=== PATIENT | male | born 1945 | race Hispanic/Latino ===

== ENCOUNTER 2021-11-23 22:41 | Inpatient (IN) | payer MEDICARE ==
[2021-11-23] MEDS ORDERED: ACETAMINOPHEN 325 MG TAB PO PRN (23:05)
[2021-11-23] MEDS ORDERED: ONDANSETRON 4 MG/2 ML INJ IV PRN (23:05)
[2021-11-23] MEDS ORDERED: ALBUTEROL 2.5 MG/3 ML NEBU IH PRN (23:05)
[2021-11-24 02:53] LABS: Hematocrit 41.1 % (35.5-45.6); Mean Corpuscular HGB Conc 32 % (32-34); Mean Corpuscular Volume 95 fl (84-94); Platelet Count 133 K/mm3 (140-440); Red Blood Count 4.32 M/mm3 (3.65-5.03)
[2021-11-24 02:55] LABS: Red Cell Distribution Width 20.7 % (13.2-15.2)
[2021-11-24] MEDS: cefTRIAXone/NS 2 GM/100 ML 2 GM/100 ML BAG IV SCH (02:55)
[2021-11-24] MEDS: MORPHINE 2 MG/1 ML INJ IV PRN (03:07)
[2021-11-24 03:35] LABS: Basophils % (Manual) 0 % (0.0-1.8); Eosinophils % (Manual) 0 % (0.0-4.3); Total Cells Counted 100
[2021-11-24 03:36] LABS: Anisocytosis 1+; Platelet Estimate Consistent w Auto
[2021-11-24 03:49] LABS: INR 1.14 (0.87-1.13)
--- NOTE | 2021-11-24 03:58 | History and Physical Report ---
History of Present Illness Date of examination: 11/24/21 Date of admission: 11/23/21 23:19 Chief complaint: Sepsis Lethargy History of present illness: This is a 76 years old male with past medical history of end-stage renal disease on hemodialysis Thursday, , Thursday and cirrhosis was brought to the hospital from [place] because of sepsis and left lower lobe pneumonia. Most of the history is obtained from the chart patient initially presented to the [facility] on November 18 with complaint of nausea vomiting that began the night of. Around 9 PM. Patient was bedtime at the [facility] and had his last meal around 5 PM. In [facility] patient is found to have pneumonia with effusion patient reportedly has a history of liver failure as well as CT there revealed cirrhosis. In the ER patient reportedly appeared to be dehydrated and was found to have in septic shock with mean arterial pressure of 54. He was admitted to the hospital was put on antibiotic and Levophed. Patient had leukocytosis of 14.66. Renal function indicative of end-stage renal disease, lactic at 10 downtrending to 5.5 . patient was admitted for septic shock, pneumonia and end-stage renal disease Past History Past Medical History: ESRD, other (Cirrhosis, pneumonia, septic shock) Past Surgical History: No surgical history, Other Social history: other (Former smoker) Family history: hypertension Medications and Allergies Allergies Allergy/AdvReac Type Severity Reaction Status Date / Time No Known Allergies Allergy Verified 11/24/21 02:09 Active Meds: Active Medications Acetaminophen (Acetaminophen 325 Mg Tab) 650 mg PO Q4H PRN PRN Reason: Pain MILD(1-3)/Fever >100.5/HOLLOWAY Albuterol (Albuterol 2.5 Mg/3 Ml Nebu) 2.5 mg IH Q4HRT PRN PRN Reason: Shortness Of Breath Albuterol/Ipratropium (Ipratropium/Albuterol Sulfate 3 Ml Ampul.Neb) 1 ampul IH Q6HRT [facility] Famotidine (Famotidine 20 Mg Tab) 20 mg PO BID [facility] Ceftriaxone Sodium (Rocephin/Ns 2 Gm/100 Ml) 2 gm in 100 mls @ 200 mls/hr IV Q24H [facility]; Protocol Last Admin: 11/24/21 02:55 Dose: 200 mls/hr Morphine Sulfate (Morphine 2 Mg/1 Ml Inj) 2 mg IV Q4H PRN PRN Reason: Pain, Moderate (4-6) Last Admin: 11/24/21 03:07 Dose: 2 mg Morphine Sulfate (Morphine 4 Mg/1 Ml Inj) 4 mg IV Q4H PRN PRN Reason: Pain , Severe (7-10) Ondansetron HCl (Ondansetron 4 Mg/2 Ml Inj) 4 mg IV Q8H PRN PRN Reason: Nausea And Vomiting Sodium Chloride (Sodium Chloride 0.9% 10 Ml Flush Syringe) 10 ml IV BID [facility] Sodium Chloride (Sodium Chloride 0.9% 10 Ml Flush Syringe) 10 ml IV PRN PRN PRN Reason: LINE FLUSH Review of Systems All systems: negative Constitutional: fatigue, weakness, malaise, lethargy Exam - Constitutional Vitals: Temp Pulse Resp BP Pulse Ox 98 F 121 H 22 111/72 100 11/24/21 01:35 11/24/21 03:01 11/24/21 03:07 11/24/21 03:01 11/24/21 03:01 General appearance: Present: mild distress, well-nourished - EENT Eyes: Present: PERRL ENT: hearing intact, clear oral mucosa - Neck Neck: Present: supple, normal ROM - Respiratory Respiratory effort: normal Respiratory: bilateral: CTA - Cardiovascular Heart Sounds: Present: S1 & S2. Absent: rub, click - Extremities Extremities: pulses symmetrical, No edema Peripheral Pulses: within normal limits - Abdominal General gastrointestinal: Present: soft, non-tender, non-distended, normal bowel sounds Male genitourinary: Present: normal - Integumentary Integumentary: Present: clear, warm, dry - Musculoskeletal Musculoskeletal: gait normal, strength equal bilaterally - Psychiatric Psychiatric: other (Patient is altered mental status) - Neurologic Neurologic: CNII-XII intact, moves all extremities, other (Patient is altered mental status) Results - Labs CBC & Chem 7: 11/24/21 02:37 11/24/21 03:19 Labs: Laboratory Last Values WBC 9.0 K/mm3 (4.5-11.0) 11/24/21 02:37 RBC 4.32 M/mm3 (3.65-5.03) 11/24/21 02:37 Hgb 13.0 gm/dl (11.8-15.2) 11/24/21 02:37 Hct 41.1 % (35.5-45.6) 11/24/21 02:37 MCV 95 fl (84-94) H 11/24/21 02:37 MCH 30 pg (28-32) 11/24/21 02:37 MCHC 32 % (32-34) 11/24/21 02:37 RDW 20.7 % (13.2-15.2) H 11/24/21 02:37 Plt Count 133 K/mm3 (140-440) L 11/24/21 02:37 Add Manual Diff Complete 11/24/21 02:37 Total Counted 100 11/24/21 02:37 Seg Neuts % (Manual) 80.0 % (40.0-70.0) H 11/24/21 02:37 Band Neutrophils % 0 % 11/24/21 02:37 Lymphocytes % (Manual) 9.0 % (13.4-35.0) L 11/24/21 02:37 Reactive Lymphs % (Man) 1.0 % 11/24/21 02:37 Monocytes % (Manual) 10.0 % (0.0-7.3) H 11/24/21 02:37 Eosinophils % (Manual) 0 % (0.0-4.3) 11/24/21 02:37 Basophils % (Manual) 0 % (0.0-1.8) 11/24/21 02:37 Metamyelocytes % 0 % 11/24/21 02:37 Myelocytes % 0 % 11/24/21 02:37 Promyelocytes % 0 % 11/24/21 02:37 Blast Cells % 0 % 11/24/21 02:37 Nucleated RBC % Not Reportable 11/24/21 02:37 Seg Neutrophils # Man 7.2 K/mm3 (1.8-7.7) 11/24/21 02:37 Band Neutrophils # 0.0 K/mm3 11/24/21 02:37 Lymphocytes # (Manual) 0.8 K/mm3 (1.2-5.4) L 11/24/21 02:37 Abs React Lymphs (Man) 0.1 K/mm3 11/24/21 02:37 Monocytes # (Manual) 0.9 K/mm3 (0.0-0.8) H 11/24/21 02:37 Eosinophils # (Manual) 0.0 K/mm3 (0.0-0.4) 11/24/21 02:37 Basophils # (Manual) 0.0 K/mm3 (0.0-0.1) 11/24/21 02:37 Metamyelocytes # 0.0 K/mm3 11/24/21 02:37 Myelocytes # 0.0 K/mm3 11/24/21 02:37 Promyelocytes # 0.0 K/mm3 11/24/21 02:37 Blast Cells # 0.0 K/mm3 11/24/21 02:37 WBC Morphology Not Reportable 11/24/21 02:37 Hypersegmented Neuts Not Reportable 11/24/21 02:37 Hyposegmented Neuts Not Reportable 11/24/21 02:37 Hypogranular Neuts Not Reportable 11/24/21 02:37 Smudge Cells Not Reportable 11/24/21 02:37 Toxic Granulation Not Reportable 11/24/21 02:37 Toxic Vacuolation Not Reportable 11/24/21 02:37 Dohle Bodies Not Reportable 11/24/21 02:37 Pelger-Huet Anomaly Not Reportable 11/24/21 02:37 Jasmeet Rods Not Reportable 11/24/21 02:37 Platelet Estimate Consistent w auto 11/24/21 02:37 Clumped Platelets Not Reportable 11/24/21 02:37 Plt Clumps, EDTA Not Reportable 11/24/21 02:37 Large Platelets Not Reportable 11/24/21 02:37 Giant Platelets Not Reportable 11/24/21 02:37 Platelet Satelliting Not Reportable 11/24/21 02:37 Plt Morphology Comment Not Reportable 11/24/21 02:37 RBC Morphology Not Reportable 11/24/21 02:37 Dimorphic RBCs Not Reportable 11/24/21 02:37 Polychromasia Not Reportable 11/24/21 02:37 Hypochromasia Not Reportable 11/24/21 02:37 Poikilocytosis Not Reportable 11/24/21 02:37 Anisocytosis 1+ 11/24/21 02:37 Microcytosis Not Reportable 11/24/21 02:37 Macrocytosis Not Reportable 11/24/21 02:37 Spherocytes Not Reportable 11/24/21 02:37 Pappenheimer Bodies Not Reportable 11/24/21 02:37 Sickle Cells Not Reportable 11/24/21 02:37 Target Cells Not Reportable 11/24/21 02:37 Tear Drop Cells Not Reportable 11/24/21 02:37 Ovalocytes Not Reportable 11/24/21 02:37 Helmet Cells Not Reportable 11/24/21 02:37 [place] Bodies Not Reportable 11/24/21 02:37 [place] Rings Not Reportable 11/24/21 02:37 [place] Cells Not Reportable 11/24/21 02:37 Bite Cells Not Reportable 11/24/21 02:37 Crenated Cell Not Reportable 11/24/21 02:37 Elliptocytes Not Reportable 11/24/21 02:37 Acanthocytes (Spur) Not Reportable 11/24/21 02:37 Rouleaux Not Reportable 11/24/21 02:37 Hemoglobin C Crystals Not Reportable 11/24/21 02:37 Schistocytes Not Reportable 11/24/21 02:37 Malaria parasites Not Reportable 11/24/21 02:37 Christopher Bodies Not Reportable 11/24/21 02:37 Hem Pathologist Commnt No 11/24/21 02:37 PT 15.9 Sec. (12.2-14.9) H 11/24/21 03:19 INR 1.14 (0.87-1.13) H 11/24/21 03:19 POC Glucose 75 mg/dL (70-105) 11/24/21 01:38 Assessment and Plan VTE prophylaxis?: Mechanical Plan of care discussed with patient/family: Yes - Patient Problems (1) Sepsis Current Visit: Yes Status: Acute Plan to address problem: Admit the patient to the [facility] overnight. Rocephin 2 g IV daily. Zithromax 500 mg IV daily. We will do the blood culture and sputum culture. consult infectious disease if needed. Recheck CBC BMP in the morning (2) Pneumonia Current Visit: Yes Status: Acute Plan to address problem: Oxygen by nasal cannula 3 L/min. DuoNeb by nebulizer every 4 hours. Albuterol via nebulizer every 4 hours as needed. Rocephin 2 g IV daily. Zithromax 500 mg IV daily. We will do the blood culture and sputum culture. consult infectious disease if needed. Recheck CBC BMP in the morning (3) End-stage renal disease on hemodialysis Current Visit: Yes Status: Acute Plan to address problem: Will consult nephrology for hemodialysis in the morning. Recheck BMP in the morning. Avoid nephrotoxic drug. Renally dose medication (4) Cirrhosis Current Visit: Yes Status: Acute Plan to address problem: We will continue the home medication. Recheck CMP in the morning (5) Metabolic encephalopathy Current Visit: Yes Status: Acute Plan to address problem: Most likely secondary to sepsis, cirrhosis and end-stage renal disease. Rocephin 2 g IV daily. Zithromax 500 mg IV daily. We will do the blood culture and sputum culture. consult infectious disease. Recheck CBC BMP in the morning (6) Transaminitis Current Visit: Yes Status: Acute Plan to address problem: Patient has very high liver function test. Pepcid 20 mg p.o. twice daily. Will consult GI for evaluation. Recheck CMP in the morning (7) Elevated troponin Current Visit: Yes Status: Acute Plan to address problem: Aspirin 81 mg p.o. daily. We will hold the Lipitor for elevated liver function test. Consult cardiology for evaluation. Echocardiogram (8) DVT prophylaxis Current Visit: Yes Status: Acute Plan to address problem: SCD for DVT prophylaxis. Pepcid 20 mg IV every 12 hours for GI prophylaxis. Patient is a full code
--- NOTE | 2021-11-24 04:06 | XRay Report ---
Chest single view INDICATION: Dyspnea IMPRESSION: Cardiomegaly with mild bilateral cardiopulmonary edema and small pleural effusions. Signer Name: Alfonzo Cortez MD Signed: 11/24/2021 4:02 AM Workstation Name: [email or web address]
[2021-11-24 04:09] LABS: Creatine Kinase MB 2.8 ng/mL (0.0-4.0)
[2021-11-24] MEDS ORDERED: cefTRIAXone/NS 2 GM/100 ML 2 GM/100 ML BAG IV SCH (05:00)
[2021-11-24 05:11] LABS: Albumin 3.5 g/dL (3.9-5); Calcium 9.4 mg/dL (8.4-10.2); Chol/HDL Ratio 6.27 %
[2021-11-24] MEDS: AZITHROMYCIN/NS 500 MG/250 ML 500 MG/250 ML BAG IV SCH (05:15)
[2021-11-24] MEDS: FAMOTIDINE 20 MG TAB PO SCH ×2 (09:21→22:59)
[2021-11-24] MEDS: ASPIRIN 81 MG TAB CHEW PO SCH (09:21)
[2021-11-24] MEDS: IPRATROPIUM/ALBUTEROL SULFATE 3 ML AMPUL.NEB IH SCH (10:10)
--- NOTE | 2021-11-24 11:43 | Gastroenterology Consultation ---
History of Present Illness - Reason for Consult Consult date: 11/24/21 abnormal liver enzymes Requesting physician: VALERIE VIZCAINO - History of Present Illness The patient is a 76 yo male with h/o esrd and cirrhosis who presented from hospital in [place] with sepsis/pneumonia and AMS. History obtained from chart review and staff as patient unable to provide history. [place], consuming alcohol, found to have pneumonia/sepsis. h e is not providing history at time of exam, opens eyes but not much more. no prior records. abnormal liver enzymes on admission, unclear baseline. Past History Past Medical History: ESRD, other (Cirrhosis, pneumonia, septic shock) Past Surgical History: No surgical history, Other Social history: other (Former smoker) Family history: hypertension Medications and Allergies Allergies Allergy/AdvReac Type Severity Reaction Status Date / Time No Known Allergies Allergy Verified 11/24/21 02:09 Active Meds: Active Medications Acetaminophen (Acetaminophen 325 Mg Tab) 650 mg PO Q4H PRN PRN Reason: Pain MILD(1-3)/Fever >100.5/[place] Albuterol (Albuterol 2.5 Mg/3 Ml Nebu) 2.5 mg IH Q4HRT PRN PRN Reason: Shortness Of Breath Albuterol/Ipratropium (Ipratropium/Albuterol Sulfate 3 Ml Ampul.Neb) 1 ampul IH Q6HRT [facility] Last Admin: 11/24/21 10:10 Dose: Not Given Aspirin (Aspirin 81 Mg Tab Chew) 81 mg PO QDAY [facility] Last Admin: 11/24/21 09:21 Dose: 81 mg Famotidine (Famotidine 20 Mg Tab) 20 mg PO BID [facility] Last Admin: 11/24/21 09:21 Dose: 20 mg Ceftriaxone Sodium (Rocephin/Ns 2 Gm/100 Ml) 2 gm in 100 mls @ 200 mls/hr IV Q24H [facility]; Protocol Last Admin: 11/24/21 02:55 Dose: 200 mls/hr Azithromycin (Zithromax/Ns) 500 mg in 250 mls @ 250 mls/hr IV Q24H [facility] Stop: 11/30/21 23:59 Last Admin: 11/24/21 05:15 Dose: 250 mls/hr Morphine Sulfate (Morphine 2 Mg/1 Ml Inj) 2 mg IV Q4H PRN PRN Reason: Pain, Moderate (4-6) Last Admin: 11/24/21 03:07 Dose: 2 mg Morphine Sulfate (Morphine 4 Mg/1 Ml Inj) 4 mg IV Q4H PRN PRN Reason: Pain , Severe (7-10) Ondansetron HCl (Ondansetron 4 Mg/2 Ml Inj) 4 mg IV Q8H PRN PRN Reason: Nausea And Vomiting Sodium Chloride (Sodium Chloride 0.9% 10 Ml Flush Syringe) 10 ml IV BID [facility] Last Admin: 11/24/21 09:21 Dose: 10 ml Sodium Chloride (Sodium Chloride 0.9% 10 Ml Flush Syringe) 10 ml IV PRN PRN PRN Reason: LINE FLUSH Reviewed/updated patient's home and current medications Review of Systems - Review of Systems ROS unobtainable: due to mental status Exam - Constitutional Vital Signs: Temp Pulse Resp BP Pulse Ox 97.6 F 101 H 16 138/70 100 11/24/21 04:00 11/24/21 10:00 11/24/21 10:00 11/24/21 10:00 11/24/21 09:30 General appearance: no acute distress - Respiratory Respiratory effort: normal Respiratory: bilateral: CTA - Cardiovascular Rhythm: regular Heart Sounds: Present: S1 & S2 - Gastrointestinal General gastrointestinal: Present: distended, other (+ ascites) - Neurologic Neurological: disoriented - Labs CBC & Chem 7: 11/24/21 02:37 11/24/21 03:19 Lab Results: Laboratory Results - last 24 hr 11/24/21 11/24/21 11/24/21 01:38 02:37 03:19 WBC 9.0 RBC 4.32 Hgb 13.0 Hct 41.1 MCV 95 H MCH 30 MCHC 32 RDW 20.7 H Plt Count 133 L Add Manual Diff Complete Total Counted 100 Seg Neuts % (Manual) 80.0 H Band Neutrophils % 0 Lymphocytes % (Manual) 9.0 L Reactive Lymphs % (Man) 1.0 Monocytes % (Manual) 10.0 H Eosinophils % (Manual) 0 Basophils % (Manual) 0 Metamyelocytes % 0 Myelocytes % 0 Promyelocytes % 0 Blast Cells % 0 Nucleated RBC % Not Reportable Seg Neutrophils # Man 7.2 Band Neutrophils # 0.0 Lymphocytes # (Manual) 0.8 L Abs React Lymphs (Man) 0.1 Monocytes # (Manual) 0.9 H Eosinophils # (Manual) 0.0 Basophils # (Manual) 0.0 Metamyelocytes # 0.0 Myelocytes # 0.0 Promyelocytes # 0.0 Blast Cells # 0.0 WBC Morphology Not Reportable Hypersegmented Neuts Not Reportable Hyposegmented Neuts Not Reportable Hypogranular Neuts Not Reportable Smudge Cells Not Reportable Toxic Granulation Not Reportable Toxic Vacuolation Not Reportable Dohle Bodies Not Reportable Pelger-Huet Anomaly Not Reportable Jasmeet Rods Not Reportable Platelet Estimate Consistent w auto Clumped Platelets Not Reportable Plt Clumps, EDTA Not Reportable Large Platelets Not Reportable Giant Platelets Not Reportable Platelet Satelliting Not Reportable Plt Morphology Comment Not Reportable RBC Morphology Not Reportable Dimorphic RBCs Not Reportable Polychromasia Not Reportable Hypochromasia Not Reportable Poikilocytosis Not Reportable Anisocytosis 1+ Microcytosis Not Reportable Macrocytosis Not Reportable Spherocytes Not Reportable Pappenheimer Bodies Not Reportable Sickle Cells Not Reportable Target Cells Not Reportable Tear Drop Cells Not Reportable Ovalocytes Not Reportable Helmet Cells Not Reportable [place] Bodies Not Reportable [place] Rings Not Reportable [place] Cells Not Reportable Bite Cells Not Reportable Crenated Cell Not Reportable Elliptocytes Not Reportable Acanthocytes (Spur) Not Reportable Rouleaux Not Reportable Hemoglobin C Crystals Not Reportable Schistocytes Not Reportable Malaria parasites Not Reportable Christopher Bodies Not Reportable Hem Pathologist Commnt No PT 15.9 H INR 1.14 H Sodium Potassium Chloride Carbon Dioxide Anion Gap BUN Creatinine Estimated GFR BUN/Creatinine Ratio Glucose POC Glucose 75 Lactic Acid Calcium Total Bilirubin AST ALT Alkaline Phosphatase Ammonia Total Creatine Kinase CK-MB (CK-2) CK-MB (CK-2) Rel Index Troponin T Total Protein Albumin Albumin/Globulin Ratio Triglycerides Cholesterol LDL Cholesterol Direct HDL Cholesterol Cholesterol/HDL Ratio 11/24/21 11/24/21 11/24/21 03:19 03:19 04:38 WBC RBC Hgb Hct MCV MCH MCHC RDW Plt Count Add Manual Diff Total Counted Seg Neuts % (Manual) Band Neutrophils % Lymphocytes % (Manual) Reactive Lymphs % (Man) Monocytes % (Manual) Eosinophils % (Manual) Basophils % (Manual) Metamyelocytes % Myelocytes % Promyelocytes % Blast Cells % Nucleated RBC % Seg Neutrophils # Man Band Neutrophils # Lymphocytes # (Manual) Abs React Lymphs (Man) Monocytes # (Manual) Eosinophils # (Manual) Basophils # (Manual) Metamyelocytes # Myelocytes # Promyelocytes # Blast Cells # WBC Morphology Hypersegmented Neuts Hyposegmented Neuts Hypogranular Neuts Smudge Cells Toxic Granulation Toxic Vacuolation Dohle Bodies Pelger-Huet Anomaly Jasmeet Rods Platelet Estimate Clumped Platelets Plt Clumps, EDTA Large Platelets Giant Platelets Platelet Satelliting Plt Morphology Comment RBC Morphology Dimorphic RBCs Polychromasia Hypochromasia Poikilocytosis Anisocytosis Microcytosis Macrocytosis Spherocytes Pappenheimer Bodies Sickle Cells Target Cells Tear Drop Cells Ovalocytes Helmet Cells [place] Bodies [place] Rings [place] Cells Bite Cells Crenated Cell Elliptocytes Acanthocytes (Spur) Rouleaux Hemoglobin C Crystals Schistocytes Malaria parasites Christopher Bodies Hem Pathologist Commnt PT INR Sodium 138 Potassium 3.8 Chloride 95.8 L Carbon Dioxide 20 L Anion Gap 26 BUN 30 H Creatinine 4.6 H Estimated GFR 12 BUN/Creatinine Ratio 7 Glucose 81 POC Glucose Lactic Acid Calcium 9.4 Total Bilirubin 2.50 H AST 330 H ALT 324 H Alkaline Phosphatase 170 H Ammonia 31.0 Total Creatine Kinase 66 CK-MB (CK-2) 2.8 CK-MB (CK-2) Rel Index 4.2 H Troponin T 0.560 H* Total Protein 5.6 L Albumin 3.5 L Albumin/Globulin Ratio 1.7 Triglycerides 215 H Cholesterol 138 LDL Cholesterol Direct 53 HDL Cholesterol 22 L Cholesterol/HDL Ratio 6.27 11/24/21 04:38 WBC RBC Hgb Hct MCV MCH MCHC RDW Plt Count Add Manual Diff Total Counted Seg Neuts % (Manual) Band Neutrophils % Lymphocytes % (Manual) Reactive Lymphs % (Man) Monocytes % (Manual) Eosinophils % (Manual) Basophils % (Manual) Metamyelocytes % Myelocytes % Promyelocytes % Blast Cells % Nucleated RBC % Seg Neutrophils # Man Band Neutrophils # Lymphocytes # (Manual) Abs React Lymphs (Man) Monocytes # (Manual) Eosinophils # (Manual) Basophils # (Manual) Metamyelocytes # Myelocytes # Promyelocytes # Blast Cells # WBC Morphology Hypersegmented Neuts Hyposegmented Neuts Hypogranular Neuts Smudge Cells Toxic Granulation Toxic Vacuolation Dohle Bodies Pelger-Huet Anomaly Jasmeet Rods Platelet Estimate Clumped Platelets Plt Clumps, EDTA Large Platelets Giant Platelets Platelet Satelliting Plt Morphology Comment RBC Morphology Dimorphic RBCs Polychromasia Hypochromasia Poikilocytosis Anisocytosis Microcytosis Macrocytosis Spherocytes Pappenheimer Bodies Sickle Cells Target Cells Tear Drop Cells Ovalocytes Helmet Cells [place] Bodies [place] Rings [place] Cells Bite Cells Crenated Cell Elliptocytes Acanthocytes (Spur) Rouleaux Hemoglobin C Crystals Schistocytes Malaria parasites Christopher Bodies Hem Pathologist Commnt PT INR Sodium Potassium Chloride Carbon Dioxide Anion Gap BUN Creatinine Estimated GFR BUN/Creatinine Ratio Glucose POC Glucose Lactic Acid 1.30 Calcium Total Bilirubin AST ALT Alkaline Phosphatase Ammonia Total Creatine Kinase CK-MB (CK-2) CK-MB (CK-2) Rel Index Troponin T Total Protein Albumin Albumin/Globulin Ratio Triglycerides Cholesterol LDL Cholesterol Direct HDL Cholesterol Cholesterol/HDL Ratio Assessment and Plan 1. Decompensated cirrhosis - reportedly with cirrhosis and has ascites on exam, and suspect AMS component could be HE. etiology unclear, ? alcohol, check viral hep serologies. recommend abdominal US with doppler 2. AMS - could have HE, recommend lactulose scheduled every 6-8 hours with goal of 3 bm's until mentation improves, and xifaxin bid dosing 3. Ascites - unable to use diuretics (ESRD); on empiric abx for sepsis which should empirically cover for potential sbp as well.
--- NOTE | 2021-11-24 11:51 | Consultation ---
History of Present Illness Consult date: 11/24/21 Reason for consult: pneumonia History of present illness: This is a 76 years old male with past medical history of end-stage renal disease on hemodialysis Thursday, , Thursday and cirrhosis was brought to the hospital from [place] because of sepsis and left lower lobe pneumonia. Most of the history is obtained from the chart patient initially presented to the [facility] on November 18 with complaint of nausea vomi ting that began the night of. Around 9 PM. In [facility] patient is found to have pneumonia with effusion patient reportedly has a history of liver failure as well as CT there revealed cirrhosis. In the ER patient reportedly appeared to be dehydrated and was found to have in septic shock with mean arterial pressure of 54. He was admitted to the hospital was put on antibiotic and Levophed. Patient had leukocytosis of 14.66. Renal function indicative of end-stage renal disease, lactic at 10 downtrending to 5.5 . patient was admitted for septic shock, pneumonia and end-stage renal disease. According to the chart, patient has history of smoking. Patient lethrgic and sleepy and unable to give any history. Patient sleeping, Not responding to verbal stimuli. Patient is on room air, O2 saturation running 99%. No acute respiratory distress. Patient afebrile. No leukocytosis. Blood pressure 143/79 , Pulse 117 , respirations 17. Chest xray done 11/23/21 reported Cardiomegaly with mild bilateral cardiopulmonary edema and small pleural effusions. Patient is on albuterol/atrovent aerosol treatments, Famotidine, Ceftriaxone and zithromax. Recommend DVT prophylaxis, at least SCDs Past History Past Medical History: ESRD, other (Cirrhosis, pneumonia, septic shock) Past Surgical History: No surgical history, Other Social history: other (Former smoker) Family history: hypertension Medications and Allergies Allergies Allergy/AdvReac Type Severity Reaction Status Date / Time No Known Allergies Allergy Verified 11/24/21 02:09 Home Medications Medication Instructions Recorded Confirmed Last Taken Type ALBUTEROL NEB's [Proventil 0.083% 1 puff PO Q40MIN PRN 11/24/21 11/24/21 Unknown History NEBS] Aspirin [Aspirin BABY CHEW TAB] 81 mg PO QDAY 11/24/21 11/24/21 Unknown History Carafate 1 gm PO ACHS 11/24/21 11/24/21 Unknown History Darbepoetin Hari in Polysorbat 60 mcg SQ QWEEK 11/24/21 11/24/21 Unknown History [Aranesp] Folic Acid [Folvite] 1 mg PO QDAY 11/24/21 11/24/21 Unknown History Furosemide [Lasix] 40 mg PO QDAY 11/24/21 11/24/21 Unknown History Loratadine [Allergy Relief] 10 mg PO QDAY 11/24/21 11/24/21 Unknown History Pantoprazole [Protonix] 40 mg PO BID 11/24/21 11/24/21 Unknown History Simvastatin 20 mg PO QHS 11/24/21 11/24/21 Unknown History allopurinoL [Zyloprim] 100 mg PO QDAY 11/24/21 11/24/21 Unknown History amLODIPine 5 mg PO QDAY 11/24/21 11/24/21 Unknown History Active Meds: Active Medications Acetaminophen (Acetaminophen 325 Mg Tab) 650 mg PO Q4H PRN PRN Reason: Pain MILD(1-3)/Fever >100.5/HO[place]AY Albuterol (Albuterol 2.5 Mg/3 Ml Nebu) 2.5 mg IH Q4HRT PRN PRN Reason: Shortness Of Breath Albuterol/Ipratropium (Ipratropium/Albuterol Sulfate 3 Ml Ampul.Neb) 1 ampul IH Q6HRT [facility] Last Admin: 11/24/21 10:10 Dose: Not Given Aspirin (Aspirin 81 Mg Tab Chew) 81 mg PO QDAY [facility] Last Admin: 11/24/21 09:21 Dose: 81 mg Famotidine (Famotidine 20 Mg Tab) 20 mg PO BID [facility] Last Admin: 11/24/21 09:21 Dose: 20 mg Ceftriaxone Sodium (Rocephin/Ns 2 Gm/100 Ml) 2 gm in 100 mls @ 200 mls/hr IV Q24H [facility]; Protocol Last Admin: 11/24/21 02:55 Dose: 200 mls/hr Azithromycin (Zithromax/Ns) 500 mg in 250 mls @ 250 mls/hr IV Q24H [facility] Stop: 11/30/21 23:59 Last Admin: 11/24/21 05:15 Dose: 250 mls/hr Morphine Sulfate (Morphine 2 Mg/1 Ml Inj) 2 mg IV Q4H PRN PRN Reason: Pain, Moderate (4-6) Last Admin: 11/24/21 03:07 Dose: 2 mg Morphine Sulfate (Morphine 4 Mg/1 Ml Inj) 4 mg IV Q4H PRN PRN Reason: Pain , Severe (7-10) Ondansetron HCl (Ondansetron 4 Mg/2 Ml Inj) 4 mg IV Q8H PRN PRN Reason: Nausea And Vomiting Sodium Chloride (Sodium Chloride 0.9% 10 Ml Flush Syringe) 10 ml IV BID [facility] Last Admin: 11/24/21 09:21 Dose: 10 ml Sodium Chloride (Sodium Chloride 0.9% 10 Ml Flush Syringe) 10 ml IV PRN PRN PRN Reason: LINE FLUSH Review of Systems All systems: negative Physical Examination Vital signs: Vital Signs Pulse 118 H 11/24/21 01:33 General appearance: no acute distress, lethargic, asleep Eyes: icteric ENT: oropharynx moist Neck: supple, no JVD Effort: mildly labored Ascultation: Bilateral: rales Cardiovascular: regular rate and rhythm Gastrointestinal: hypoactive bowel sounds, soft, non-tender Integumentary: normal Extremities: no cyanosis, no edema Musculoskeletal: no deformities Gait: other (an not assess at this time.) unable to assess other (Patient lethergic and sleepy.) Results - Laboratory Findings CBC and BMP: 11/25/21 04:23 11/25/21 04:23 PT/INR, D-dimer PT 15.9 Sec. (12.2-14.9) H 11/24/21 03:19 INR 1.14 (0.87-1.13) H 11/24/21 03:19 Abnormal lab findings: Abnormal Labs 11/24/21 11/24/21 11/24/21 02:37 03:19 03:19 MCV 95 H RDW 20.7 H Plt Count 133 L Seg Neuts % (Manual) 80.0 H Lymphocytes % (Manual) 9.0 L Monocytes % (Manual) 10.0 H Lymphocytes # (Manual) 0.8 L Monocytes # (Manual) 0.9 H PT 15.9 H INR 1.14 H Chloride 95.8 L Carbon Dioxide 20 L BUN 30 H Creatinine 4.6 H Total Bilirubin 2.50 H AST 330 H ALT 324 H Alkaline Phosphatase 170 H CK-MB (CK-2) Rel Index Troponin T Total Protein 5.6 L Albumin 3.5 L Triglycerides 215 H HDL Cholesterol 22 L 11/24/21 03:19 MCV RDW Plt Count Seg Neuts % (Manual) Lymphocytes % (Manual) Monocytes % (Manual) Lymphocytes # (Manual) Monocytes # (Manual) PT INR Chloride Carbon Dioxide BUN Creatinine Total Bilirubin AST ALT Alkaline Phosphatase CK-MB (CK-2) Rel Index 4.2 H Troponin T 0.560 H* Total Protein Albumin Triglycerides HDL Cholesterol - Diagnostic Findings Chest x-ray: report reviewed, image reviewed Additional studies: Chest single view 11/23/21 INDICATION: Dyspnea IMPRESSION: Cardiomegaly with mild bilateral cardiopulmonary edema and small pleural effusions. Assessment and Plan This is a 76 years old male with past medical history of end-stage renal disease on hemodialysis Thursday, , Thursday and cirrhosis was brought to the hospital from [place] because of sepsis and left lower lobe pneumonia. Most of the history is obtained from the chart patient initially presented to the [facility] on November 18 with complaint of nausea vomiting that began the night of. Around 9 PM. In [facility] patient is found to have pneumonia with effusion patient reportedly has a history of liver failure as well as CT there revealed cirrhosis. In the ER patient reportedly appeared to be dehydrated and was found to have in septic shock with mean arterial pressure of 54. He was admitted to the hospital was put on antibiotic and Levophed. Patient had leukocytosis of 14.66. Renal function indicative of end-stage renal disease, lactic at 10 downtrending to 5.5 . patient was admitted for septic shock, pneumonia and end-stage renal disease. According to the chart, patient has history of smoking. Patient lethrgic and sleepy and unable to give any history. Patient sleeping, Not responding to verbal stimuli. Patient is on room air, O2 saturation running 99%. No acute respiratory distress. Patient afebrile. No leukocytosis. Blood pressure 143/79 , Pulse 117 , res pirations 17. Chest xray done 11/23/21 reported Cardiomegaly with mild bilateral cardiopulmonary edema and small pleural effusions. Patient is on albuterol/atrovent aerosol treatments, Famotidine, Ceftriaxone and zithromax. Recommend DVT prophylaxis, at least SCDs I spent critical care time of 50 minutes, reviwing the chart, examine the patient, review ches xray and lab results and work up plan of treatment in this critically ill patient. - Patient Problems (1) Pulmonary edema Current Visit: Yes Status: Acute Plan to address problem: Recommend lasix. Management as per cardiology. (2) End-stage renal disease on hemodialysis Current Visit: Yes Status: Acute Plan to address problem: Management as per nephrology. (3) Cirrhosis Current Visit: Yes Status: Acute Plan to address problem: Management as per primary care and gastroenterology. (4) Elevated troponin Current Visit: Yes Status: Acute Plan to address problem: Management as per Cardiology. (5) Metabolic encephalopathy Current Visit: Yes Status: Acute Plan to address problem: Management as per primary care and neurology. (6) Pneumonia Current Visit: Yes Status: Acute Plan to address problem: Chest xray more of suggestive as pulmonary edema. In caee underlying infection, Patient empirically covered with ceftriaxone and Zithromax. (7) Sepsis Current Visit: Yes Status: Acute Plan to address problem: Patient is on ceftriaxone and Zithromax.
[2021-11-24] MEDS: MORPHINE 4 MG/1 ML INJ IV PRN ×3 (12:56→23:00)
--- NOTE | 2021-11-24 12:57 | Consultation ---
History of Present Illness - Reason for Consult Consult date: 11/24/21 end stage renal disease - History of Present Illness RFC: ESRD on HD HPI: 76 years old male with past medical history of end-stage renal disease on hemodialysis Thursday, , Thursday and cirrhosis admitted with Sepsis and PNA. He is currently confused and cannot give proper history. He lives in [place], [place]. ROS: Unable to obtain as pt is confused Past History Past Medical History: ESRD, other (Cirrhosis, pneumonia, septic shock) Past Surgical History: No surgical history, Other Social history: other (Former smoker) Family history: hypertension Medications and Allergies Allergies Allergy/AdvReac Type Severity Reaction Status Date / Time No Known Allergies Allergy Verified 11/24/21 02:09 Active Meds: Active Medications Acetaminophen (Acetaminophen 325 Mg Tab) 650 mg PO Q4H PRN PRN Reason: Pain MILD(1-3)/Fever >100.5/[place] Albuterol (Albuterol 2.5 Mg/3 Ml Nebu) 2.5 mg IH Q4HRT PRN PRN Reason: Shortness Of Breath Albuterol/Ipratropium (Ipratropium/Albuterol Sulfate 3 Ml Ampul.Neb) 1 ampul IH Q6HRT [facility] Last Admin: 11/24/21 10:10 Dose: Not Given Aspirin (Aspirin 81 Mg Tab Chew) 81 mg PO QDAY [facility] Last Admin: 11/24/21 09:21 Dose: 81 mg Famotidine (Famotidine 20 Mg Tab) 20 mg PO BID [facility] Last Admin: 11/24/21 09:21 Dose: 20 mg Ceftriaxone Sodium (Rocephin/Ns 2 Gm/100 Ml) 2 gm in 100 mls @ 200 mls/hr IV Q24H [facility]; Protocol Last Admin: 11/24/21 02:55 Dose: 200 mls/hr Azithromycin (Zithromax/Ns) 500 mg in 250 mls @ 250 mls/hr IV Q24H [facility] Stop: 11/30/21 23:59 Last Admin: 11/24/21 05:15 Dose: 250 mls/hr Morphine Sulfate (Morphine 2 Mg/1 Ml Inj) 2 mg IV Q4H PRN PRN Reason: Pain, Moderate (4-6) Last Admin: 11/24/21 03:07 Dose: 2 mg Morphine Sulfate (Morphine 4 Mg/1 Ml Inj) 4 mg IV Q4H PRN PRN Reason: Pain , Severe (7-10) Ondansetron HCl (Ondansetron 4 Mg/2 Ml Inj) 4 mg IV Q8H PRN PRN Reason: Nausea And Vomiting Sodium Chloride (Sodium Chloride 0.9% 10 Ml Flush Syringe) 10 ml IV BID [facility] Last Admin: 11/24/21 09:21 Dose: 10 ml Sodium Chloride (Sodium Chloride 0.9% 10 Ml Flush Syringe) 10 ml IV PRN PRN PRN Reason: LINE FLUSH Exam - Vital Signs Vital signs: Vital Signs Pulse 118 H 11/24/21 01:33 - Physical Exam Narrative exam: General appearance: Present: mild distress, well-nourished - EENT Eyes: Present: PERRL ENT: hearing intact, clear oral mucosa - Neck Neck: Present: supple, normal ROM - Respiratory Respiratory effort: normal Respiratory: bilateral: CTA - Cardiovascular Heart Sounds: Present: S1 & S2. Absent: rub, click - Extremities Extremities: pulses symmetrical, No edema Peripheral Pulses: within normal limits - Abdominal General gastrointestinal: Present: soft, non-tender, non-distended, normal bowel sounds Male genitourinary: Present: normal - Integumentary Integumentary: Present: clear, warm, dry - Musculoskeletal Musculoskeletal: gait normal, strength equal bilaterally - Psychiatric Psychiatric: other (Patient is altered mental status) - Neurologic Neurologic: CNII-XII intact, moves all extremities, other (Patient is altered mental status) Results - Lab Results 11/24/21 02:37 11/24/21 03:19 Most recent lab results Calcium 9.4 mg/dL (8.4-10.2) 11/24/21 03:19 Assessment and Plan (1) Sepsis (2) Pneumonia (3) End-stage renal disease on hemodialysis (4) Cirrhosis (5) Metabolic encephalopathy (6) Transaminitis (7) Elevated troponin -Lives in [place], [place] -On HD TTS OP -No acute HD indication today -If remains confused tomorrow, can contact family to get HD consent inpatient, otherwise can take consent from him -Renally dose all meds -Monitor Hg for PAUL need Anthony Leach MD [phone]
--- NOTE | 2021-11-24 16:05 | Consultation ---
History of Present Illness Consult date: 11/24/21 Consult reason: elevated troponin History of present illness: The patient is a 76-year-old man with end-stage renal disease on hemodialysis, coronary artery disease and prior remote 2-week coronary bypass, chronic alcoholism and chronic liver cirrhosis. Over the past week, he was hospitalized in [place] for pneumonia and sepsis. After stabilization over several days, his family requested his transfer to continue his care here in [place], where he lives. His home is in [place], he was airlifted to this hospital which was the closest available facility to his home in [place]. On his presentation here yesterday, laboratory values were ordered, including a troponin. Troponin level was measured at 0.56 in the setting of end-stage renal disease with a creatinine of 4.6. The patient has no cardiac complaints, no chest pain, no unusual shortness of breath, no palpitations, no edema. Review of his records from [place] show that an echocardiogram was done and reported left ventricular ejection fraction of 35 to 40%. Patient is currently in the ICU, appears cachectic and chronically ill, but no acute respiratory distress. On monitoring and evaluation advisor, he has a mild sinus tachycardia at 107, with a right bundle branch block morphology, stable blood pressures. A 12-lead ECG is not available in the chart. Chest x-ray on this presentation shows a normal- sized cardiac silhouette, and a hazy opacity of the right lung field. Past History Past Medical History: ESRD, other (Cirrhosis, pneumonia, septic shock) Past Surgical History: No surgical history, Other Social history: other (Former smoker) Family history: hypertension Medications and Allergies Allergies Allergy/AdvReac Type Severity Reaction Status Date / Time No Known Allergies Allergy Verified 11/24/21 02:09 Active Meds: Active Medications Acetaminophen (Acetaminophen 325 Mg Tab) 650 mg PO Q4H PRN PRN Reason: Pain MILD(1-3)/Fever >100.5/[place] Albuterol (Albuterol 2.5 Mg/3 Ml Nebu) 2.5 mg IH Q4HRT PRN PRN Reason: Shortness Of Breath Albuterol/Ipratropium (Ipratropium/Albuterol Sulfate 3 Ml Ampul.Neb) 1 ampul IH Q6HRT [facility] Last Admin: 11/24/21 10:10 Dose: Not Given Aspirin (Aspirin 81 Mg Tab Chew) 81 mg PO QDAY [facility] Last Admin: 11/24/21 09:21 Dose: 81 mg Famotidine (Famotidine 20 Mg Tab) 20 mg PO BID [facility] Last Admin: 11/24/21 09:21 Dose: 20 mg Ceftriaxone Sodium (Rocephin/Ns 2 Gm/100 Ml) 2 gm in 100 mls @ 200 mls/hr IV Q24H [facility]; Protocol Last Admin: 11/24/21 02:55 Dose: 200 mls/hr Azithromycin (Zithromax/Ns) 500 mg in 250 mls @ 250 mls/hr IV Q24H [facility] Stop: 11/30/21 23:59 Last Admin: 11/24/21 05:15 Dose: 250 mls/hr Morphine Sulfate (Morphine 2 Mg/1 Ml Inj) 2 mg IV Q4H PRN PRN Reason: Pain, Moderate (4-6) Last Admin: 11/24/21 03:07 Dose: 2 mg Morphine Sulfate (Morphine 4 Mg/1 Ml Inj) 4 mg IV Q4H PRN PRN Reason: Pain , Severe (7-10) Last Admin: 11/24/21 12:56 Dose: 4 mg Ondansetron HCl (Ondansetron 4 Mg/2 Ml Inj) 4 mg IV Q8H PRN PRN Reason: Nausea And Vomiting Sodium Chloride (Sodium Chloride 0.9% 10 Ml Flush Syringe) 10 ml IV BID [facility] Last Admin: 11/24/21 09:21 Dose: 10 ml Sodium Chloride (Sodium Chloride 0.9% 10 Ml Flush Syringe) 10 ml IV PRN PRN PRN Reason: LINE FLUSH Review of Systems Cardiovascular: shortness of breath, no chest pain, no orthopnea, no palpitations, no rapid/irregular heart beat, no edema, no syncope, no lightheadedness Physical Examination Vital Signs Pulse 118 H 11/24/21 01:33 General appearance: no acute distress, cachectic, other (Chronically ill- appearing) HEENT: Positive: PERRL Neck: Positive: neck supple Cardiac: Positive: Regular Rhythm Lungs: Positive: Decreased Breath Sounds Neuro: Positive: Weakness (Generalized lethargy) Abdomen: Positive: Soft Male genitourinary: Positive: deferred Skin: Positive: Clear Extremities: Absent: edema Results 11/24/21 02:37 11/24/21 03:19 Cardiac Enzymes 11/24/21 11/24/21 11/24/21 Range/Units 03:19 03:19 15:09 AST 330 H (5-40) units/L CK-MB (CK-2) 2.8 3.0 (0.0-4.0) ng/mL Coagulation 11/24/21 Range/Units 03:19 PT 15.9 H (12.2-14.9) Sec. INR 1.14 H (0.87-1.13) Lipids 11/24/21 Range/Units 03:19 Triglycerides 215 H (2-149) mg/dL Cholesterol 138 (50-199) mg/dL HDL Cholesterol 22 L (40-59) mg/dL Cholesterol/HDL Ratio 6.27 % CBC 11/24/21 Range/Units 02:37 WBC 9.0 (4.5-11.0) K/mm3 RBC 4.32 (3.65-5.03) M/mm3 Hgb 13.0 (11.8-15.2) gm/dl Hct 41.1 (35.5-45.6) % Plt Count 133 L (140-440) K/mm3 Comprehensive Metabolic Panel 11/24/21 Range/Units 03:19 Sodium 138 (137-145) mmol/L Potassium 3.8 (3.6-5.0) mmol/L Chloride 95.8 L (98-107) mmol/L Carbon Dioxide 20 L (22-30) mmol/L BUN 30 H (9-20) mg/dL Creatinine 4.6 H (0.8-1.3) mg/dL Glucose 81 (75-100) mg/dL Calcium 9.4 (8.4-10.2) mg/dL AST 330 H (5-40) units/L ALT 324 H (7-56) units/L Alkaline Phosphatase 170 H (35-129) units/L Total Protein 5.6 L (6.3-8.2) g/dL Albumin 3.5 L (3.9-5) g/dL EKG interpretations - Telemetry EKG Rhythm: Sinus Tachycardia (ECG is pending, monitoring and evaluation advisor shows sinus tachycardia 107 with right bundle branch block morphology) Assessment and Plan - Patient Problems (1) Elevated troponin Current Visit: Yes Status: Acute Plan to address problem: Patient has no cardiac complaints, troponin elevation is likely nonspecific finding in the presence of end-stage renal failure. With regards to his history of coronary artery disease, we will recommend optimal guideline directed medical therapy. A twelve-lead EKG will be ordered at this time. In addition, we will order an echocardiogram for reassessment of left ventricular function and valvular function.
--- NOTE | 2021-11-24 17:53 | Progress Note ---
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 Neuro: Acute metabolic encephalopathy. ? Hepatic encephalopathy, current EtOH abuse -Reorientation as needed -Maintain sleep-wake cycle -As needed analgesia -Per family patient's mental status is much improved -Lactulose ME -Ammonia 31 Cardiac: Elevated troponin, h/o HTN, CAD with CABG x3 -Cardiology consulted, appreciate recommendations -Blood pressure monitoring per protocol -Patient was on vasopressor support at OSH but currently not needing any -Echocardiogram from [place] reveals LVEF 35 to 40% Respiratory: Current nicotine abuse -CCM consulted, appreciate recommendations -Currently on room air -SPO2 monitoring -Pulmonary hygiene GI: Moderate protein calorie malnutrition, transaminitis, h/o EtOH cirrhosis -GI consulted, appreciate recommendations -Per family patient has been evaluated by [facility] -Patient takes ME lactulose -PPI -Cardiac, consistent carbohydrate renal diet -Nutrition supplementation -BR: Lactulose ME -Abdominal ultrasound pending -Trend LFTs : ESRD on HD -Nephrology consulted, appreciate recommendations -Monitor intake and output -Outpatient Thursday -HD per nephrology -Renally dose medications -Avoid nephrotoxic medications -Trend BMP ID: r/o Sepsis -Per family patient was being treated for right lower lobe pneumonia and sepsis at OSH and received a total of 7 days of antibiotics -CXR shows cardiomegaly with mild bilateral cardiopulmonary edema and small pleural effusions -Antibiotic therapy with cefepime and vancomycin -Given no leukocytosis, afebrile nature and no clearly identifiable source of infection with likely 7 days of abx therapy at OSH (staph bacteremia treated with nafcillin and Zosyn at OSH per family), will stop cefepime and vancomycin -Restart antibiotic therapy if needed -P.o. rifaximin -f/u blood culture -Monitor WBC and temperature curve Endo: h/o DM -Avoid hypoglycemia -SSI -Accu-Cheks q. 6 Heme: Elevated INR, AOCD -Trend CBC -Transfuse hemoglobin less than 7 -SCDs to BLE while in bed The high probability of a clinically significant, sudden or life threatening deterioration of the [multi] system(s) required my full and direct attention, intervention and personal management. The aggregate critical care time was [60] minutes. 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 Per family patient was out of state in [place] last week during his birthday and felt sick and vomited and was at an urgent care in [place] then transferred over to a facility in [place] for hemodialysis. Per granddaughter patient received dialysis on 10/20 and 10/22. After his treatment on 10/22 patient had altered mental status. Per granddaughter patient was being treated with nafcillin which was changed to Zosyn after blood cultures grew staph and patient also was noted to have pleural effusions. Per documentation patient was started on Levophed for septic shock with lactic acidosis. Patient was admitted to the hospital service with septic shock, pneumonia and ESRD with consults to nephrology, CCM, GI and cardiology. Hospital course to date: 11/24 patient started on lactulose and rifaximin. Due to her inadequate oral intake patient started on Nepro. Echocardiogram completed today. We will also obtain a right upper quadrant ultrasound to rule out biliary duct dilation. Hospitalist Physical - Constitutional Vitals: Temp Pulse Resp BP Pulse Ox 97.4 F L 94 H 14 127/81 99 11/24/21 16:00 11/24/21 16:00 11/24/21 16:00 11/24/21 16:00 11/24/21 16:00 General appearance: Present: no acute distress, cachectic, other (Chronically ill-appearing) - EENT Eyes: Present: PERRL, EOM intact ENT: clear oral mucosa, dentition normal - Neck Neck: Present: normal ROM - Respiratory Respiratory effort: normal Respiratory: bilateral: diminished - Cardiovascular Rhythm: regular Heart Sounds: Present: S1 & S2. Absent: systolic murmur, diastolic murmur - Extremities Extremities: no ischemia, pulses intact, pulses symmetrical, No edema, normal temperature, normal color Peripheral Pulses: within normal limits - Abdominal General gastrointestinal: soft, non-tender, non-distended, normal bowel sounds - Integumentary Integumentary: Present: warm, dry - Psychiatric Psychiatric: cooperative - Neurologic Neurologic: CNII-XII intact, no focal deficits, moves all extremities - Allied Health Allied health notes reviewed: nursing HEART Score - HEART Score Troponin: Troponin T 0.576 ng/mL (0.00-0.029) H* 11/24/21 15:09 Results - Labs CBC & Chem 7: 11/24/21 02:37 11/24/21 03:19 Labs: Laboratory Last Values WBC 9.0 K/mm3 (4.5-11.0) 11/24/21 02:37 RBC 4.32 M/mm3 (3.65-5.03) 11/24/21 02:37 Hgb 13.0 gm/dl (11.8-15.2) 11/24/21 02:37 Hct 41.1 % (35.5-45.6) 11/24/21 02:37 MCV 95 fl (84-94) H 11/24/21 02:37 MCH 30 pg (28-32) 11/24/21 02:37 MCHC 32 % (32-34) 11/24/21 02:37 RDW 20.7 % (13.2-15.2) H 11/24/21 02:37 Plt Count 133 K/mm3 (140-440) L 11/24/21 02:37 Add Manual Diff Complete 11/24/21 02:37 Total Counted 100 11/24/21 02:37 Seg Neuts % (Manual) 80.0 % (40.0-70.0) H 11/24/21 02:37 Band Neutrophils % 0 % 11/24/21 02:37 Lymphocytes % (Manual) 9.0 % (13.4-35.0) L 11/24/21 02:37 Reactive Lymphs % (Man) 1.0 % 11/24/21 02:37 Monocytes % (Manual) 10.0 % (0.0-7.3) H 11/24/21 02:37 Eosinophils % (Manual) 0 % (0.0-4.3) 11/24/21 02:37 Basophils % (Manual) 0 % (0.0-1.8) 11/24/21 02:37 Metamyelocytes % 0 % 11/24/21 02:37 Myelocytes % 0 % 11/24/21 02:37 Promyelocytes % 0 % 11/24/21 02:37 Blast Cells % 0 % 11/24/21 02:37 Nucleated RBC % Not Reportable 11/24/21 02:37 Seg Neutrophils # Man 7.2 K/mm3 (1.8-7.7) 11/24/21 02:37 Band Neutrophils # 0.0 K/mm3 11/24/21 02:37 Lymphocytes # (Manual) 0.8 K/mm3 (1.2-5.4) L 11/24/21 02:37 Abs React Lymphs (Man) 0.1 K/mm3 11/24/21 02:37 Monocytes # (Manual) 0.9 K/mm3 (0.0-0.8) H 11/24/21 02:37 Eosinophils # (Manual) 0.0 K/mm3 (0.0-0.4) 11/24/21 02:37 Basophils # (Manual) 0.0 K/mm3 (0.0-0.1) 11/24/21 02:37 Metamyelocytes # 0.0 K/mm3 11/24/21 02:37 Myelocytes # 0.0 K/mm3 11/24/21 02:37 Promyelocytes # 0.0 K/mm3 11/24/21 02:37 Blast Cells # 0.0 K/mm3 11/24/21 02:37 WBC Morphology Not Reportable 11/24/21 02:37 Hypersegmented Neuts Not Reportable 11/24/21 02:37 Hyposegmented Neuts Not Reportable 11/24/21 02:37 Hypogranular Neuts Not Reportable 11/24/21 02:37 Smudge Cells Not Reportable 11/24/21 02:37 Toxic Granulation Not Reportable 11/24/21 02:37 Toxic Vacuolation Not Reportable 11/24/21 02:37 Dohle Bodies Not Reportable 11/24/21 02:37 Pelger-Huet Anomaly Not Reportable 11/24/21 02:37 Jasmeet Rods Not Reportable 11/24/21 02:37 Platelet Estimate Consistent w auto 11/24/21 02:37 Clumped Platelets Not Reportable 11/24/21 02:37 Plt Clumps, EDTA Not Reportable 11/24/21 02:37 Large Platelets Not Reportable 11/24/21 02:37 Giant Platelets Not Reportable 11/24/21 02:37 Platelet Satelliting Not Reportable 11/24/21 02:37 Plt Morphology Comment Not Reportable 11/24/21 02:37 RBC Morphology Not Reportable 11/24/21 02:37 Dimorphic RBCs Not Reportable 11/24/21 02:37 Polychromasia Not Reportable 11/24/21 02:37 Hypochromasia Not Reportable 11/24/21 02:37 Poikilocytosis Not Reportable 11/24/21 02:37 Anisocytosis 1+ 11/24/21 02:37 Microcytosis Not Reportable 11/24/21 02:37 Macrocytosis Not Reportable 11/24/21 02:37 Spherocytes Not Reportable 11/24/21 02:37 Pappenheimer Bodies Not Reportable 11/24/21 02:37 Sickle Cells Not Reportable 11/24/21 02:37 Target Cells Not Reportable 11/24/21 02:37 Tear Drop Cells Not Reportable 11/24/21 02:37 Ovalocytes Not Reportable 11/24/21 02:37 Helmet Cells Not Reportable 11/24/21 02:37 [place]fe Bodies Not Reportable 11/24/21 02:37 [place] Rings Not Reportable 11/24/21 02:37 Lencho Cells Not Reportable 11/24/21 02:37 Bite Cells Not Reportable 11/24/21 02:37 Crenated Cell Not Reportable 11/24/21 02:37 Elliptocytes Not Reportable 11/24/21 02:37 Acanthocytes (Spur) Not Reportable 11/24/21 02:37 Rouleaux Not Reportable 11/24/21 02:37 Hemoglobin C Crystals Not Reportable 11/24/21 02:37 Schistocytes Not Reportable 11/24/21 02:37 Malaria parasites Not Reportable 11/24/21 02:37 Christopher Bodies Not Reportable 11/24/21 02:37 Hem Pathologist Commnt No 11/24/21 02:37 PT 15.9 Sec. (12.2-14.9) H 11/24/21 03:19 INR 1.14 (0.87-1.13) H 11/24/21 03:19 Sodium 138 mmol/L (137-145) 11/24/21 03:19 Potassium 3.8 mmol/L (3.6-5.0) 11/24/21 03:19 Chloride 95.8 mmol/L (98-107) L 11/24/21 03:19 Carbon Dioxide 20 mmol/L (22-30) L 11/24/21 03:19 Anion Gap 26 mmol/L 11/24/21 03:19 BUN 30 mg/dL (9-20) H 11/24/21 03:19 Creatinine 4.6 mg/dL (0.8-1.3) H 11/24/21 03:19 Estimated GFR 12 ml/min 11/24/21 03:19 BUN/Creatinine Ratio 7 % 11/24/21 03:19 Glucose 81 mg/dL (75-100) 11/24/21 03:19 POC Glucose 84 mg/dL (70-105) 11/24/21 12:00 Lactic Acid 1.30 mmol/L (0.7-2.0) 11/24/21 04:38 Calcium 9.4 mg/dL (8.4-10.2) 11/24/21 03:19 Total Bilirubin 2.50 mg/dL (0.1-1.2) H 11/24/21 03:19 AST 330 units/L (5-40) H 11/24/21 03:19 ALT 324 units/L (7-56) H 11/24/21 03:19 Alkaline Phosphatase 170 units/L (35-129) H 11/24/21 03:19 Ammonia 31.0 umol/L (25-60) 11/24/21 04:38 Total Creatine Kinase 67 units/L (55-170) 11/24/21 15:09 CK-MB (CK-2) 3.0 ng/mL (0.0-4.0) 11/24/21 15:09 CK-MB (CK-2) Rel Index 4.4 (0-4) H 11/24/21 15:09 Troponin T 0.576 ng/mL (0.00-0.029) H* 11/24/21 15:09 Total Protein 5.6 g/dL (6.3-8.2) L 11/24/21 03:19 Albumin 3.5 g/dL (3.9-5) L 11/24/21 03:19 Albumin/Globulin Ratio 1.7 % 11/24/21 03:19 Triglycerides 215 mg/dL (2-149) H 11/24/21 03:19 Cholesterol 138 mg/dL (50-199) 11/24/21 03:19 LDL Cholesterol Direct 53 mg/dL (50-130) 11/24/21 03:19 HDL Cholesterol 22 mg/dL (40-59) L 11/24/21 03:19 Cholesterol/HDL Ratio 6.27 % 11/24/21 03:19 Microbiology: Microbiology 11/24/21 02:37 Peripheral/Venous Blood Culture - Preliminary Culture in Progress 11/24/21 03:19 Peripheral/Venous Blood Culture - Preliminary Culture in Progress Active Medications - Current Medications Current Medications: Generic Name Dose Route Start Last Admin Trade Name Freq PRN Reason Stop Dose Admin Acetaminophen 650 mg 11/23/21 23:05 Acetaminophen 325 Mg Tab PO Q4H PRN Pain MILD(1-3)/Fever >100.5/HOLLOWAY Albuterol 2.5 mg 11/23/21 23:05 Albuterol 2.5 Mg/3 Ml Nebu IH Q4HRT PRN Shortness Of Breath Albuterol/Ipratropium 1 ampul 11/24/21 02:00 11/24/21 10:10 Ipratropium/Albuterol Sulfate 3 Ml Ampul.Neb IH Not Given Q6HRT HUGH Aspirin 81 mg 11/24/21 10:00 11/24/21 09:21 Aspirin 81 Mg Tab Chew PO 81 mg QDAY HUGH Administration Famotidine 20 mg 11/24/21 10:00 11/24/21 09:21 Famotidine 20 Mg Tab PO 20 mg BID HUGH Administration Ceftriaxone Sodium 2 gm in 100 mls @ 200 mls/hr 11/24/21 02:00 11/24/21 02:55 Rocephin/Ns 2 Gm/100 Ml IV 200 mls/hr Q24H HUGH Administration Protocol Azithromycin 500 mg in 250 mls @ 250 mls/hr 11/24/21 05:00 11/24/21 05:15 Zithromax/Ns IV 11/30/21 23:59 250 mls/hr Q24H HUGH Administration Lactulose 200 gm 11/24/21 22:00 Lactulose Enema 1000 Ml ME BID HUGH Morphine Sulfate 2 mg 11/23/21 23:05 11/24/21 03:07 Morphine 2 Mg/1 Ml Inj IV 2 mg Q4H PRN Administration Pain, Moderate (4-6) Morphine Sulfate 4 mg 11/23/21 23:05 11/24/21 12:56 Morphine 4 Mg/1 Ml Inj IV 4 mg Q4H PRN Administration Pain , Severe (7-10) Ondansetron HCl 4 mg 11/23/21 23:05 Ondansetron 4 Mg/2 Ml Inj IV Q8H PRN Nausea And Vomiting Sodium Chloride 10 ml 11/24/21 10:00 11/24/21 09:21 Sodium Chloride 0.9% 10 Ml Flush Syringe IV 10 ml BID HUGH Administration Sodium Chloride 10 ml 11/23/21 23:05 Sodium Chloride 0.9% 10 Ml Flush Syringe IV PRN PRN LINE FLUSH Nutrition/Malnutrition Assess - Dietary Evaluation Nutrition/Malnutrition Findings: Nutrition Notes Start: 11/24/21 10:38 Freq: Status: Active Protocol: Document 11/24/21 10:38 TW (Rec: 11/24/21 10:50 TW [id number]) Nutrition Notes Need for Assessment generated from: lead applier,MST Initial or Follow up Assessment Current Diagnosis Hypertension Other Pertinent Diagnosis ESRD, Cirrhosis, lower left lube pneumonia, liver failure Current Diet Cardiac Labs/Tests BUN 30 Pertinent Medications Reviewed Height 5 ft 10 in Weight 76.6 kg [place] Body Weight (kg) 75.45 BMI 24.2 Weight Status Appropriate Subjective/Other Information Pt screened for MST, Skin risk assessment and hx of difficulty chewing. Pt reports eating poorly due to decreased appetite. Joseluis score is 12. reports usual body weight is about 80 pounds for the last 2 years since health started declining . Appetite has also decreased, offered solid foods and started incorporating more liquids/soups. Burn Absent Trauma Absent Difficulty In Chewing Minimum of two criteria No #1 Nutrition Diagnosis Inadequate oral intake Etiology difficulty chewing As Evidenced by Signs and Symptoms dental caries, missing teeth, and Pt reports eating poorly due to decreased appetite Is patient on ventilator? No Is Patient Ambulatory and/or Out of Bed No REE-([facility]-confined to bed) 4806.166 Calculation Used for Recommendations [facility] Additional Notes Protein:77-92 g/day (1-1.2g/kg /day) Fluid: 1 ml/kcal Nutrition Intervention Change Diet Order: Continue current diet Goal #1 PO intake advances to meet 75% nutrition needs Follow-Up By: 11/25/21 Additional Comments F/U for intakes
[2021-11-24] MEDS ORDERED: LACTULOSE 20 GM/30 ML ORAL LIQD PO SCH (18:00)
[2021-11-24 21:43] LABS: Creatine Kinase MB 2.9 ng/mL (0.0-4.0)
[2021-11-24] MEDS ORDERED: PRAVASTATIN 40 MG TAB PO SCH (22:00)
[2021-11-24] MEDS ORDERED: LACTULOSE ENEMA 1000 ML PR SCH (22:00)
[2021-11-25] MEDS: IPRATROPIUM/ALBUTEROL SULFATE 3 ML AMPUL.NEB IH SCH ×4 (01:13→10:33)
[2021-11-25] MEDS: cefTRIAXone/NS 2 GM/100 ML 2 GM/100 ML BAG IV SCH (01:15)
[2021-11-25 04:56] LABS: Hematocrit 33.5 % (35.5-45.6); Mean Corpuscular HGB Conc 33 % (32-34); Mean Corpuscular Volume 91 fl (84-94); Platelet Count 112 K/mm3 (140-440); Red Blood Count 3.67 M/mm3 (3.65-5.03)
[2021-11-25 04:58] LABS: Red Cell Distribution Width 20.4 % (13.2-15.2)
[2021-11-25 05:03] LABS: INR 1.15 (0.87-1.13)
[2021-11-25 05:29] LABS: Albumin 3.1 g/dL (3.9-5); Calcium 9.5 mg/dL (8.4-10.2)
[2021-11-25] MEDS: AZITHROMYCIN/NS 500 MG/250 ML 500 MG/250 ML BAG IV SCH (06:17)
[2021-11-25] MEDS: MORPHINE 2 MG/1 ML INJ IV PRN (06:18)
--- NOTE | 2021-11-25 09:46 | Ultrasound Report ---
ULTRASOUND ABDOMEN, COMPLETE INDICATION: RUQ, r/o biliary dilatation. COMPARISON: No relevant prior imaging study available. FINDINGS: Pancreas: No significant abnormality. Abdominal Aorta: The proximal and mid aorta are unremarkable the distal aorta is obscured. IVC: No si gnificant abnormality. Liver: The liver measures 15.5 cm in length. There is perhaps subtle surface nodularity of the liver suggesting mild cirrhotic changes. No focal mass. Normal hepatopedal blood flow in the main portal v ein. Gallbladder: Multiple small shadowing stones are identified in the gallbladder. Gallbladder wall thic kness measures 4 mm. Bile ducts: No significant abnormality. Common bile duct measures 2 mm. Kidneys: Right: 12 cm in length. No significant abnormality. Left: 11 cm in length. No significan t abnormality. Spleen: There is mild splenomegaly measuring 13.5 cm. Free fluid: Small perihepatic and perisplenic ascites. Additional Findings: None. IMPRESSION: Mild cirrhotic changes in the liver, mild splenomegaly and small ascites is suspected. Cholelithiasis but no convincing evidence for acute cholecystitis. Signer Name: Hans Velazquez Jr, MD Signed: 11/25/2021 9:41 AM Workstation Name: [id number]
[2021-11-25] MEDS: ASPIRIN 81 MG TAB CHEW PO SCH (10:46)
[2021-11-25] MEDS: FAMOTIDINE 20 MG TAB PO SCH (10:47)
[2021-11-25] MEDS: FOLIC ACID 1 MG TAB PO SCH (10:47)
[2021-11-25] MEDS: LACTULOSE 20 GM/30 ML ORAL LIQD PO SCH ×3 (10:47→23:06)
--- NOTE | 2021-11-25 12:03 | Progress Note ---
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 Per family patient was out of state in [place] last week during his birthday and felt sick and vomited and was at an urgent care in [place] then transferred over to a facility in [place] for hemodialysis. Per granddaughter patient received dialysis on 10/20 and 10/22. After his treatment on 10/22 patient had altered mental status. Per granddaughter patient was being treated with nafcillin which was changed to Zosyn after blood cultures grew staph and patient also was noted to have pleural effusions. Per documentation patient was started on Levophed for septic shock with lactic acidosis. Patient was admitted to the hospital service with septic shock, pneumonia and ESRD with consults to nephrology, CCM, GI and cardiology. Hospital course to date: 11/24 patient started on lactulose and rifaximin. Due to her inadequate oral intake patient started on Nepro. Echocardiogram completed today. We will also obtain a right upper quadrant ultrasound to rule out biliary duct dilation. 11/25: Remain encephalopathic. RUQ ultrasound demonstrates mild cirrhotic changes with mild splenomegaly and small ascites. Cholelithiasis observed in study however no evidence of cholecystitis. Will get hemodialysis today. Continue therapy with lactulose. Added solumedrol IV. Would consider rifaximin but will follow GI direction regarding admin. 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 Neuro: Acute metabolic encephalopathy. possible Hepatic encephalopathy, current EtOH abuse -Reorientation as needed -Maintain sleep-wake cycle -As needed analgesia -Per family patient's mental status is much improved -Lactulose MS -Ammonia 31 Cardiac: Elevated troponin, h/o HTN, CAD with CABG x3 -Cardiology consulted, appreciate recommendations -Blood pressure monitoring per protocol -Patient was on vasopressor support at OSH but currently not needing any -Echocardiogram from [place] reveals LVEF 35 to 40% Respiratory: Current nicotine abuse -CCM consulted, appreciate recommendations -Currently on room air -SPO2 monitoring -Pulmonary hygiene GI: Moderate protein calorie malnutrition, transaminitis, h/o EtOH cirrhosis, alcoholic hepatitis, cirrhosis -GI consulted, appreciate recommendations - MELD-Na: 21, 7-10% est mortality. - Bili: 1.9, AST: 175, ALT: 22, ALP: 142, Alb: 3.1 -Per family patient has been evaluated by [facility] not a candidate for transplant due to active drinking hx. -Patient takes MS lactulose, would consider rifaximin -added solumedrol -PPI -Cardiac, consistent carbohydrate renal diet -Nutrition supplementation -BR: Lactulose MS -Abd US: demonstrates mild cirrhotic changes with mild splenomegaly and small ascites. Cholelithiasis observed in study however no evidence of cholecystitis -Trend LFTs, hold potential hepatotoxins (apap, statins) : ESRD on HD -Nephrology consulted, appreciate recommendations -Monitor intake and output -Outpatient Thursday -HD per nephrology -Renally dose medications -Avoid nephrotoxic medications -Trend BMP ID: r/o Sepsis -Per family patient was being treated for right lower lobe pneumonia and sepsis at OSH and received a total of 7 days of antibiotics -CXR shows cardiomegaly with mild bilateral cardiopulmonary edema and small pl eural effusions -Antibiotic therapy with cefepime and vancomycin -Given no leukocytosis, afebrile nature and no clearly identifiable source of infection with likely 7 days of abx therapy at OSH (staph bacteremia treated with nafcillin and Zosyn at OSH per family), will stop cefepime and vancomycin -Restart antibiotic therapy if needed -P.o. rifaximin -f/u blood culture -Monitor WBC and temperature curve Endo: h/o DM -Avoid hypoglycemia -SSI -Accu-Cheks q. 6 Heme: Elevated INR, AOCD -Trend CBC -Transfuse hemoglobin less than 7 -SCDs to BLE while in bed The high probability of a clinically significant, sudden or life threatening deterioration of the [multi] system(s) required my full and direct attention, intervention and personal management. The aggregate critical care time was [60] minutes. This time is in addition to time spent performing reported procedures but includes the following: [x] Data Review and interpretation [x] Patient assessment and monitoring of vital signs [x] Documentation [x] Medication orders and management Disposition Plan: imcu Total Time Spent with Patient (Minutes): 60 History Interval history: Patient remains encephalopathic. Spoke to son at bedside. Patient had apparently been hospitalized in [facility] approximately 1.5 weeks ago. Facility was too small to handle patient care so he was airlifted to a facility in [place]. Patient had been treated for pneumonia in [place] as well as given dialysis treatments. He demonstrated some moderate improvement but did not have complete resolution of symptoms. Patient family subsequently drove him down to [place]. They are residents of [place] however patient family opted to admit patient at [facility]. Per son, patient has an extensive drinking history. He had only recently been told by physicians at the hospital in [place] the patient has liver disease. Patient has been on hemodialysis for approximately 1 year now. He is tolerating hemodialysis well and has been compliant with this. The son did note that the patient prior to being hospitalized was drinking extensively with family [place]. Prior to this he had been drinking frequently per the son. Hospitalist Physical - Physical exam Narrative exam: General appearance: Present: no acute distress, cachectic, other (Chronically ill-appearing) - EENT Eyes: Present: PERRL, EOM intact ENT: clear oral mucosa, dentition normal - Neck Neck: Present: normal ROM - Respiratory Respiratory effort: normal Respiratory: bilateral: diminished - Cardiovascular Rhythm: regular Heart Sounds: Present: S1 & S2. Absent: systolic murmur, diastolic murmur - Extremities Extremities: no ischemia, pulses intact, pulses symmetrical, No edema, normal temperature, normal color Peripheral Pulses: within normal limits - Abdominal General gastrointestinal: soft, non-tender, non-distended, normal bowel sounds - Integumentary Integumentary: Present: warm, dry - Psychiatric Psychiatric: cooperative - Neurologic Neurologic: CNII-XII intact, no focal deficits, moves all extremities - Allied Health Allied health notes reviewed: nursing - Constitutional Vitals: Temp Pulse Resp BP Pulse Ox 98.2 F 103 H 10 L 139/72 99 11/25/21 07:19 11/25/21 11:00 11/25/21 11:00 11/25/21 11:00 11/25/21 11:00 General appearance: Present: no acute distress, cachectic, other (Chronically ill-appearing) HEART Score - HEART Score Troponin: Troponin T 0.579 ng/mL (0.00-0.029) H* 11/24/21 20:19 Results - Labs CBC & Chem 7: 11/25/21 04:23 11/25/21 04:23 Labs: Laboratory Last Values WBC 7.8 K/mm3 (4.5-11.0) 11/25/21 04:23 RBC 3.67 M/mm3 (3.65-5.03) 11/25/21 04:23 Hgb 11.0 gm/dl (11.8-15.2) L 11/25/21 04:23 Hct 33.5 % (35.5-45.6) L D 11/25/21 04:23 MCV 91 fl (84-94) 11/25/21 04:23 MCH 30 pg (28-32) 11/25/21 04:23 MCHC 33 % (32-34) 11/25/21 04:23 RDW 20.4 % (13.2-15.2) H 11/25/21 04:23 Plt Count 112 K/mm3 (140-440) L 11/25/21 04:23 Add Manual Diff Complete 11/24/21 02:37 Total Counted 100 11/24/21 02:37 Seg Neuts % (Manual) 80.0 % (40.0-70.0) H 11/24/21 02:37 Band Neutrophils % 0 % 11/24/21 02:37 Lymphocytes % (Manual) 9.0 % (13.4-35.0) L 11/24/21 02:37 Reactive Lymphs % (Man) 1.0 % 11/24/21 02:37 Monocytes % (Manual) 10.0 % (0.0-7.3) H 11/24/21 02:37 Eosinophils % (Manual) 0 % (0.0-4.3) 11/24/21 02:37 Basophils % (Manual) 0 % (0.0-1.8) 11/24/21 02:37 Metamyelocytes % 0 % 11/24/21 02:37 Myelocytes % 0 % 11/24/21 02:37 Promyelocytes % 0 % 11/24/21 02:37 Blast Cells % 0 % 11/24/21 02:37 Nucleated RBC % Not Reportable 11/24/21 02:37 Seg Neutrophils # Man 7.2 K/mm3 (1.8-7.7) 11/24/21 02:37 Band Neutrophils # 0.0 K/mm3 11/24/21 02:37 Lymphocytes # (Manual) 0.8 K/mm3 (1.2-5.4) L 11/24/21 02:37 Abs React Lymphs (Man) 0.1 K/mm3 11/24/21 02:37 Monocytes # (Manual) 0.9 K/mm3 (0.0-0.8) H 11/24/21 02:37 Eosinophils # (Manual) 0.0 K/mm3 (0.0-0.4) 11/24/21 02:37 Basophils # (Manual) 0.0 K/mm3 (0.0-0.1) 11/24/21 02:37 Metamyelocytes # 0.0 K/mm3 11/24/21 02:37 Myelocytes # 0.0 K/mm3 11/24/21 02:37 Promyelocytes # 0.0 K/mm3 11/24/21 02:37 Blast Cells # 0.0 K/mm3 11/24/21 02:37 WBC Morphology Not Reportable 11/24/21 02:37 Hypersegmented Neuts Not Reportable 11/24/21 02:37 Hyposegmented Neuts Not Reportable 11/24/21 02:37 Hypogranular Neuts Not Reportable 11/24/21 02:37 Smudge Cells Not Reportable 11/24/21 02:37 Toxic Granulation Not Reportable 11/24/21 02:37 Toxic Vacuolation Not Reportable 11/24/21 02:37 Dohle Bodies Not Reportable 11/24/21 02:37 Pelger-Huet Anomaly Not Reportable 11/24/21 02:37 Jasmeet Rods Not Reportable 11/24/21 02:37 Platelet Estimate Consistent w auto 11/24/21 02:37 Clumped Platelets Not Reportable 11/24/21 02:37 Plt Clumps, EDTA Not Reportable 11/24/21 02:37 Large Platelets Not Reportable 11/24/21 02:37 Giant Platelets Not Reportable 11/24/21 02:37 Platelet Satelliting Not Reportable 11/24/21 02:37 Plt Morphology Comment Not Reportable 11/24/21 02:37 RBC Morphology Not Reportable 11/24/21 02:37 Dimorphic RBCs Not Reportable 11/24/21 02:37 Polychromasia Not Reportable 11/24/21 02:37 Hypochromasia Not Reportable 11/24/21 02:37 Poikilocytosis Not Reportable 11/24/21 02:37 Anisocytosis 1+ 11/24/21 02:37 Microcytosis Not Reportable 11/24/21 02:37 Macrocytosis Not Reportable 11/24/21 02:37 Spherocytes Not Reportable 11/24/21 02:37 Pappenheimer Bodies Not Reportable 11/24/21 02:37 Sickle Cells Not Reportable 11/24/21 02:37 Target Cells Not Reportable 11/24/21 02:37 Tear Drop Cells Not Reportable 11/24/21 02:37 Ovalocytes Not Reportable 11/24/21 02:37 Helmet Cells Not Reportable 11/24/21 02:37 [employer] Bodies Not Reportable 11/24/21 02:37 [place] Rings Not Reportable 11/24/21 02:37 [place] Cells Not Reportable 11/24/21 02:37 Bite Cells Not Reportable 11/24/21 02:37 Crenated Cell Not Reportable 11/24/21 02:37 Elliptocytes Not Reportable 11/24/21 02:37 Acanthocytes (Spur) Not Reportable 11/24/21 02:37 Rouleaux Not Reportable 11/24/21 02:37 Hemoglobin C Crystals Not Reportable 11/24/21 02:37 Schistocytes Not Reportable 11/24/21 02:37 Malaria parasites Not Reportable 11/24/21 02:37 Christopher Bodies Not Reportable 11/24/21 02:37 Hem Pathologist Commnt No 11/24/21 02:37 PT 16.0 Sec. (12.2-14.9) H 11/25/21 04:23 INR 1.15 (0.87-1.13) H 11/25/21 04:23 Sodium 142 mmol/L (137-145) 11/25/21 04:23 Potassium 4.0 mmol/L (3.6-5.0) 11/25/21 04:23 Chloride 100.1 mmol/L (98-107) 11/25/21 04:23 Carbon Dioxide 21 mmol/L (22-30) L 11/25/21 04:23 Anion Gap 25 mmol/L 11/25/21 04:23 BUN 38 mg/dL (9-20) H 11/25/21 04:23 Creatinine 5.3 mg/dL (0.8-1.3) H 11/25/21 04:23 Estimated GFR 11 ml/min 11/25/21 04:23 BUN/Creatinine Ratio 7 % 11/25/21 04:23 Glucose 95 mg/dL (75-100) 11/25/21 04:23 POC Glucose 76 mg/dL (70-105) 11/24/21 18:25 Lactic Acid 1.30 mmol/L (0.7-2.0) 11/24/21 04:38 Calcium 9.5 mg/dL (8.4-10.2) 11/25/21 04:23 Total Bilirubin 1.90 mg/dL (0.1-1.2) H 11/25/21 04:23 AST 175 units/L (5-40) H 11/25/21 04:23 ALT 222 units/L (7-56) H 11/25/21 04:23 Alkaline Phosphatase 142 units/L (35-129) H 11/25/21 04:23 Ammonia 31.0 umol/L (25-60) 11/24/21 04:38 Total Creatine Kinase 77 units/L (55-170) 11/24/21 20:19 CK-MB (CK-2) 2.9 ng/mL (0.0-4.0) 11/24/21 20:19 CK-MB (CK-2) Rel Index 3.7 (0-4) 11/24/21 20:19 Troponin T 0.579 ng/mL (0.00-0.029) H* 11/24/21 20:19 Total Protein 5.2 g/dL (6.3-8.2) L 11/25/21 04:23 Albumin 3.1 g/dL (3.9-5) L 11/25/21 04:23 Albumin/Globulin Ratio 1.5 % 11/25/21 04:23 Triglycerides 215 mg/dL (2-149) H 11/24/21 03:19 Cholesterol 138 mg/dL (50-199) 11/24/21 03:19 LDL Cholesterol Direct 53 mg/dL (50-130) 11/24/21 03:19 HDL Cholesterol 22 mg/dL (40-59) L 11/24/21 03:19 Cholesterol/HDL Ratio 6.27 % 11/24/21 03:19 Microbiology: Microbiology 11/24/21 02:37 Peripheral/Venous Blood Culture - Preliminary NO GROWTH AFTER 24 HOURS 11/24/21 03:19 Peripheral/Venous Blood Culture - Preliminary NO GROWTH AFTER 24 HOURS Active Medications - Current Medications Current Medications: Generic Name Dose Route Start Last Admin Trade Name Freq PRN Reason Stop Dose Admin Acetaminophen 650 mg 11/23/21 23:05 Acetaminophen 325 Mg Tab PO Q4H PRN Pain MILD(1-3)/Fever >100.5/HOLLOWAY Albuterol 2.5 mg 11/23/21 23:05 Albuterol 2.5 Mg/3 Ml Nebu IH Q4HRT PRN Shortness Of Breath Aspirin 81 mg 11/24/21 10:00 11/25/21 10:46 Aspirin 81 Mg Tab Chew PO 81 mg QDAY HUGH Administration Famotidine 20 mg 11/26/21 10:00 Famotidine 20 Mg Tab PO DAILY HUGH Folic Acid 1 mg 11/25/21 10:00 11/25/21 10:47 Folic Acid 1 Mg Tab PO 1 mg QDAY HUGH Administration Lactulose 20 gm 11/25/21 08:00 11/25/21 10:47 Lactulose 20 Gm/30 Ml Oral Liqd PO 20 gm Q6H HUGH Administration Ondansetron HCl 4 mg 11/23/21 23:05 Ondansetron 4 Mg/2 Ml Inj IV Q8H PRN Nausea And Vomiting Pravastatin Sodium 40 mg 11/24/21 22:00 11/24/21 23:00 Pravastatin 40 Mg Tab PO 40 mg QHS HUGH Administration Sodium Chloride 10 ml 11/24/21 10:00 11/25/21 10:47 Sodium Chloride 0.9% 10 Ml Flush Syringe IV 10 ml BID HUGH Administration Sodium Chloride 10 ml 11/23/21 23:05 Sodium Chloride 0.9% 10 Ml Flush Syringe IV PRN PRN LINE FLUSH Nutrition/Malnutrition Assess - Dietary Evaluation Nutrition/Malnutrition Findings: Nutrition Notes Start: 11/24/21 10:38 Freq: Status: Active Protocol: Document 11/24/21 10:38 TW (Rec: 11/24/21 10:50 TW [id number]) Nutrition Notes Need for Assessment generated from: bereavement coordinator,MST Initial or Follow up Assessment Current Diagnosis Hypertension Other Pertinent Diagnosis ESRD, Cirrhosis, lower left lube pneumonia, liver failure Current Diet Cardiac Labs/Tests BUN 30 Pertinent Medications Reviewed Height 5 ft 10 in Weight 76.6 kg [place] Body Weight (kg) 75.45 BMI 24.2 Weight Status Appropriate Subjective/Other Information Pt screened for MST, Skin risk assessment and hx of difficulty chewing. Pt reports eating poorly due to decreased appetite. Joseluis score is 12. reports usual body weight is about 80 pounds for the last 2 years since health started declining . Appetite has also decreased, offered solid foods and started incorporating more liquids/soups. Burn Absent Trauma Absent Difficulty In Chewing Minimum of two criteria No #1 Nutrition Diagnosis Inadequate oral intake Etiology difficulty chewing As Evidenced by Signs and Symptoms dental caries, missing teeth, and Pt reports eating poorly due to decreased appetite Is patient on ventilator? No Is Patient Ambulatory and/or Out of Bed No REE-(Landers-St. Jeor-confined to bed) 7215.097 Calculation Used for Recommendations Landers-St Jeor Additional Notes Protein:77-92 g/day (1-1.2g/kg /day) Fluid: 1 ml/kcal Nutrition Intervention Change Diet Order: Continue current diet Goal #1 PO intake advances to meet 75% nutrition needs Follow-Up By: 11/25/21 Additional Comments F/U for intakes
--- NOTE | 2021-11-25 12:14 | Progress Note ---
Assessment and Plan Assessment: Sepsis Pneumonia End-stage renal disease on hemodialysis Cirrhosis Metabolic encephalopathy Transaminitis Elevated troponin Plan: -Hemodialysis tomorrow for UF and clearance -Son consented for patient to receive hemodialysis -No acute HD indication today -Fluid restriction of 1 liter per day -Renally dose all medications -Assess dialysis needs daily -On hemodialysis TTS outpatiently -Plan of care reviewed by Dr. Jay Subjective Date of service: 11/25/21 Principal diagnosis: ESRD Interval history: Patient seen lying in bed. He is confused. Spoke to his son [place] over the phone who consented for patient to receive hemodialysis. Objective - Vital Signs Vital signs: Vital Signs - 12hr 11/25/21 11/25/21 11/25/21 01:00 02:00 03:00 Temperature Pulse Rate 105 H 102 H 96 H Pulse Rate [ From Monitor] Respiratory 12 15 9 L Rate Blood Pressure 132/72 132/68 125/65 O2 Sat by Pulse 99 99 99 Oximetry 11/25/21 11/25/21 11/25/21 03:35 04:00 05:00 Temperature Pulse Rate 98 H 101 H 94 H Pulse Rate [ 101 H From Monitor] Respiratory 16 11 L Rate Blood Pressure 136/68 123/61 O2 Sat by Pulse 96 100 Oximetry 11/25/21 11/25/21 11/25/21 06:00 06:18 06:48 Temperature Pulse Rate 97 H Pulse Rate [ From Monitor] Respiratory 13 12 10 L Rate Blood Pressure 145/73 O2 Sat by Pulse 99 Oximetry 11/25/21 11/25/21 11/25/21 07:00 07:19 08:00 Temperature 98.2 F Pulse Rate 97 H 104 H Pulse Rate [ 104 H From Monitor] Respiratory 10 L 16 Rate Blood Pressure 123/61 145/73 O2 Sat by Pulse 96 96 Oximetry 11/25/21 11/25/21 11/25/21 09:00 10:00 11:00 Temperature Pulse Rate 108 H 111 H 103 H Pulse Rate [ From Monitor] Respiratory 13 18 10 L Rate Blood Pressure 143/65 132/67 139/72 O2 Sat by Pulse 97 99 99 Oximetry - General Appearance General appearance: other (Confused) EENT: ATNC Neck: no JVD, supple Respiratory: Present: Decreased Breath Sounds Cardiology: S1S2 Gastrointestinal: normoactive bowel sounds Integumentary: warm and dry Neurologic: other (Confused) Musculoskeletal: other (No edema) - Lab 11/25/21 04:23 11/25/21 04:23 Most recent lab results Calcium 9.5 mg/dL (8.4-10.2) 11/25/21 04:23 Medications & Allergies - Medications Allergies/Adverse Reactions: Allergies No Known Allergies Allergy (Verified 11/24/21 02:09) Home Medications: Home Medications Medication Instructions Recorded Confirmed Last Taken Type ALBUTEROL NEB's [Proventil 0.083% 1 puff PO Q40MIN PRN 11/24/21 11/24/21 Unknown History NEBS] Aspirin [Aspirin BABY CHEW TAB] 81 mg PO QDAY 11/24/21 11/24/21 Unknown History Carafate 1 gm PO ACHS 11/24/21 11/24/21 Unknown History Darbepoetin Hari in Polysorbat 60 mcg SQ QWEEK 11/24/21 11/24/21 Unknown History [Aranesp] Folic Acid [Folvite] 1 mg PO QDAY 11/24/21 11/24/21 Unknown History Furosemide [Lasix] 40 mg PO QDAY 11/24/21 11/24/21 Unknown History Loratadine [Allergy Relief] 10 mg PO QDAY 11/24/21 11/24/21 Unknown History Pantoprazole [Protonix] 40 mg PO BID 11/24/21 11/24/21 Unknown History Simvastatin 20 mg PO QHS 11/24/21 11/24/21 Unknown History allopurinoL [Zyloprim] 100 mg PO QDAY 11/24/21 11/24/21 Unknown History amLODIPine 5 mg PO QDAY 11/24/21 11/24/21 Unknown History Active Medications: Generic Name Dose Route Start Last Admin Trade Name Freq PRN Reason Stop Dose Admin Acetaminophen 650 mg 11/23/21 23:05 Acetaminophen 325 Mg Tab PO Q4H PRN Pain MILD(1-3)/Fever >100.5/HOLLOWAY Albuterol 2.5 mg 11/23/21 23:05 Albuterol 2.5 Mg/3 Ml Nebu IH Q4HRT PRN Shortness Of Breath Aspirin 81 mg 11/24/21 10:00 11/25/21 10:46 Aspirin 81 Mg Tab Chew PO 81 mg QDAY HUGH Administration Famotidine 20 mg 11/26/21 10:00 Famotidine 20 Mg Tab PO DAILY HUGH Folic Acid 1 mg 11/25/21 10:00 11/25/21 10:47 Folic Acid 1 Mg Tab PO 1 mg QDAY HUGH Administration Lactulose 20 gm 11/25/21 08:00 11/25/21 10:47 Lactulose 20 Gm/30 Ml Oral Liqd PO 20 gm Q6H HUGH Administration Ondansetron HCl 4 mg 11/23/21 23:05 Ondansetron 4 Mg/2 Ml Inj IV Q8H PRN Nausea And Vomiting Pravastatin Sodium 40 mg 11/24/21 22:00 11/24/21 23:00 Pravastatin 40 Mg Tab PO 40 mg QHS HUGH Administration Sodium Chloride 10 ml 11/24/21 10:00 11/25/21 10:47 Sodium Chloride 0.9% 10 Ml Flush Syringe IV 10 ml BID HUGH Administration Sodium Chloride 10 ml 11/23/21 23:05 Sodium Chloride 0.9% 10 Ml Flush Syringe IV PRN PRN LINE FLUSH
--- NOTE | 2021-11-25 13:41 | Progress Note ---
Assessment and Plan This is a 76 years old male with past medical history of end-stage renal disease on hemodialysis Thursday, , Thursday and cirrhosis was brought to the hospital from [place] because of sepsis and left lower lobe pneumonia. Most of the history is obtained from the chart patient initially presented to the [facility] on November 18 with complaint of nausea vomiting that began the night of. Around 9 PM. In [facility] patient is found to have pneumonia with effusion patient reportedly has a history of liver failure as well as CT there revealed cirrhosis. In the ER patient reportedly appeared to be dehydrated and was found to have in septic shock with mean arterial pressure of 54. He was admitted to the hospital was put on antibiotic and Levophed. Patient had leukocytosis of 14.66. Renal f unction indicative of end-stage renal disease, lactic at 10 downtrending to 5.5 . patient was admitted for septic shock, pneumonia and end-stage renal disease. According to the chart, patient has history of smoking. Patient still lethrgic and sleepy and unable to give any history. Patient sleeping, Not responding to verbal stimuli. Patient is on room air, O2 saturation running 97%. No acute respiratory distress. Patients ABGs on room air, PH 7.37, PCO2 42, PO2 74, HCO3 24 . O2 saturation 94 Patient afebrile. No leukocytosis. Blood pressure 130/88 , Pulse 107 , respirations 12. Chest xray done 11/23/21 reported Cardiomegaly with mild bilateral cardiopulmonary edema and small pleural effusions. Ultrasound of Abdomen 11/25/21 reported Mild cirrhotic changes in the liver, mild splenomegaly and small ascites is suspected. Cholelithiasis but no convincing evidence for acute cholecystitis. Patient is on albuterol inhaler, Famotidine, I/V solumedrol. Recommend DVT prophylaxis, at least SCDs Patients sister in law at bed side, explained to her patients respiratory status. I spent critical care time of 35 minutes, reviwing the chart, examine the patient, review ches xray and lab results and work up plan of treatment in this critically ill patient. - Patient Problems (1) Pulmonary edema Current Visit: Yes Status: Acute Plan to address problem: Recommend lasix. Management as per cardiology. (2) End-stage renal disease on hemodialysis Current Visit: Yes Status: Acute Plan to address problem: Management as per nephrology. (3) Cirrhosis Current Visit: Yes Status: Acute Plan to address problem: Management as per primary care and gastroenterology. (4) Elevated troponin Current Visit: Yes Status: Acute Plan to address problem: Management as per Cardiology. (5) Metabolic encephalopathy Current Visit: Yes Status: Acute Plan to address problem: Management as per primary care and neurology. (6) Pneumonia Current Visit: Yes Status: Acute Plan to address problem: Chest xray more of suggestive as pulmonary edema. In case underlying infection, Patient was empirically covered with ceftriaxone and Zithromax. (7) Sepsis Current Visit: Yes Status: Acute Plan to address problem: Patient was on ceftriaxone and Zithromax. Subjective Date of service: 11/25/21 Principal diagnosis: ESRD Interval history: This is a 76 years old male with past medical history of end-stage renal disease on hemodialysis Thursday, , Thursday and cirrhosis was brought to the hospital from [place] because of sepsis and left lower lobe pneumonia. Most of the history is obtained from the chart patient initially presented to the [facility] on November 18 with complaint of nausea vomiting that began the night of. Around 9 PM. In [facility] patient is found to have pneumonia with effusion patient reportedly has a history of liver failure as well as CT there revealed cirrhosis. In the ER patient reportedly appeared to be dehydrated and was found to have in septic shock with mean arterial pressure of 54. He was admitted to the hospital was put on antibiotic and Levophed. Patient had leukocytosis of 14.66. Renal function indicative of end-stage renal disease, lactic at 10 downtrending to 5.5 . patient was admitted for septic shock, pneumonia and end-stage renal disease. According to the chart, patient has history of smoking. Patient still lethrgic and sleepy and unable to give any history. Patient sleeping, Not responding to verbal stimuli. Patient is on room air, O2 saturation running 97%. No acute respiratory distress. Patients ABGs on room air, PH 7.37, PCO2 42, PO2 74, HCO3 24 . O2 saturation 94 Patient afebrile. No leukocytosis. Blood pressure 130/88 , Pulse 107 , respirations 12. Chest xray done 11/23/21 reported Cardiomegaly with mild bilateral car diopulmonary edema and small pleural effusions. Ultrasound of Abdomen 11/25/21 reported Mild cirrhotic changes in the liver, mild splenomegaly and small ascites is suspected. Cholelithiasis but no convincing evidence for acute cholecystitis. Patient is on albuterol inhaler, Famotidine, I/V solumedrol. Recommend DVT prophylaxis, at least SCDs. Patients sister in law at bed side, explained to her patients respiratory status. Objective Vital Signs - 12hr 11/25/21 11/25/21 11/25/21 02:00 03:00 03:35 Temperature Pulse Rate 102 H 96 H 98 H Pulse Rate [ From Monitor] Respiratory 15 9 L Rate Blood Pressure 132/68 125/65 O2 Sat by Pulse 99 99 Oximetry 11/25/21 11/25/21 11/25/21 04:00 05:00 06:00 Temperature Pulse Rate 101 H 94 H 97 H Pulse Rate [ 101 H From Monitor] Respiratory 16 11 L 13 Rate Blood Pressure 136/68 123/61 145/73 O2 Sat by Pulse 96 100 99 Oximetry 11/25/21 11/25/21 11/25/21 06:18 06:48 07:00 Temperature Pulse Rate 97 H Pulse Rate [ From Monitor] Respiratory 12 10 L 10 L Rate Blood Pressure 123/61 O2 Sat by Pulse 96 Oximetry 11/25/21 11/25/21 11/25/21 07:19 08:00 09:00 Temperature 98.2 F Pulse Rate 104 H 108 H Pulse Rate [ 104 H From Monitor] Respiratory 16 13 Rate Blood Pressure 145/73 143/65 O2 Sat by Pulse 96 97 Oximetry 11/25/21 11/25/21 10:00 11:00 Temperature Pulse Rate 111 H 103 H Pulse Rate [ From Monitor] Respiratory 18 10 L Rate Blood Pressure 132/67 139/72 O2 Sat by Pulse 99 99 Oximetry Constitutional: no acute distress, lethargic, asleep Eyes: icteric ENT: oropharynx moist Neck: supple, no JVD Effort: mildly labored Ascultation: Bilateral: rales Cardiovascular: regular rate and rhythm Gastrointestinal: hypoactive bowel sounds, soft, non-tender Integumentary: normal Extremities: no cyanosis, no edema Neurologic: unable to assess Psychiatric: other (Patient lethergic and sleepy.) CBC and BMP: 11/25/21 04:23 11/25/21 04:23 ABG, PT/INR, D-dimer: PT/INR, D-dimer PT 16.0 Sec. (12.2-14.9) H 11/25/21 04:23 INR 1.15 (0.87-1.13) H 11/25/21 04:23 Abnormal lab findings: Abnormal Labs 11/24/21 11/24/21 11/24/21 02:37 03:19 03:19 Hgb Hct MCV 95 H RDW 20.7 H Plt Count 133 L Seg Neuts % (Manual) 80.0 H Lymphocytes % (Manual) 9.0 L Monocytes % (Manual) 10.0 H Lymphocytes # (Manual) 0.8 L Monocytes # (Manual) 0.9 H PT 15.9 H INR 1.14 H Chloride 95.8 L Carbon Dioxide 20 L BUN 30 H Creatinine 4.6 H Total Bilirubin 2.50 H AST 330 H ALT 324 H Alkaline Phosphatase 170 H CK-MB (CK-2) Rel Index Troponin T Total Protein 5.6 L Albumin 3.5 L Triglycerides 215 H HDL Cholesterol 22 L 11/24/21 11/24/21 11/24/21 03:19 15:09 20:19 Hgb Hct MCV RDW Plt Count Seg Neuts % (Manual) Lymphocytes % (Manual) Monocytes % (Manual) Lymphocytes # (Manual) Monocytes # (Manual) PT INR Chloride Carbon Dioxide BUN Creatinine Total Bilirubin AST ALT Alkaline Phosphatase CK-MB (CK-2) Rel Index 4.2 H 4.4 H Troponin T 0.560 H* 0.576 H* 0.579 H* Total Protein Albumin Triglycerides HDL Cholesterol 11/25/21 11/25/21 11/25/21 04:23 04:23 04:23 Hgb 11.0 L Hct 33.5 L D MCV RDW 20.4 H Plt Count 112 L Seg Neuts % (Manual) Lymphocytes % (Manual) Monocytes % (Manual) Lymphocytes # (Manual) Monocytes # (Manual) PT 16.0 H INR 1.15 H Chloride Carbon Dioxide 21 L BUN 38 H Creatinine 5.3 H Total Bilirubin 1.90 H AST 175 H ALT 222 H Alkaline Phosphatase 142 H CK-MB (CK-2) Rel Index Troponin T Total Protein 5.2 L Albumin 3.1 L Triglycerides HDL Cholesterol Additional Studies: ULTRASOUND ABDOMEN, COMPLETE 11/25/21 INDICATION: RUQ, r/o biliary dilatation. COMPARISON: No relevant prior imaging study available. FINDINGS: Pancreas: No significant abnormality. Abdominal Aorta: The proximal and mid aorta are unremarkable the distal aorta is obscured. IVC: No significant abnormality. Liver: The liver measures 15.5 cm in length. There is perhaps subtle surface nodularity of the liver suggesting mild cirrhotic changes. No focal mass. Normal hepatopedal blood flow in the main portal vein. Gallbladder: Multiple small shadowing stones are identified in the gallbladder. Gallbladder wall thickness measures 4 mm. Bile ducts: No significant abnormality. Common bile duct measures 2 mm. Kidneys: Right: 12 cm in length. No significant abnormality. Left: 11 cm in length. No significant abnormality. Spleen: There is mild splenomegaly measuring 13.5 cm. Free fluid: Small perihepatic and perisplenic ascites. Additional Findings: None. IMPRESSION: Mild cirrhotic changes in the liver, mild splenomegaly and small ascites is suspected. Cholelithiasis but no convincing evidence for acute cholecystitis.
--- NOTE | 2021-11-25 14:03 | Progress Note ---
Assessment and Plan - Patient Problems (1) Right heart failure due to pulmonary hypertension Current Visit: Yes Status: Acute Plan to address problem: Echocardiogram shows RV systolic dysfunction with elevated RVSP. Patient tachycardic on examination. We will add low-dose beta-lexii. (2) Elevated troponin Current Visit: Yes Status: Acute Plan to address problem: Patient has no cardiac complaints, troponin elevation is likely nonspecific finding in the presence of end-stage renal failure. With regards to his history of coronary artery disease, we will recommend optimal guideline directed medical therapy. A twelve-lead EKG will be ordered at this time. A cardiogram shows normal LV systolic function. Subjective Principal diagnosis: ESRD Interval history: Patient sleeping in the bed. He denies any active chest pain shortness of breath. He is clinically stable. Elevated showed patient to be in sinus tachycardia Objective Vital Signs Temp Pulse Pulse Resp Resp BP Pulse Ox 11/25/21 11:00 103 H 10 L 139/72 99 11/25/21 10:00 111 H 18 132/67 99 11/25/21 09:00 108 H 13 143/65 97 11/25/21 08:00 104 H 104 H 16 145/73 96 11/25/21 07:19 98.2 F 11/25/21 07:00 97 H 10 L 123/61 96 11/25/21 06:48 10 L 11/25/21 06:18 12 11/25/21 06:00 97 H 13 145/73 99 11/25/21 05:00 94 H 11 L 123/61 100 11/25/21 04:00 101 H 101 H 16 136/68 96 11/25/21 03:35 98 H 11/25/21 03:00 96 H 9 L 125/65 99 11/25/21 02:00 102 H 15 132/68 99 11/25/21 01:00 105 H 12 132/72 99 11/25/21 00:00 101 H 9 L 177/84 96 11/24/21 23:50 110 H 11/24/21 23:30 13 11/24/21 23:00 114 H 114 H 15 16 177/84 99 11/24/21 22:00 111 H 17 164/79 98 11/24/21 21:18 98 11/24/21 21:00 111 H 16 167/81 99 11/24/21 20:00 107 H 15 158/85 98 11/24/21 19:30 114 H 11/24/21 19:00 121 H 18 180/102 95 11/24/21 18:10 121 H 19 180/102 97 11/24/21 18:00 118 H 22 187/92 97 11/24/21 17:30 116 H 14 187/92 99 11/24/21 17:00 98 H 14 162/72 99 11/24/21 16:30 103 H 15 158/74 99 11/24/21 16:00 97.4 F L 103 H 106 H 18 127/81 100 11/24/21 15:30 108 H 15 127/81 99 11/24/21 15:00 105 H 16 134/62 99 11/24/21 14:30 114 H 17 134/62 97 11/24/21 14:00 103 H 17 134/62 99 - Physical Examination General: No Apparent Distress HEENT: Positive: PERRL Neck: Positive: neck supple. Negative: JVD/HJR Cardiac: Positive: Reg Rate and Rhythm, S1/S2 (Tachycardia) Neuro: Positive: Grossly Intact, Weakness (Generalized lethargy) Abdomen: Positive: Soft Skin: Negative: Rash Extremities: Absent: edema - Labs and Meds Cardiac Enzymes 11/24/21 11/24/21 11/25/21 Range/Units 15:09 20:19 04:23 AST 175 H (5-40) units/L CK-MB (CK-2) 3.0 2.9 (0.0-4.0) ng/mL Coagulation 11/25/21 Range/Units 04:23 PT 16.0 H (12.2-14.9) Sec. INR 1.15 H (0.87-1.13) CBC 11/25/21 Range/Units 04:23 WBC 7.8 (4.5-11.0) K/mm3 RBC 3.67 (3.65-5.03) M/mm3 Hgb 11.0 L (11.8-15.2) gm/dl Hct 33.5 L D (35.5-45.6) % Plt Count 112 L (140-440) K/mm3 Comprehensive Metabolic Panel 11/25/21 Range/Units 04:23 Sodium 142 (137-145) mmol/L Potassium 4.0 (3.6-5.0) mmol/L Chloride 100.1 (98-107) mmol/L Carbon Dioxide 21 L (22-30) mmol/L BUN 38 H (9-20) mg/dL Creatinine 5.3 H (0.8-1.3) mg/dL Glucose 95 (75-100) mg/dL Calcium 9.5 (8.4-10.2) mg/dL AST 175 H (5-40) units/L ALT 222 H (7-56) units/L Alkaline Phosphatase 142 H (35-129) units/L Total Protein 5.2 L (6.3-8.2) g/dL Albumin 3.1 L (3.9-5) g/dL - Telemetry EKG Rhythm: Sinus Tachycardia
[2021-11-25] MEDS: methylPREDNISolone Sod Succinate 40 MG/1 ML INJ IV SCH (14:48)
[2021-11-25 16:53] LABS: ABG Base Excess -1.2 mmol/L (-2.0-3.0); ABG HCO3 23.9 mmol/L (20.0-26.0); ABG Methemoglobin 0.4 % (0.0-1.5); ABG Oxygen Saturation 96.7 % (95.0-99.0); ABG PCO2 42.1 mm Hg; ABG PH 7.373 pH Units (7.350-7.450); ABG PO2 73.9 mm Hg (80.0-90.0)
--- NOTE | 2021-11-25 18:08 | Gastroenterology Progress Note ---
Assessment and Plan 1. Hepatic encephalopathy - cont scheduled lactulose po if able to tolerate every 6 hours; if not taking po, will need lactulose enemas. will start xifaxin bid dosing. 2. Decompensated cirrhosis - etiology likely alcohol, discussed with pt's sister in law at bedside who confirmed etiology 3. ascites - small volume on imaging, on abx which would empirically treat sbp. Subjective Date of service: 11/25/21 Principal diagnosis: cirrhosis, AMS Interval history: still confused, but awakes and answers some very basic questions. good [id number] at bedside Objective - Exam Narrative Exam: Gen: + confused/altered CV: rrr abd: soft ,mod distention - Constitutional Vitals: Temp Pulse Resp BP Pulse Ox 98.4 F 103 H 15 156/88 99 11/25/21 16:00 11/25/21 17:00 11/25/21 17:00 11/25/21 17:00 11/25/21 17:00 - Labs CBC & Chem 7: 11/25/21 04:23 11/25/21 04:23 Labs: Laboratory Results - last 24 hr 11/24/21 11/24/21 11/25/21 18:25 20:19 04:23 WBC 7.8 RBC 3.67 Hgb 11.0 L Hct 33.5 L D MCV 91 MCH 30 MCHC 33 RDW 20.4 H Plt Count 112 L PT INR ABG pH ABG pCO2 ABG pO2 ABG HCO3 ABG O2 Saturation ABG O2 Content ABG Base Excess ABG Hemoglobin ABG Carboxyhemoglobin ABG Methemoglobin Oxyhemoglobin FiO2 Sodium Potassium Chloride Carbon Dioxide Anion Gap BUN Creatinine Estimated GFR BUN/Creatinine Ratio Glucose POC Glucose 76 Calcium Total Bilirubin AST ALT Alkaline Phosphatase Total Creatine Kinase 77 CK-MB (CK-2) 2.9 CK-MB (CK-2) Rel Index 3.7 Troponin T 0.579 H* Total Protein Albumin Albumin/Globulin Ratio 11/25/21 11/25/21 11/25/21 04:23 04:23 15:10 WBC RBC Hgb Hct MCV MCH MCHC RDW Plt Count PT 16.0 H INR 1.15 H ABG pH 7.373 ABG pCO2 42.1 ABG pO2 73.9 L ABG HCO3 23.9 ABG O2 Saturation 96.7 ABG O2 Content 10.6 ABG Base Excess -1.2 ABG Hemoglobin 7.9 L ABG Carboxyhemoglobin 2.2 ABG Methemoglobin 0.4 Oxyhemoglobin 94.2 L FiO2 21 Sodium 142 Potassium 4.0 Chloride 100.1 Carbon Dioxide 21 L Anion Gap 25 BUN 38 H Creatinine 5.3 H Estimated GFR 11 BUN/Creatinine Ratio 7 Glucose 95 POC Glucose Calcium 9.5 Total Bilirubin 1.90 H AST 175 H ALT 222 H Alkaline Phosphatase 142 H Total Creatine Kinase CK-MB (CK-2) CK-MB (CK-2) Rel Index Troponin T Total Protein 5.2 L Albumin 3.1 L Albumin/Globulin Ratio 1.5 11/25/21 16:21 WBC RBC Hgb Hct MCV MCH MCHC RDW Plt Count PT INR ABG pH ABG pCO2 ABG pO2 ABG HCO3 ABG O2 Saturation ABG O2 Content ABG Base Excess ABG Hemoglobin ABG Carboxyhemoglobin ABG Methemoglobin Oxyhemoglobin FiO2 Sodium Potassium Chloride Carbon Dioxide Anion Gap BUN Creatinine Estimated GFR BUN/Creatinine Ratio Glucose POC Glucose 92 Calcium Total Bilirubin AST ALT Alkaline Phosphatase Total Creatine Kinase CK-MB (CK-2) CK-MB (CK-2) Rel Index Troponin T Total Protein Albumin Albumin/Globulin Ratio
[2021-11-25] MEDS: RIFAXIMIN 550 MG TAB FEEDTUBE SCH ×2 (18:37→23:07)
[2021-11-25 22:26] LABS: Hepatitis B Surface Antigen Non-Reactive (Negative); Hepatitis C Virus Antibody Non-Reactive (NonReactive)
[2021-11-25] MEDS: METOPROLOL TARTRATE 25 MG TAB PO SCH (23:06)
[2021-11-26] MEDS: LACTULOSE 20 GM/30 ML ORAL LIQD PO SCH ×5 (02:50→22:00)
[2021-11-26 04:55] LABS: Hematocrit 36.9 % (35.5-45.6); Hemoglobin 11.8 gm/dl (11.8-15.2); Mean Corpuscular HGB Conc 32 % (32-34); Mean Corpuscular Volume 94 fl (84-94); Platelet Count 119 K/mm3 (140-440); Red Blood Count 3.93 M/mm3 (3.65-5.03)
[2021-11-26 05:00] LABS: Red Cell Distribution Width 20.6 % (13.2-15.2)
[2021-11-26 05:02] LABS: INR 1.15 (0.87-1.13)
[2021-11-26 05:15] LABS: Albumin 3.1 g/dL (3.9-5); Calcium 9.2 mg/dL (8.4-10.2)
[2021-11-26 06:19] LABS: Anisocytosis 1+; Band Neutrophils # (Manual) 0.2 K/mm3; Basophils % (Manual) 0 % (0.0-1.8); Eosinophils % (Manual) 0 % (0.0-4.3); Total Cells Counted 100
[2021-11-26 06:22] LABS: Platelet Estimate Consistent w Auto; Target Cells 1+
[2021-11-26] MEDS: methylPREDNISolone Sod Succinate 40 MG/1 ML INJ IV SCH (09:21)
[2021-11-26] MEDS: ASPIRIN 81 MG TAB CHEW PO SCH (09:21)
[2021-11-26] MEDS: FOLIC ACID 1 MG TAB PO SCH (09:21)
[2021-11-26] MEDS: RIFAXIMIN 550 MG TAB FEEDTUBE SCH ×2 (09:21→23:41)
[2021-11-26] MEDS: METOPROLOL TARTRATE 25 MG TAB PO SCH ×2 (09:21→22:00)
--- NOTE | 2021-11-26 09:21 | Progress Note ---
Assessment and Plan Sepsis Pneumonia End-stage renal disease on hemodialysis Cirrhosis Metabolic encephalopathy Transaminitis Elevated troponin Plan: -Hemodialysis today for UF and clearance -Son consented for patient to receive hemodialysis -No acute HD indication today -Fluid restriction of 1 liter per day -Renally dose all medications -Assess dialysis needs daily -On hemodialysis TTS outpatiently Subjective Date of service: 11/26/21 Principal diagnosis: ESRD Interval history: in IMCU, BP noted to be elevated Objective - Vital Signs Vital signs: Vital Signs - 12hr 11/25/21 11/25/21 11/25/21 22:00 22:41 23:00 Temperature Pulse Rate 115 H 98 H 93 H Pulse Rate [ From Monitor] Respiratory 13 9 L 10 L Rate Blood Pressure 162/84 134/89 134/89 O2 Sat by Pulse 99 100 100 Oximetry 11/26/21 11/26/21 11/26/21 00:00 01:00 02:00 Temperature 98.9 F Pulse Rate 97 H 94 H 89 Pulse Rate [ 97 H From Monitor] Respiratory 10 L 10 L 9 L Rate Blood Pressure 150/84 150/84 157/85 O2 Sat by Pulse 100 100 99 Oximetry 11/26/21 11/26/21 11/26/21 03:00 04:00 05:00 Temperature 97.2 F L Pulse Rate 98 H 97 H 100 H Pulse Rate [ 97 H From Monitor] Respiratory 12 10 L 11 L Rate Blood Pressure 157/85 156/88 156/88 O2 Sat by Pulse 100 100 100 Oximetry 11/26/21 11/26/21 06:00 07:28 Temperature 98.5 F Pulse Rate 104 H Pulse Rate [ From Monitor] Respiratory 11 L Rate Blood Pressure 156/88 O2 Sat by Pulse 100 Oximetry - Lab 11/26/21 04:28 11/26/21 04:28 Most recent lab results ABG pH 7.373 pH Units (7.350-7.450) 11/25/21 15:10 ABG pCO2 42.1 mm Hg 11/25/21 15:10 ABG pO2 73.9 mm Hg (80.0-90.0) L 11/25/21 15:10 ABG HCO3 23.9 mmol/L (20.0-26.0) 11/25/21 15:10 ABG O2 Saturation 96.7 % (95.0-99.0) 11/25/21 15:10 Calcium 9.2 mg/dL (8.4-10.2) 11/26/21 04:28 Phosphorus 6.10 mg/dL (2.5-4.5) H 11/25/21 19:58 Magnesium 2.10 mg/dL (1.7-2.3) 11/25/21 19:58 Medications & Allergies - Medications Allergies/Adverse Reactions: Allergies No Known Allergies Allergy (Verified 11/24/21 02:09) Home Medications: Home Medications Medication Instructions Recorded Confirmed Last Taken Type ALBUTEROL NEB's [Proventil 0.083% 1 puff PO Q40MIN PRN 11/24/21 11/24/21 Unknown History NEBS] Aspirin [Aspirin BABY CHEW TAB] 81 mg PO QDAY 11/24/21 11/24/21 Unknown History Carafate 1 gm PO ACHS 11/24/21 11/24/21 Unknown History Darbepoetin Hari in Polysorbat 60 mcg SQ QWEEK 11/24/21 11/24/21 Unknown History [Aranesp] Folic Acid [Folvite] 1 mg PO QDAY 11/24/21 11/24/21 Unknown History Furosemide [Lasix] 40 mg PO QDAY 11/24/21 11/24/21 Unknown History Loratadine [Allergy Relief] 10 mg PO QDAY 11/24/21 11/24/21 Unknown History Pantoprazole [Protonix] 40 mg PO BID 11/24/21 11/24/21 Unknown History Simvastatin 20 mg PO QHS 11/24/21 11/24/21 Unknown History allopurinoL [Zyloprim] 100 mg PO QDAY 11/24/21 11/24/21 Unknown History amLODIPine 5 mg PO QDAY 11/24/21 11/24/21 Unknown History Active Medications: Generic Name Dose Route Start Last Admin Trade Name Freq PRN Reason Stop Dose Admin Albuterol 2.5 mg 11/23/21 23:05 Albuterol 2.5 Mg/3 Ml Nebu IH Q4HRT PRN Shortness Of Breath Aspirin 81 mg 11/24/21 10:00 11/25/21 10:46 Aspirin 81 Mg Tab Chew PO 81 mg QDAY HUGH Administration Famotidine 20 mg 11/26/21 10:00 Famotidine 20 Mg Tab PO DAILY HUGH Folic Acid 1 mg 11/25/21 10:00 11/25/21 10:47 Folic Acid 1 Mg Tab PO 1 mg QDAY HUGH Administration Lactulose 20 gm 11/25/21 08:00 11/26/21 08:26 Lactulose 20 Gm/30 Ml Oral Liqd PO 20 gm Q6H HUGH Administration Methylprednisolone Sodium Succinate 40 mg 11/25/21 13:00 11/25/21 14:48 Methylprednisolone Sod Succinate 40 Mg/1 Ml Inj IV 40 mg Q24HR HUGH Administration Metoprolol Tartrate 25 mg 11/25/21 22:00 11/25/21 23:06 Metoprolol Tartrate 25 Mg Tab PO Not Given BID HUGH Ondansetron HCl 4 mg 11/23/21 23:05 Ondansetron 4 Mg/2 Ml Inj IV Q8H PRN Nausea And Vomiting Rifaximin 550 mg 11/25/21 14:00 11/25/21 23:07 Rifaximin 550 Mg Tab FEEDTUBE Not Given BID HUGH Sodium Chloride 10 ml 11/24/21 10:00 11/25/21 22:00 Sodium Chloride 0.9% 10 Ml Flush Syringe IV 10 ml BID HUGH Administration Sodium Chloride 10 ml 11/23/21 23:05 Sodium Chloride 0.9% 10 Ml Flush Syringe IV PRN PRN LINE FLUSH
[2021-11-26] MEDS: FAMOTIDINE 20 MG TAB PO SCH (09:22)
--- NOTE | 2021-11-26 11:47 | Progress Note ---
Assessment and Plan This is a 76 years old male with past medical history of end-stage renal disease on hemodialysis Thursday, , Thursday and cirrhosis was brought to the hospital from [place] because of sepsis and left lower lobe pneumonia. Most of the history is obtained from the chart patient initially presented to the [facility] on November 18 with complaint of nausea vomiting that began the night of. Around 9 PM. In [facility] patient is found to have pneumonia with effusion patient reportedly has a history of liver failure as well as CT there revealed cirrhosis. In the ER patient reportedly appeared to be dehydrated and was found to have in septic shock with mean arterial pressure of 54. He was admitted to the hospital was put on antibiotic and Levophed. Patient had leukocytosis of 14.66. Renal f unction indicative of end-stage renal disease, lactic at 10 downtrending to 5.5 . patient was admitted for septic shock, pneumonia and end-stage renal disease. According to the chart, patient has history of smoking. Patient sleeping, Lethergic, Not responding to verbal stimuli. Patient is on room air, O2 saturation running 99%. No acute respiratory distress. Patients ABGs on room air, PH 7.37, PCO2 42, PO2 74, HCO3 24 . O2 saturation 94 Patient afebrile. No leukocytosis. Blood pressure 168/96 , Pulse 92 , respirations 9. Chest xray done 11/23/21 reported Cardiomegaly with mild bilateral car diopulmonary edema and small pleural effusions. Ultrasound of Abdomen 11/25/21 reported Mild cirrhotic changes in the liver, mild splenomegaly and small ascites is suspected. Cholelithiasis but no convincing evidence for acute cholecystitis. Patient is on albuterol inhaler, Famotidine , Sucralfate. Recommend DVT prophylaxis, at least SCDs. I spent critical care time of 35 minutes, reviwing the chart, examine the patient, review ches xray and lab results and work up plan of treatment in this critically ill patient. - Patient Problems (1) Pulmonary edema Current Visit: Yes Status: Acute Plan to address problem: Recommend lasix. Management as per cardiology. (2) End-stage renal disease on hemodialysis Current Visit: Yes Status: Acute Plan to address problem: Management as per nephrology. (3) Cirrhosis Current Visit: Yes Status: Acute Plan to address problem: Management as per primary care and gastroenterology. (4) Elevated troponin Current Visit: Yes Status: Acute Plan to address problem: Management as per Cardiology. (5) Metabolic encephalopathy Current Visit: Yes Status: Acute Plan to address problem: Management as per primary care and neurology. (6) Pneumonia Current Visit: Yes Status: Acute Plan to address problem: Chest xray more of suggestive as pulmonary edema. In case underlying infection, Patient was empirically covered with ceftriaxone and Zithromax. (7) Sepsis Current Visit: Yes Status: Acute Plan to address problem: Patient was on ceftriaxone and Zithromax. Subjective Date of service: 11/26/21 Principal diagnosis: ESRD Interval history: This is a 76 years old male with past medical history of end-stage renal disease on hemodialysis Thursday, , Thursday and cirrhosis was brought to the hospital from [place] because of sepsis and left lower lobe pneumonia. Most of the history is obtained from the chart patient initially presented to the [facility] on November 18 with complaint of nausea vomiting that began the night of. Around 9 PM. In [facility] patient is found to have pneumonia with effusion patient reportedly has a history of liver failure as well as CT there revealed cirrhosis. In the ER patient reportedly appeared to be dehydrated and was found to have in septic shock with mean arterial pressure of 54. He was admitted to the hospital was put on antibiotic and Levophed. Patient had leukocytosis of 14.66. Renal fu nction indicative of end-stage renal disease, lactic at 10 downtrending to 5.5 . patient was admitted for septic shock, pneumonia and end-stage renal disease. According to the chart, patient has history of smoking. Patient sleeping, Lethergic, Not responding to verbal stimuli. Patient is on room air, O2 saturation running 99%. No acute respiratory distress. Patients ABGs on room air, PH 7.37, PCO2 42, PO2 74, HCO3 24 . O2 saturation 94 Patient afebrile. No leukocytosis. Blood pressure 168/96 , Pulse 92 , respirations 9. Chest xray done 11/23/21 reported Cardiomegaly with mild bilateral card iopulmonary edema and small pleural effusions. Ultrasound of Abdomen 11/25/21 reported Mild cirrhotic changes in the liver, mild splenomegaly and small ascites is suspected. Cholelithiasis but no convincing evidence for acute cholecystitis. Patient is on albuterol inhaler, Famotidine, Sucralfate. Recommend DVT prophylaxis, at least SCDs. Objective Vital Signs - 12hr 11/26/21 11/26/21 11/26/21 00:00 01:00 02:00 Temperature 98.9 F Pulse Rate 97 H 94 H 89 Pulse Rate [ 97 H From Monitor] Respiratory 10 L 10 L 9 L Rate Blood Pressure 150/84 150/84 157/85 O2 Sat by Pulse 100 100 99 Oximetry 11/26/21 11/26/21 11/26/21 03:00 04:00 05:00 Temperature 97.2 F L Pulse Rate 98 H 97 H 100 H Pulse Rate [ 97 H From Monitor] Respiratory 12 10 L 11 L Rate Blood Pressure 157/85 156/88 156/88 O2 Sat by Pulse 100 100 100 Oximetry 11/26/21 11/26/21 11/26/21 06:00 07:00 07:28 Temperature 98.5 F Pulse Rate 104 H 94 H Pulse Rate [ From Monitor] Respiratory 11 L 9 L Rate Blood Pressure 156/88 138/88 O2 Sat by Pulse 100 100 Oximetry 11/26/21 11/26/21 11/26/21 08:00 09:00 09:21 Temperature Pulse Rate 107 H 102 H 14 L Pulse Rate [ 97 H From Monitor] Respiratory 13 9 L Rate Blood Pressure 143/86 143/86 143/86 O2 Sat by Pulse 100 99 Oximetry 11/26/21 11/26/21 10:00 11:00 Temperature Pulse Rate 93 H Pulse Rate [ From Monitor] Respiratory 12 Rate Blood Pressure 143/86 168/96 O2 Sat by Pulse 95 99 Oximetry Constitutional: no acute distress, lethargic, asleep Eyes: icteric ENT: oropharynx moist Neck: supple, no JVD Effort: mildly labored Ascultation: Bilateral: rales Cardiovascular: regular rate and rhythm Gastrointestinal: hypoactive bowel sounds, soft, non-tender Integumentary: normal Extremities: no cyanosis, no edema Neurologic: unable to assess Psychiatric: other (Patient lethergic and sleepy.) CBC and BMP: 11/27/21 05:10 11/27/21 05:10 ABG, PT/INR, D-dimer: ABG ABG pH 7.373 pH Units (7.350-7.450) 11/25/21 15:10 ABG pCO2 42.1 mm Hg 11/25/21 15:10 ABG pO2 73.9 mm Hg (80.0-90.0) L 11/25/21 15:10 ABG O2 Saturation 96.7 % (95.0-99.0) 11/25/21 15:10 PT/INR, D-dimer PT 16.0 Sec. (12.2-14.9) H 11/26/21 04:28 INR 1.15 (0.87-1.13) H 11/26/21 04:28 Abnormal lab findings: Abnormal Labs 11/24/21 11/24/21 11/24/21 02:37 03:19 03:19 Hgb Hct MCV 95 H RDW 20.7 H Plt Count 133 L Seg Neuts % (Manual) 80.0 H Lymphocytes % (Manual) 9.0 L Monocytes % (Manual) 10.0 H Nucleated RBC % Lymphocytes # (Manual) 0.8 L Monocytes # (Manual) 0.9 H PT 15.9 H INR 1.14 H ABG pO2 ABG Hemoglobin Oxyhemoglobin Chloride 95.8 L Carbon Dioxide 20 L BUN 30 H Creatinine 4.6 H Glucose Phosphorus Total Bilirubin 2.50 H AST 330 H ALT 324 H Alkaline Phosphatase 170 H CK-MB (CK-2) Rel Index Troponin T Total Protein 5.6 L Albumin 3.5 L Triglycerides 215 H HDL Cholesterol 22 L 11/24/21 11/24/21 11/24/21 03:19 15:09 20:19 Hgb Hct MCV RDW Plt Count Seg Neuts % (Manual) Lymphocytes % (Manual) Monocytes % (Manual) Nucleated RBC % Lymphocytes # (Manual) Monocytes # (Manual) PT INR ABG pO2 ABG Hemoglobin Oxyhemoglobin Chloride Carbon Dioxide BUN Creatinine Glucose Phosphorus Total Bilirubin AST ALT Alkaline Phosphatase CK-MB (CK-2) Rel Index 4.2 H 4.4 H Troponin T 0.560 H* 0.576 H* 0.579 H* Total Protein Albumin Triglycerides HDL Cholesterol 11/25/21 11/25/21 11/25/21 04:23 04:23 04:23 Hgb 11.0 L Hct 33.5 L D MCV RDW 20.4 H Plt Count 112 L Seg Neuts % (Manual) Lymphocytes % (Manual) Monocytes % (Manual) Nucleated RBC % Lymphocytes # (Manual) Monocytes # (Manual) PT 16.0 H INR 1.15 H ABG pO2 ABG Hemoglobin Oxyhemoglobin Chloride Carbon Dioxide 21 L BUN 38 H Creatinine 5.3 H Glucose Phosphorus Total Bilirubin 1.90 H AST 175 H ALT 222 H Alkaline Phosphatase 142 H CK-MB (CK-2) Rel Index Troponin T Total Protein 5.2 L Albumin 3.1 L Triglycerides HDL Cholesterol 11/25/21 11/25/21 11/26/21 15:10 19:58 04:28 Hgb Hct MCV RDW 20.6 H Plt Count 119 L Seg Neuts % (Manual) 93.0 H Lymphocytes % (Manual) 4.0 L Monocytes % (Manual) Nucleated RBC % 1.0 H Lymphocytes # (Manual) 0.3 L Monocytes # (Manual) PT INR ABG pO2 73.9 L ABG Hemoglobin 7.9 L Oxyhemoglobin 94.2 L Chloride Carbon Dioxide BUN Creatinine Glucose Phosphorus 6.10 H Total Bilirubin AST ALT Alkaline Phosphatase CK-MB (CK-2) Rel Index Troponin T Total Protein Albumin Triglycerides HDL Cholesterol 11/26/21 11/26/21 04:28 04:28 Hgb Hct MCV RDW Plt Count Seg Neuts % (Manual) Lymphocytes % (Manual) Monocytes % (Manual) Nucleated RBC % Lymphocytes # (Manual) Monocytes # (Manual) PT 16.0 H INR 1.15 H ABG pO2 ABG Hemoglobin Oxyhemoglobin Chloride Carbon Dioxide 20 L BUN 45 H Creatinine 5.7 H Glucose 162 H Phosphorus Total Bilirubin 2.20 H AST 113 H ALT 190 H Alkaline Phosphatase 149 H CK-MB (CK-2) Rel Index Troponin T Total Protein Albumin 3.1 L Triglycerides HDL Cholesterol
--- NOTE | 2021-11-26 13:07 | Progress Note ---
Assessment and Plan - Patient Problems (1) Elevated troponin Current Visit: Yes Status: Acute Plan to address problem: Patient transferred from hospital in [place], for continued management of sepsis. No cardiac complaints, echocardiogram on this presentation shows ejection fraction is well-preserved at 50 to 55%. Subjective Date of service: 11/26/21 Principal diagnosis: ESRD Interval history: Patient appears lethargic, but breathing comfortably no acute distress. 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 Objective Vital Signs Temp Pulse Pulse Resp BP Pulse Ox 11/26/21 12:00 92 H 9 L 168/96 99 11/26/21 11:55 98.0 F 11/26/21 11:00 168/96 99 11/26/21 10:00 93 H 12 143/86 95 11/26/21 09:21 14 L 143/86 11/26/21 09:00 102 H 9 L 143/86 99 11/26/21 08:00 107 H 97 H 13 143/86 100 11/26/21 07:28 98.5 F 11/26/21 07:00 94 H 9 L 138/88 100 11/26/21 06:00 104 H 11 L 156/88 100 11/26/21 05:00 100 H 11 L 156/88 100 11/26/21 04:00 97.2 F L 97 H 97 H 10 L 156/88 100 11/26/21 03:00 98 H 12 157/85 100 11/26/21 02:00 89 9 L 157/85 99 11/26/21 01:00 94 H 10 L 150/84 100 11/26/21 00:00 98.9 F 97 H 97 H 10 L 150/84 100 11/25/21 23:00 93 H 10 L 134/89 100 11/25/21 22:41 98 H 9 L 134/89 100 11/25/21 22:00 115 H 13 162/84 99 11/25/21 21:00 162/84 99 11/25/21 20:00 97.6 F 80 100 H 18 166/82 96 11/25/21 19:00 126 H 20 163/81 97 11/25/21 18:00 100 H 10 L 163/81 100 11/25/21 17:00 103 H 15 156/88 99 11/25/21 16:00 98.4 F 103 H 100 H 10 L 154/78 97 11/25/21 15:00 111 H 14 130/88 97 11/25/21 14:00 103 H 10 L 137/73 - Physical Examination General: No Apparent Distress HEENT: Positive: PERRL Neck: Positive: neck supple Cardiac: Positive: Reg Rate and Rhythm Lungs: Positive: Decreased Breath Sounds Neuro: Positive: Weakness (Generalized lethargy) Abdomen: Positive: Soft Skin: Positive: Clear Extremities: Absent: edema - Labs and Meds Cardiac Enzymes 11/26/21 Range/Units 04:28 AST 113 H (5-40) units/L Coagulation 11/26/21 Range/Units 04:28 PT 16.0 H (12.2-14.9) Sec. INR 1.15 H (0.87-1.13) CBC 11/26/21 Range/Units 04:28 WBC 7.7 (4.5-11.0) K/mm3 RBC 3.93 (3.65-5.03) M/mm3 Hgb 11.8 (11.8-15.2) gm/dl Hct 36.9 (35.5-45.6) % Plt Count 119 L (140-440) K/mm3 Comprehensive Metabolic Panel 11/26/21 Range/Units 04:28 Sodium 143 (137-145) mmol/L Potassium 5.0 D (3.6-5.0) mmol/L Chloride 100.3 (98-107) mmol/L Carbon Dioxide 20 L (22-30) mmol/L BUN 45 H (9-20) mg/dL Creatinine 5.7 H (0.8-1.3) mg/dL Glucose 162 H (75-100) mg/dL Calcium 9.2 (8.4-10.2) mg/dL AST 113 H (5-40) units/L ALT 190 H (7-56) units/L Alkaline Phosphatase 149 H (35-129) units/L Total Protein 6.4 D (6.3-8.2) g/dL Albumin 3.1 L (3.9-5) g/dL
--- NOTE | 2021-11-26 13:16 | Electrocardiograph Report ---
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
[2021-11-26] MEDS ORDERED: ALBUTEROL 2.5 MG/3 ML NEBU IH PRN (13:56)
--- NOTE | 2021-11-26 14:05 | Progress Note ---
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 Per family patient was out of state in [place] last week during his birthday and felt sick and vomited and was at an urgent care in [place] then transferred over to a facility in [place] for hemodialysis. Per granddaughter patient received dialysis on 10/20 and 10/22. After his treatment on 10/22 patient had altered mental status. Per granddaughter patient was being treated with nafcillin which was changed to Zosyn after blood cultures grew staph and patient also was noted to have pleural effusions. Per documentation patient was started on Levophed for septic shock with lactic acidosis. Patient was admitted to the hospital service with septic shock, pneumonia and ESRD with consults to nephrology, CCM, GI and cardiology. Patient remains encephalopathic. Spoke to son at bedside. Patient had apparently been hospitalized in [facility] approximately 1.5 weeks ago. Facility was too small to handle patient care so he was airlifted to a facility in [place]. Patient had been treated for pneumonia in [place] as well as given dialysis treatments. He demonstrated some moderate improvement but did not have complete resolution of symptoms. Patient family subsequently drove him down to [place]. They are residents of [place] however patient family opted to admit patient at [facility]. Per son, patient has an extensive drinking history. He had only recently been told by physicians at the hospital in [place] the patient has liver disease. Patient has been on hemodialysis for approximately 1 year now. He is tolerating hemodialysis well and has been compliant with this. The son did note that the patient prior to being hospitalized was drinking extensively with family [place]. Prior to this he had been drinking frequently per the son. Hospital course to date: 11/24 patient started on lactulose and rifaximin. Due to her inadequate oral intake patient started on Nepro. Echocardiogram completed today. We will also obtain a right upper quadrant ultrasound to rule out biliary duct dilation. 11/25: Remain encephalopathic. RUQ ultrasound demonstrates mild cirrhotic changes with mild splenomegaly and small ascites. Cholelithiasis observed in study ho wever no evidence of cholecystitis. Will get hemodialysis today. Continue therapy with lactulose. Added solumedrol IV. Would consider rifaximin but will follow GI direction regarding admin. 11/26: Patient showing some slow improvement in the area of mental status. Not quite yet at baseline. LFTs at gradually trending down. I did get some more information on the patient. Apparently the patient had a GI bleed to sometimes earlier this year late last year was admitted to [facility] at that time was diagnosed with liver cirrhosis. Hemodialysis has been going on for about 2 years patient was on initially on PD then converted to HD. I will request records from [facility] and also from [facility] in [place]. I will also try to request hospital from the facility in [place]. I did discuss with GI doctor we agreed that steroids should be discontinued at this time. Patient does have a thrombocytopenia which is showing some improvement. Concern that the patient passed bedside swallow evaluation with aspiration and fall precaution in place patient can be resumed on oral diet including continue lactulose. 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 Neuro: Acute metabolic encephalopathy. possible Hepatic encephalopathy, current EtOH abuse -Reorientation as needed -Maintain sleep-wake cycle -As needed analgesia -Per family patient's mental status is much improved -Lactulose OH -Ammonia 31 Cardiac: Elevated troponin, h/o HTN, CAD with CABG x3 -Cardiology consulted, appreciate recommendations -Blood pressure monitoring per protocol -Patient was on vasopressor support at OSH but currently not needing any -Echocardiogram from [place] reveals LVEF 35 to 40% Respiratory: Current nicotine abuse -CCM consulted, appreciate recommendations -Currently on room air -SPO2 monitoring -Pulmonary hygiene GI: Moderate protein calorie malnutrition, transaminitis, h/o EtOH cirrhosis, alcoholic hepatitis, cirrhosis -GI consulted, appreciate recommendations - MELD-Na: 21, 7-10% est mortality. - Bili: 1.9, AST: 175, ALT: 22, ALP: 142, Alb: 3.1 -Per family patient has been evaluated by [facility] ileana shaw not a candidate for transplant due to active drinking hx. -Patient takes OH lactulose, would consider rifaximin -added solumedrol -PPI -Cardiac, consistent carbohydrate renal diet -Nutrition supplementation -BR: Lactulose OH -Abd US: demonstrates mild cirrhotic changes with mild splenomegaly and small ascites. Cholelithiasis observed in study however no evidence of cholecystitis -Trend LFTs, hold potential hepatotoxins (apap, statins) : ESRD on HD -Nephrology consulted, appreciate recommendations -Monitor intake and output -Outpatient Thursday -HD per nephrology -Renally dose medications -Avoid nephrotoxic medications -Trend BMP ID: r/o Sepsis -Per family patient was being treated for right lower lobe pneumonia and sepsis at OSH and received a total of 7 days of antibiotics -CXR shows cardiomegaly with mild bilateral cardiopulmonary edema and small pleural effusions -Antibiotic therapy with cefepime and vancomycin -Given no leukocytosis, afebrile nature and no clearly identifiable source of infection with likely 7 days of abx therapy at OSH (staph bacteremia treated with nafcillin and Zosyn at OSH per family), will stop cefepime and vancomycin -Restart antibiotic therapy if needed -P.o. rifaximin -f/u blood culture -Monitor WBC and temperature curve Endo: h/o DM -Avoid hypoglycemia -SSI -Accu-Cheks q. 6 Heme: Elevated INR, AOCD, thrombocytopenia -Trend CBC -Transfuse hemoglobin less than 7 -SCDs to BLE while in bed cct 35 mins History Interval history: Patient seen and examined this morning still with some confusion but mental status is improving slowly. Discussed with nursing staff patient passed swallow examined bedside. Hospitalist Physical - Physical exam Narrative exam: General appearance: Present: no acute distress, cachectic, other (Chronically ill-appearing), responsive, but with intermittent confusion - EENT Eyes: Present: PERRL, EOM intact ENT: clear oral mucosa, dentition normal - Neck Neck: Present: normal ROM - Respiratory Respiratory effort: normal Respiratory: bilateral: diminished - Cardiovascular Rhythm: regular Heart Sounds: Present: S1 & S2. Absent: systolic murmur, diastolic murmur - Extremities Extremities: no ischemia, pulses intact, pulses symmetrical, No edema, normal t emperature, normal color Peripheral Pulses: within normal limits - Abdominal General gastrointestinal: soft, non-tender, non-distended, normal bowel sounds - Integumentary Integumentary: Present: warm, dry - Psychiatric Psychiatric: cooperative - Neurologic Neurologic: CNII-XII intact, no focal deficits, moves all extremities - Allied Health Allied health notes reviewed: nursing - Constitutional Vitals: Temp Pulse Resp BP Pulse Ox 98.0 F 97 H 10 L 168/96 100 11/26/21 11:55 11/26/21 12:00 11/26/21 12:00 11/26/21 12:00 11/26/21 12:00 General appearance: Present: no acute distress, cachectic, other (Chronically ill-appearing) HEART Score - HEART Score Troponin: Troponin T 0.579 ng/mL (0.00-0.029) H* 11/24/21 20:19 Results - Labs CBC & Chem 7: 11/26/21 04:28 11/26/21 04:28 Labs: Laboratory Last Values WBC 7.7 K/mm3 (4.5-11.0) 11/26/21 04:28 RBC 3.93 M/mm3 (3.65-5.03) 11/26/21 04:28 Hgb 11.8 gm/dl (11.8-15.2) 11/26/21 04:28 Hct 36.9 % (35.5-45.6) 11/26/21 04:28 MCV 94 fl (84-94) 11/26/21 04:28 MCH 30 pg (28-32) 11/26/21 04:28 MCHC 32 % (32-34) 11/26/21 04:28 RDW 20.6 % (13.2-15.2) H 11/26/21 04:28 Plt Count 119 K/mm3 (140-440) L 11/26/21 04:28 Add Manual Diff Complete 11/26/21 04:28 Total Counted 100 11/26/21 04:28 Seg Neutrophils % Batch Tank Controller 11/26/21 04:28 Seg Neuts % (Manual) 93.0 % (40.0-70.0) H 11/26/21 04:28 Band Neutrophils % 2.0 % 11/26/21 04:28 Lymphocytes % (Manual) 4.0 % (13.4-35.0) L 11/26/21 04:28 Reactive Lymphs % (Man) 0 % 11/26/21 04:28 Monocytes % (Manual) 1.0 % (0.0-7.3) 11/26/21 04:28 Eosinophils % (Manual) 0 % (0.0-4.3) 11/26/21 04:28 Basophils % (Manual) 0 % (0.0-1.8) 11/26/21 04:28 Metamyelocytes % 0 % 11/26/21 04:28 Myelocytes % 0 % 11/26/21 04:28 Promyelocytes % 0 % 11/26/21 04:28 Blast Cells % 0 % 11/26/21 04:28 Nucleated RBC % 1.0 % (0.0-0.9) H 11/26/21 04:28 Seg Neutrophils # Man 7.2 K/mm3 (1.8-7.7) 11/26/21 04:28 Band Neutrophils # 0.2 K/mm3 11/26/21 04:28 Lymphocytes # (Manual) 0.3 K/mm3 (1.2-5.4) L 11/26/21 04:28 Abs React Lymphs (Man) 0.0 K/mm3 11/26/21 04:28 Monocytes # (Manual) 0.1 K/mm3 (0.0-0.8) 11/26/21 04:28 Eosinophils # (Manual) 0.0 K/mm3 (0.0-0.4) 11/26/21 04:28 Basophils # (Manual) 0.0 K/mm3 (0.0-0.1) 11/26/21 04:28 Metamyelocytes # 0.0 K/mm3 11/26/21 04:28 Myelocytes # 0.0 K/mm3 11/26/21 04:28 Promyelocytes # 0.0 K/mm3 11/26/21 04:28 Blast Cells # 0.0 K/mm3 11/26/21 04:28 WBC Morphology Not Reportable 11/26/21 04:28 Hypersegmented Neuts Not Reportable 11/26/21 04:28 Hyposegmented Neuts Not Reportable 11/26/21 04:28 Hypogranular Neuts Not Reportable 11/26/21 04:28 Smudge Cells Not Reportable 11/26/21 04:28 Toxic Granulation Not Reportable 11/26/21 04:28 Toxic Vacuolation Not Reportable 11/26/21 04:28 Dohle Bodies Not Reportable 11/26/21 04:28 Pelger-Huet Anomaly Not Reportable 11/26/21 04:28 Jasmeet Rods Not Reportable 11/26/21 04:28 Platelet Estimate Consistent w auto 11/26/21 04:28 Clumped Platelets Not Reportable 11/26/21 04:28 Plt Clumps, EDTA Not Reportable 11/26/21 04:28 Large Platelets Not Reportable 11/26/21 04:28 Giant Platelets Not Reportable 11/26/21 04:28 Platelet Satelliting Not Reportable 11/26/21 04:28 Plt Morphology Comment Not Reportable 11/26/21 04:28 RBC Morphology Not Reportable 11/26/21 04:28 Dimorphic RBCs Not Reportable 11/26/21 04:28 Polychromasia Not Reportable 11/26/21 04:28 Hypochromasia Not Reportable 11/26/21 04:28 Poikilocytosis Not Reportable 11/26/21 04:28 Anisocytosis 1+ 11/26/21 04:28 Microcytosis Not Reportable 11/26/21 04:28 Macrocytosis Not Reportable 11/26/21 04:28 Spherocytes Not Reportable 11/26/21 04:28 Pappenheimer Bodies Not Reportable 11/26/21 04:28 Sickle Cells Not Reportable 11/26/21 04:28 Target Cells 1+ 11/26/21 04:28 Tear Drop Cells Not Reportable 11/26/21 04:28 Ovalocytes Not Reportable 11/26/21 04:28 Helmet Cells Not Reportable 11/26/21 04:28 [place] Bodies Not Reportable 11/26/21 04:28 [place] Rings Not Reportable 11/26/21 04:28 Oden Cells Not Reportable 11/26/21 04:28 Bite Cells Not Reportable 11/26/21 04:28 Crenated Cell Not Reportable 11/26/21 04:28 Elliptocytes Not Reportable 11/26/21 04:28 Acanthocytes (Spur) Not Reportable 11/26/21 04:28 Rouleaux Not Reportable 11/26/21 04:28 Hemoglobin C Crystals Not Reportable 11/26/21 04:28 Schistocytes Not Reportable 11/26/21 04:28 Malaria parasites Not Reportable 11/26/21 04:28 Christopher Bodies Not Reportable 11/26/21 04:28 Hem Pathologist Commnt No 11/26/21 04:28 PT 16.0 Sec. (12.2-14.9) H 11/26/21 04:28 INR 1.15 (0.87-1.13) H 11/26/21 04:28 ABG pH 7.373 pH Units (7.350-7.450) 11/25/21 15:10 ABG pCO2 42.1 mm Hg 11/25/21 15:10 ABG pO2 73.9 mm Hg (80.0-90.0) L 11/25/21 15:10 ABG HCO3 23.9 mmol/L (20.0-26.0) 11/25/21 15:10 ABG O2 Saturation 96.7 % (95.0-99.0) 11/25/21 15:10 ABG O2 Content 10.6 (0.0-44) 11/25/21 15:10 ABG Base Excess -1.2 mmol/L (-2.0-3.0) 11/25/21 15:10 ABG Hemoglobin 7.9 gm/dl (14.0-18.0) L 11/25/21 15:10 ABG Carboxyhemoglobin 2.2 % (0.0-5.0) 11/25/21 15:10 ABG Methemoglobin 0.4 % (0.0-1.5) 11/25/21 15:10 Oxyhemoglobin 94.2 % (95.0-99.0) L 11/25/21 15:10 FiO2 21 % 11/25/21 15:10 Sodium 143 mmol/L (137-145) 11/26/21 04:28 Potassium 5.0 mmol/L (3.6-5.0) D 11/26/21 04:28 Chloride 100.3 mmol/L (98-107) 11/26/21 04:28 Carbon Dioxide 20 mmol/L (22-30) L 11/26/21 04:28 Anion Gap 28 mmol/L 11/26/21 04:28 BUN 45 mg/dL (9-20) H 11/26/21 04:28 Creatinine 5.7 mg/dL (0.8-1.3) H 11/26/21 04:28 Estimated GFR 10 ml/min 11/26/21 04:28 BUN/Creatinine Ratio 8 % 11/26/21 04:28 Glucose 162 mg/dL (75-100) H 11/26/21 04:28 POC Glucose 232 mg/dL (70-105) H 11/26/21 11:30 Lactic Acid 1.30 mmol/L (0.7-2.0) 11/24/21 04:38 Calcium 9.2 mg/dL (8.4-10.2) 11/26/21 04:28 Phosphorus 6.10 mg/dL (2.5-4.5) H 11/25/21 19:58 Magnesium 2.10 mg/dL (1.7-2.3) 11/25/21 19:58 Total Bilirubin 2.20 mg/dL (0.1-1.2) H 11/26/21 04:28 AST 113 units/L (5-40) H 11/26/21 04:28 ALT 190 units/L (7-56) H 11/26/21 04:28 Alkaline Phosphatase 149 units/L (35-129) H 11/26/21 04:28 Ammonia 31.0 umol/L (25-60) 11/24/21 04:38 Total Creatine Kinase 77 units/L (55-170) 11/24/21 20:19 CK-MB (CK-2) 2.9 ng/mL (0.0-4.0) 11/24/21 20:19 CK-MB (CK-2) Rel Index 3.7 (0-4) 11/24/21 20:19 Troponin T 0.579 ng/mL (0.00-0.029) H* 11/24/21 20:19 Total Protein 6.4 g/dL (6.3-8.2) D 11/26/21 04:28 Albumin 3.1 g/dL (3.9-5) L 11/26/21 04:28 Albumin/Globulin Ratio 0.9 % 11/26/21 04:28 Triglycerides 215 mg/dL (2-149) H 11/24/21 03:19 Cholesterol 138 mg/dL (50-199) 11/24/21 03:19 LDL Cholesterol Direct 53 mg/dL (50-130) 11/24/21 03:19 HDL Cholesterol 22 mg/dL (40-59) L 11/24/21 03:19 Cholesterol/HDL Ratio 6.27 % 11/24/21 03:19 Hepatitis A IgM Ab Non-reactive (NonReactive) 11/25/21 19:58 Hep Bs Antigen Non-reactive (Negative) 11/25/21 19:58 Hep B Core IgM Ab Non-reactive (NonReactive) 11/25/21 19:58 Hepatitis C Antibody Non-reactive (NonReactive) 11/25/21 19:58 Microbiology: Microbiology 11/24/21 02:37 Peripheral/Venous Blood Culture - Preliminary NO GROWTH AFTER 48 HOURS 11/24/21 03:19 Peripheral/Venous Blood Culture - Preliminary NO GROWTH AFTER 48 HOURS Active Medications - Current Medications Current Medications: Generic Name Dose Route Start Last Admin Trade Name Freq PRN Reason Stop Dose Admin Albuterol 2.5 mg 11/26/21 16:00 Albuterol 2.5 Mg/3 Ml Nebu IH Q4HRT [facility] Allopurinol 100 mg 11/27/21 10:00 Allopurinol 100 Mg Tab PO QDAY HUGH Aspirin 81 mg 11/24/21 10:00 11/26/21 09:21 Aspirin 81 Mg Tab Chew PO 81 mg QDAY HUGH Administration Famotidine 20 mg 11/26/21 10:00 11/26/21 09:22 Famotidine 20 Mg Tab PO 20 mg DAILY HUGH Administration Folic Acid 1 mg 11/25/21 10:00 11/26/21 09:21 Folic Acid 1 Mg Tab PO 1 mg QDAY [facility] Administration Lactulose 20 gm 11/25/21 08:00 11/26/21 08:26 Lactulose 20 Gm/30 Ml Oral Liqd PO 20 gm Q6H HUGH Administration Metoprolol Tartrate 25 mg 11/25/21 22:00 11/26/21 09:21 Metoprolol Tartrate 25 Mg Tab PO 25 mg BID HUGH Administration Miscellaneous Medication 1 gm 11/26/21 16:30 Carafate PO ACHS [facility] Ondansetron HCl 4 mg 11/23/21 23:05 Ondansetron 4 Mg/2 Ml Inj IV Q8H PRN Nausea And Vomiting Rifaximin 550 mg 11/25/21 14:00 11/26/21 09:21 Rifaximin 550 Mg Tab FEEDTUBE 550 mg BID HUGH Administration Sodium Chloride 10 ml 11/24/21 10:00 11/26/21 09:22 Sodium Chloride 0.9% 10 Ml Flush Syringe IV 10 ml BID HUGH Administration Sodium Chloride 10 ml 11/23/21 23:05 Sodium Chloride 0.9% 10 Ml Flush Syringe IV PRN PRN LINE FLUSH Nutrition/Malnutrition Assess - Dietary Evaluation Nutrition/Malnutrition Findings: Nutrition Notes Start: 11/24/21 10:38 Freq: Status: Active Protocol: Document 11/25/21 11:53 JOAQUINCORBY (Rec: 11/25/21 12:01 NVALL [id number]) Nutrition Notes Need for Assessment generated from: MD Order Initial or Follow up Reassessment Current Diagnosis CKD (stage V CKD),Diabetes, Sepsis,Hypertension Other Pertinent Diagnosis Pneu, AMS, Cirrhosis sec to EtOH dependence Current Diet Cardiac + Nepro Labs/Tests BUN 38 Cr 5.3 tBili 1.9 Elevated LFTs Pertinent Medications Folic acid, Lactulose Height 5 ft 10 in Weight 79.4 kg Avis Body Weight (kg) 75.45 BMI 25.1 Weight Status Appropriate Subjective/Other Information RD consulted for TF. Per RN note this am, unable to pass DHT. Pt remains confused. Burn Absent Trauma Absent Difficulty In Swallowing Minimum of two criteria No #1 Nutrition Diagnosis Inadequate oral intake Diagnosis Progress(for reassessment Continues documentation) Is patient on ventilator? No Is Patient Ambulatory and/or Out of Bed No REE-([facility]-confined to bed) [phone] Calculation Used for Recommendations [facility] Additional Notes Pro needs >1.2g/kg: >95g/day Fluid needs 1-1.5L/day Nutrition Intervention Change Diet Order: D/C PO diet Nutrition Support: Nepro at 43ml/hr with 125ml water flush q4h. Kcal 1,857 Protein (gm) 84 Carbohydrates (gm) 166 Fat (gm) 99 Fluid (mL) 750 Fiber (gm) 13 Goal #1 TF tolerance Goal #2 TF to meet at least 75% energy and pro needs Anticipated Discharge Needs: Continue EN support if necessary Follow-Up By: 11/27/21 Additional Comments F/U: new TF
--- NOTE | 2021-11-26 14:24 | Gastroenterology Progress Note ---
Assessment and Plan 1. Hepatic encephalopathy - cont scheduled lactulose every 6-8 hours, goal of 3 bm's daily ( has had 2 so far today) and cont xifaxin bid dosing 2. Decompensated cirrhosis - etiology likely alcohol, discussed with pt's sister in law at bedside who confirmed etiology. liver enzymes stable. 3. ascites - small volume on imaging, complete course of abx per primary which will empirically cover possible sbp Subjective Date of service: 11/26/21 Principal diagnosis: cirrhosis, AMS Interval history: mentation about the same as yesterday. has had 2 bm's today per pt's nurse Objective - Exam Narrative Exam: Gen: nad, confused Abd: soft, mod distention CV: rrr - Constitutional Vitals: Temp Pulse Resp BP Pulse Ox 98.0 F 97 H 10 L 168/96 100 11/26/21 11:55 11/26/21 12:00 11/26/21 12:00 11/26/21 12:00 11/26/21 12:00 - Labs CBC & Chem 7: 11/26/21 04:28 11/26/21 04:28 Labs: Laboratory Results - last 24 hr 11/25/21 11/25/21 11/25/21 15:10 16:21 19:58 WBC RBC Hgb Hct MCV MCH MCHC RDW Plt Count Add Manual Diff Total Counted Seg Neutrophils % Seg Neuts % (Manual) Band Neutrophils % Lymphocytes % (Manual) Reactive Lymphs % (Man) Monocytes % (Manual) Eosinophils % (Manual) Basophils % (Manual) Metamyelocytes % Myelocytes % Promyelocytes % Blast Cells % Nucleated RBC % Seg Neutrophils # Man Band Neutrophils # Lymphocytes # (Manual) Abs React Lymphs (Man) Monocytes # (Manual) Eosinophils # (Manual) Basophils # (Manual) Metamyelocytes # Myelocytes # Promyelocytes # Blast Cells # WBC Morphology Hypersegmented Neuts Hyposegmented Neuts Hypogranular Neuts Smudge Cells Toxic Granulation Toxic Vacuolation Dohle Bodies Pelger-Huet Anomaly Jasmeet Rods Platelet Estimate Clumped Platelets Plt Clumps, EDTA Large Platelets Giant Platelets Platelet Satelliting Plt Morphology Comment RBC Morphology Dimorphic RBCs Polychromasia Hypochromasia Poikilocytosis Anisocytosis Microcytosis Macrocytosis Spherocytes Pappenheimer Bodies Sickle Cells Target Cells Tear Drop Cells Ovalocytes Helmet Cells [place] Bodies [place] Rings [place] Cells Bite Cells Crenated Cell Elliptocytes Acanthocytes (Spur) Rouleaux Hemoglobin C Crystals Schistocytes Malaria parasites Christopher Bodies Hem Pathologist Commnt PT INR ABG pH 7.373 ABG pCO2 42.1 ABG pO2 73.9 L ABG HCO3 23.9 ABG O2 Saturation 96.7 ABG O2 Content 10.6 ABG Base Excess -1.2 ABG Hemoglobin 7.9 L ABG Carboxyhemoglobin 2.2 ABG Methemoglobin 0.4 Oxyhemoglobin 94.2 L FiO2 21 Sodium Potassium Chloride Carbon Dioxide Anion Gap BUN Creatinine Estimated GFR BUN/Creatinine Ratio Glucose POC Glucose 92 Calcium Phosphorus Magnesium Total Bilirubin AST ALT Alkaline Phosphatase Total Protein Albumin Albumin/Globulin Ratio Hepatitis A IgM Ab Non-reactive Hep Bs Antigen Non-reactive Hep B Core IgM Ab Non-reactive Hepatitis C Antibody Non-reactive 11/25/21 11/26/21 11/26/21 19:58 04:28 04:28 WBC 7.7 RBC 3.93 Hgb 11.8 Hct 36.9 MCV 94 MCH 30 MCHC 32 RDW 20.6 H Plt Count 119 L Add Manual Diff Complete Total Counted 100 Seg Neutrophils % Replenishment Specialist Seg Neuts % (Manual) 93.0 H Band Neutrophils % 2.0 Lymphocytes % (Manual) 4.0 L Reactive Lymphs % (Man) 0 Monocytes % (Manual) 1.0 Eosinophils % (Manual) 0 Basophils % (Manual) 0 Metamyelocytes % 0 Myelocytes % 0 Promyelocytes % 0 Blast Cells % 0 Nucleated RBC % 1.0 H Seg Neutrophils # Man 7.2 Band Neutrophils # 0.2 Lymphocytes # (Manual) 0.3 L Abs React Lymphs (Man) 0.0 Monocytes # (Manual) 0.1 Eosinophils # (Manual) 0.0 Basophils # (Manual) 0.0 Metamyelocytes # 0.0 Myelocytes # 0.0 Promyelocytes # 0.0 Blast Cells # 0.0 WBC Morphology Not Reportable Hypersegmented Neuts Not Reportable Hyposegmented Neuts Not Reportable Hypogranular Neuts Not Reportable Smudge Cells Not Reportable Toxic Granulation Not Reportable Toxic Vacuolation Not Reportable Dohle Bodies Not Reportable Pelger-Huet Anomaly Not Reportable Jasmeet Rods Not Reportable Platelet Estimate Consistent w auto Clumped Platelets Not Reportable Plt Clumps, EDTA Not Reportable Large Platelets Not Reportable Giant Platelets Not Reportable Platelet Satelliting Not Reportable Plt Morphology Comment Not Reportable RBC Morphology Not Reportable Dimorphic RBCs Not Reportable Polychromasia Not Reportable Hypochromasia Not Reportable Poikilocytosis Not Reportable Anisocytosis 1+ Microcytosis Not Reportable Macrocytosis Not Reportable Spherocytes Not Reportable Pappenheimer Bodies Not Reportable Sickle Cells Not Reportable Target Cells 1+ Tear Drop Cells Not Reportable Ovalocytes Not Reportable Helmet Cells Not Reportable [place] Bodies Not Reportable [place] Rings Not Reportable [place] Cells Not Reportable Bite Cells Not Reportable Crenated Cell Not Reportable Elliptocytes Not Reportable Acanthocytes (Spur) Not Reportable Rouleaux Not Reportable Hemoglobin C Crystals Not Reportable Schistocytes Not Reportable Malaria parasites Not Reportable Christopher Bodies Not Reportable Hem Pathologist Commnt No PT 16.0 H INR 1.15 H ABG pH ABG pCO2 ABG pO2 ABG HCO3 ABG O2 Saturation ABG O2 Content ABG Base Excess ABG Hemoglobin ABG Carboxyhemoglobin ABG Methemoglobin Oxyhemoglobin FiO2 Sodium Potassium Chloride Carbon Dioxide Anion Gap BUN Creatinine Estimated GFR BUN/Creatinine Ratio Glucose POC Glucose Calcium Phosphorus 6.10 H Magnesium 2.10 Total Bilirubin AST ALT Alkaline Phosphatase Total Protein Albumin Albumin/Globulin Ratio Hepatitis A IgM Ab Hep Bs Antigen Hep B Core IgM Ab Hepatitis C Antibody 11/26/21 11/26/21 04:28 11:30 WBC RBC Hgb Hct MCV MCH MCHC RDW Plt Count Add Manual Diff Total Counted Seg Neutrophils % Seg Neuts % (Manual) Band Neutrophils % Lymphocytes % (Manual) Reactive Lymphs % (Man) Monocytes % (Manual) Eosinophils % (Manual) Basophils % (Manual) Metamyelocytes % Myelocytes % Promyelocytes % Blast Cells % Nucleated RBC % Seg Neutrophils # Man Band Neutrophils # Lymphocytes # (Manual) Abs React Lymphs (Man) Monocytes # (Manual) Eosinophils # (Manual) Basophils # (Manual) Metamyelocytes # Myelocytes # Promyelocytes # Blast Cells # WBC Morphology Hypersegmented Neuts Hyposegmented Neuts Hypogranular Neuts Smudge Cells Toxic Granulation Toxic Vacuolation Dohle Bodies Pelger-Huet Anomaly Jasmeet Rods Platelet Estimate Clumped Platelets Plt Clumps, EDTA Large Platelets Giant Platelets Platelet Satelliting Plt Morphology Comment RBC Morphology Dimorphic RBCs Polychromasia Hypochromasia Poikilocytosis Anisocytosis Microcytosis Macrocytosis Spherocytes Pappenheimer Bodies Sickle Cells Target Cells Tear Drop Cells Ovalocytes Helmet Cells [place] Bodies [place] Rings [place] Cells Bite Cells Crenated Cell Elliptocytes Acanthocytes (Spur) Rouleaux Hemoglobin C Crystals Schistocytes Malaria parasites Christopher Bodies Hem Pathologist Commnt PT INR ABG pH ABG pCO2 ABG pO2 ABG HCO3 ABG O2 Saturation ABG O2 Content ABG Base Excess ABG Hemoglobin ABG Carboxyhemoglobin ABG Methemoglobin Oxyhemoglobin FiO2 Sodium 143 Potassium 5.0 D Chloride 100.3 Carbon Dioxide 20 L Anion Gap 28 BUN 45 H Creatinine 5.7 H Estimated GFR 10 BUN/Creatinine Ratio 8 Glucose 162 H POC Glucose 232 H Calcium 9.2 Phosphorus Magnesium Total Bilirubin 2.20 H AST 113 H ALT 190 H Alkaline Phosphatase 149 H Total Protein 6.4 D Albumin 3.1 L Albumin/Globulin Ratio 0.9 Hepatitis A IgM Ab Hep Bs Antigen Hep B Core IgM Ab Hepatitis C Antibody
[2021-11-26] MEDS ORDERED: CARAFATE 1 GM PO SCH (16:30)
[2021-11-26] MEDS ORDERED: SUCRALFATE 1 GM/10 ML ORAL LIQD PO SCH (16:30)
[2021-11-26] MEDS: ALBUTEROL 2.5 MG/3 ML NEBU IH SCH ×2 (17:00→21:15)
[2021-11-26] MEDS: SUCRALFATE 1 GM TAB PO SCH ×2 (17:33→23:40)
[2021-11-27] MEDS: LACTULOSE 20 GM/30 ML ORAL LIQD PO SCH ×3 (04:14→11:32)
[2021-11-27 05:48] LABS: Hematocrit 38.3 % (35.5-45.6); Hemoglobin 12.1 gm/dl (11.8-15.2); Mean Corpuscular HGB Conc 32 % (32-34); Mean Corpuscular Volume 92 fl (84-94); Platelet Count 161 K/mm3 (140-440); Red Blood Count 4.16 M/mm3 (3.65-5.03)
[2021-11-27 05:52] LABS: Red Cell Distribution Width 20.1 % (13.2-15.2)
[2021-11-27 06:25] LABS: Albumin 3.9 g/dL (3.9-5)
--- NOTE | 2021-11-27 09:42 | Gastroenterology Progress Note ---
Assessment and Plan 1. Hepatic encephalopathy - slowly seems to be improving, responding to lactulose. cont scheduled doses with goal of 3 bm's daily and xifaxin bid. 2. Decompensated cirrhosis - etiology likely alcohol, stable liver enzymes. 3. ascites - small volume on imaging, complete course of abx per primary which will empirically cover possible sbp will sign off, please call as needed. Subjective Date of service: 11/27/21 Principal diagnosis: cirrhosis, AMS Interval history: improving mentation slowly, has had 4 bm's in last 24 hours. still confused but answers basic questions slowly Objective - Exam Narrative Exam: Gen: nad abd: soft, mild dist, nt CV: rrr Neuro: + confusion - Constitutional Vitals: Temp Pulse Resp BP Pulse Ox 97.3 F L 90 15 159/87 99 11/27/21 07:38 11/27/21 07:00 11/27/21 07:00 11/27/21 07:00 11/27/21 08:28 - Labs CBC & Chem 7: 11/27/21 05:10 11/27/21 05:10 Labs: Laboratory Results - last 24 hr 11/26/21 11/26/21 11/26/21 11:30 16:33 23:20 WBC RBC Hgb Hct MCV MCH MCHC RDW Plt Count Sodium Potassium Chloride Carbon Dioxide Anion Gap BUN Creatinine Estimated GFR BUN/Creatinine Ratio Glucose POC Glucose 232 H 177 H 200 H Calcium Total Bilirubin AST ALT Alkaline Phosphatase Total Protein Albumin Albumin/Globulin Ratio 11/27/21 11/27/21 05:10 05:10 WBC 10.5 RBC 4.16 Hgb 12.1 Hct 38.3 MCV 92 MCH 29 MCHC 32 RDW 20.1 H Plt Count 161 Sodium 143 Potassium 3.9 D Chloride 96.9 L Carbon Dioxide 26 Anion Gap 24 BUN 26 H Creatinine 3.5 H Estimated GFR 17 BUN/Creatinine Ratio 7 Glucose 157 H POC Glucose Calcium 9.0 Total Bilirubin 2.00 H AST 83 H ALT 178 H Alkaline Phosphatase 159 H Total Protein 6.2 L Albumin 3.9 Albumin/Globulin Ratio 1.7
[2021-11-27] MEDS: RIFAXIMIN 550 MG TAB FEEDTUBE SCH ×2 (10:08→11:33)
[2021-11-27] MEDS: FAMOTIDINE 20 MG TAB PO SCH ×2 (10:08→11:33)
[2021-11-27] MEDS: ASPIRIN 81 MG TAB CHEW PO SCH ×2 (10:08→11:33)
[2021-11-27] MEDS: allopurinoL 100 MG TAB PO SCH ×2 (10:08→11:33)
[2021-11-27] MEDS: METOPROLOL TARTRATE 25 MG TAB PO SCH ×2 (10:08→11:33)
[2021-11-27] MEDS: SUCRALFATE 1 GM TAB PO SCH ×3 (10:08→11:36)
[2021-11-27] MEDS: FOLIC ACID 1 MG TAB PO SCH ×2 (10:08→11:33)
--- NOTE | 2021-11-27 12:52 | Progress Note ---
Assessment and Plan This is a 76 years old male with past medical history of end-stage renal disease on hemodialysis Thursday, , Thursday and cirrhosis was brought to the hospital from [place] because of sepsis and left lower lobe pneumonia. Most of the history is obtained from the chart patient initially presented to the [facility] on November 18 with complaint of nausea vomiting that began the night of. Around 9 PM. In [facility] patient is found to have pneumonia with effusion patient reportedly has a history of liver failure as well as CT there revealed cirrhosis. In the ER patient reportedly appeared to be dehydrated and was found to have in septic shock with mean arterial pressure of 54. He was admitted to the hospital was put on antibiotic and Levophed. Patient had leukocytosis of 14.66. Renal f unction indicative of end-stage renal disease, lactic at 10 downtrending to 5.5 . patient was admitted for septic shock, pneumonia and end-stage renal disease. According to the chart, patient has history of smoking. Patient awake. Still not following commands well.. Patient is on room air, O2 saturation running 96%. No acute respiratory distress. Patient receiving physical therapy. Patients ABGs on room air, PH 7.37, PCO2 42, PO2 74, HCO3 24 . O2 saturation 94 Patient afebrile. No leukocytosis. Blood pressure 165/85 , Pulse 87 , respirations 9. Chest xray done 11/23/21 reported Cardiomegaly with mild bilateral cardiopulmonary edema and small pleural effusions. Ultrasound of Abdomen 11/25/21 reported Mild cirrhotic changes in the liver, mild splenomegaly and small ascites is suspected. Cholelithiasis but no convincing evidence for acute cholecystitis. Patient is on albuterol inhaler, Famotidine , Sucralfate. Recommend DVT prophylaxis, at least SCDs. I spent critical care time of 35 minutes, reviewing the chart, examine the patient, review chest xray and lab results and work up plan of treatment in this critically ill patient. - Patient Problems (1) Pulmonary edema Status: Acute Plan to address problem: Recommend lasix. Management as per cardiology. (2) End-stage renal disease on hemodialysis Status: Acute Plan to address problem: Management as per nephrology. (3) Cirrhosis Status: Acute Plan to address problem: Management as per primary care and gastroenterology. (4) Elevated troponin Status: Acute Plan to address problem: Management as per Cardiology. (5) Metabolic encephalopathy Status: Acute Plan to address problem: Management as per primary care and neurology. (6) Pneumonia Status: Acute Plan to address problem: Chest xray more of suggestive as pulmonary edema. In case underlying infection, Patient was empirically covered with ceftriaxone and Zithromax. (7) Sepsis Status: Acute Plan to address problem: Patient was on ceftriaxone and Zithromax. Subjective Date of service: 11/27/21 Principal diagnosis: ESRD Interval history: This is a 76 years old male with past medical history of end-stage renal disease on hemodialysis Thursday, , Thursday and cirrhosis was brought to the hospital from [place] because of sepsis and left lower lobe pneumonia. Most of the history is obtained from the chart patient initially presented to the [facility] on November 18 with complaint of nausea vomiting that began the night of. Around 9 PM. In [facility] patient is found to have pneumonia with effusion patient reportedly has a hist ory of liver failure as well as CT there revealed cirrhosis. In the ER patient reportedly appeared to be dehydrated and was found to have in septic shock with mean arterial pressure of 54. He was admitted to the hospital was put on antibiotic and Levophed. Patient had leukocytosis of 14.66. Renal function indicative of end-stage renal disease, lactic at 10 downtrending to 5.5 . patient was admitted for septic shock, pneumonia and end-stage renal disease. According to the chart, patient has history of smoking. Patient awake. Still not following commands well.. Patient is on room air, O2 sa turation running 96%. No acute respiratory distress. Patient receiving physical therapy. Patients ABGs on room air, PH 7.37, PCO2 42, PO2 74, HCO3 24 . O2 saturation 94 Patient afebrile. No leukocytosis. Blood pressure 165/85 , Pulse 87 , respirations 9. Chest xray done 11/23/21 reported Cardiomegaly with mild bilateral cardiopulmonary edema and small pleural effusions. Ultrasound of Abdomen 11/25/21 reported Mild cirrhotic changes in the liver, mild splenomegaly and small ascites is suspected. Cholelithiasis but no convincing evidence for acute cholecystitis. Patient is on albuterol inhaler, Famotidine, Sucralfate. Recommend DVT prophylaxis, at least SCDs. Objective Vital Signs - 12hr 11/27/21 11/27/21 11/27/21 01:00 02:00 03:00 Temperature 98.3 F Pulse Rate 95 H 91 H 98 H Pulse Rate [ From Monitor] Respiratory 12 14 Rate Blood Pressure 180/87 180/87 148/124 O2 Sat by Pulse 99 97 99 Oximetry 11/27/21 11/27/21 11/27/21 04:00 05:00 06:00 Temperature Pulse Rate 129 H 93 H Pulse Rate [ 97 H From Monitor] Respiratory 15 Rate Blood Pressure 156/83 156/83 156/83 O2 Sat by Pulse 97 99 96 Oximetry 11/27/21 11/27/21 11/27/21 07:00 07:38 08:00 Temperature 97.3 F L Pulse Rate 90 87 Pulse Rate [ From Monitor] Respiratory 15 9 L Rate Blood Pressure 159/87 160/76 O2 Sat by Pulse 99 98 Oximetry 11/27/21 11/27/21 11/27/21 08:28 09:00 10:00 Temperature Pulse Rate 80 85 Pulse Rate [ From Monitor] Respiratory 9 L 8 L Rate Blood Pressure 160/76 161/76 O2 Sat by Pulse 99 98 96 Oximetry Constitutional: no acute distress, alert Eyes: icteric ENT: oropharynx moist Neck: supple, no JVD Effort: mildly labored Ascultation: Bilateral: rales Cardiovascular: regular rate and rhythm Gastrointestinal: hypoactive bowel sounds, soft, non-tender Integumentary: normal Extremities: no cyanosis, no edema Neurologic: unable to assess Psychiatric: other (Unable to obtain. Patient still not following commands.) CBC and BMP: 11/27/21 05:10 11/27/21 05:10 ABG, PT/INR, D-dimer: ABG ABG pH 7.373 pH Units (7.350-7.450) 11/25/21 15:10 ABG pCO2 42.1 mm Hg 11/25/21 15:10 ABG pO2 73.9 mm Hg (80.0-90.0) L 11/25/21 15:10 ABG O2 Saturation 96.7 % (95.0-99.0) 11/25/21 15:10 PT/INR, D-dimer PT 16.0 Sec. (12.2-14.9) H 11/26/21 04:28 INR 1.15 (0.87-1.13) H 11/26/21 04:28 Abnormal lab findings: Abnormal Labs 11/24/21 11/24/21 11/24/21 02:37 03:19 03:19 Hgb Hct MCV 95 H RDW 20.7 H Plt Count 133 L Seg Neuts % (Manual) 80.0 H Lymphocytes % (Manual) 9.0 L Monocytes % (Manual) 10.0 H Nucleated RBC % Lymphocytes # (Manual) 0.8 L Monocytes # (Manual) 0.9 H PT 15.9 H INR 1.14 H ABG pO2 ABG Hemoglobin Oxyhemoglobin Chloride 95.8 L Carbon Dioxide 20 L BUN 30 H Creatinine 4.6 H Glucose POC Glucose Phosphorus Total Bilirubin 2.50 H AST 330 H ALT 324 H Alkaline Phosphatase 170 H CK-MB (CK-2) Rel Index Troponin T Total Protein 5.6 L Albumin 3.5 L Triglycerides 215 H HDL Cholesterol 22 L 11/24/21 11/24/21 11/24/21 03:19 15:09 20:19 Hgb Hct MCV RDW Plt Count Seg Neuts % (Manual) Lymphocytes % (Manual) Monocytes % (Manual) Nucleated RBC % Lymphocytes # (Manual) Monocytes # (Manual) PT INR ABG pO2 ABG Hemoglobin Oxyhemoglobin Chloride Carbon Dioxide BUN Creatinine Glucose POC Glucose Phosphorus Total Bilirubin AST ALT Alkaline Phosphatase CK-MB (CK-2) Rel Index 4.2 H 4.4 H Troponin T 0.560 H* 0.576 H* 0.579 H* Total Protein Albumin Triglycerides HDL Cholesterol 11/25/21 11/25/21 11/25/21 04:23 04:23 04:23 Hgb 11.0 L Hct 33.5 L D MCV RDW 20.4 H Plt Count 112 L Seg Neuts % (Manual) Lymphocytes % (Manual) Monocytes % (Manual) Nucleated RBC % Lymphocytes # (Manual) Monocytes # (Manual) PT 16.0 H INR 1.15 H ABG pO2 ABG Hemoglobin Oxyhemoglobin Chloride Carbon Dioxide 21 L BUN 38 H Creatinine 5.3 H Glucose POC Glucose Phosphorus Total Bilirubin 1.90 H AST 175 H ALT 222 H Alkaline Phosphatase 142 H CK-MB (CK-2) Rel Index Troponin T Total Protein 5.2 L Albumin 3.1 L Triglycerides HDL Cholesterol 11/25/21 11/25/21 11/26/21 15:10 19:58 04:28 Hgb Hct MCV RDW 20.6 H Plt Count 119 L Seg Neuts % (Manual) 93.0 H Lymphocytes % (Manual) 4.0 L Monocytes % (Manual) Nucleated RBC % 1.0 H Lymphocytes # (Manual) 0.3 L Monocytes # (Manual) PT INR ABG pO2 73.9 L ABG Hemoglobin 7.9 L Oxyhemoglobin 94.2 L Chloride Carbon Dioxide BUN Creatinine Glucose POC Glucose Phosphorus 6.10 H Total Bilirubin AST ALT Alkaline Phosphatase CK-MB (CK-2) Rel Index Troponin T Total Protein Albumin Triglycerides HDL Cholesterol 11/26/21 11/26/21 11/26/21 04:28 04:28 11:30 Hgb Hct MCV RDW Plt Count Seg Neuts % (Manual) Lymphocytes % (Manual) Monocytes % (Manual) Nucleated RBC % Lymphocytes # (Manual) Monocytes # (Manual) PT 16.0 H INR 1.15 H ABG pO2 ABG Hemoglobin Oxyhemoglobin Chloride Carbon Dioxide 20 L BUN 45 H Creatinine 5.7 H Glucose 162 H POC Glucose 232 H Phosphorus Total Bilirubin 2.20 H AST 113 H ALT 190 H Alkaline Phosphatase 149 H CK-MB (CK-2) Rel Index Troponin T Total Protein Albumin 3.1 L Triglycerides HDL Cholesterol 11/26/21 11/26/21 11/27/21 16:33 23:20 05:10 Hgb Hct MCV RDW 20.1 H Plt Count Seg Neuts % (Manual) Lymphocytes % (Manual) Monocytes % (Manual) Nucleated RBC % Lymphocytes # (Manual) Monocytes # (Manual) PT INR ABG pO2 ABG Hemoglobin Oxyhemoglobin Chloride Carbon Dioxide BUN Creatinine Glucose POC Glucose 177 H 200 H Phosphorus Total Bilirubin AST ALT Alkaline Phosphatase CK-MB (CK-2) Rel Index Troponin T Total Protein Albumin Triglycerides HDL Cholesterol 11/27/21 05:10 Hgb Hct MCV RDW Plt Count Seg Neuts % (Manual) Lymphocytes % (Manual) Monocytes % (Manual) Nucleated RBC % Lymphocytes # (Manual) Monocytes # (Manual) PT INR ABG pO2 ABG Hemoglobin Oxyhemoglobin Chloride 96.9 L Carbon Dioxide BUN 26 H Creatinine 3.5 H Glucose 157 H POC Glucose Phosphorus Total Bilirubin 2.00 H AST 83 H ALT 178 H Alkaline Phosphatase 159 H CK-MB (CK-2) Rel Index Troponin T Total Protein 6.2 L Albumin Triglycerides HDL Cholesterol
--- NOTE | 2021-11-27 13:14 | Progress Note ---
Assessment and Plan - Patient Problems (1) Elevated troponin Current Visit: Yes Status: Acute Plan to address problem: Patient transferred from hospital in [place], for continued management of sepsis. No cardiac complaints, echocardiogram on this presentation shows ejection fraction is well-preserved at 50 to 55%. Conservative cardiac management, will follow intermittently. Subjective Date of service: 11/27/21 Principal diagnosis: ESRD Interval history: Patient is comfortable, no acute distress, no new cardiac events reported. Objective Vital Signs Temp Pulse Pulse Pulse Resp Resp BP 11/27/21 13:00 96.5 F L 80 9 L 157/73 11/27/21 12:00 87 83 9 L 165/85 11/27/21 11:00 92 H 11 L 170/82 11/27/21 10:00 85 8 L 161/76 11/27/21 09:00 80 9 L 160/76 11/27/21 08:28 11/27/21 08:00 87 86 15 160/76 11/27/21 07:38 97.3 F L 11/27/21 07:00 90 15 159/87 11/27/21 06:00 156/83 11/27/21 05:00 93 H 156/83 11/27/21 04:00 129 H 97 H 15 156/83 11/27/21 03:00 98.3 F 98 H 148/124 11/27/21 02:00 91 H 14 180/87 11/27/21 01:00 95 H 12 180/87 11/27/21 00:00 97 H 97 H 17 150/102 11/26/21 23:44 98.4 F 11/26/21 23:28 90 12 180/87 11/26/21 23:00 101 H 17 180/87 11/26/21 22:00 99 H 12 170/85 11/26/21 21:00 90 9 L 82/61 11/26/21 20:00 97.5 F L 90 97 H 12 137/58 11/26/21 19:00 100 H 10 L 146/74 11/26/21 18:50 97.0 F L 94 H 14 173/78 11/26/21 18:22 105 H 155/80 11/26/21 18:15 99 H 159/64 11/26/21 18:00 95 H 15 151/77 11/26/21 17:45 101 H 170/96 11/26/21 17:30 105 H 133/77 11/26/21 17:15 91 H 151/75 11/26/21 17:00 92 H 12 176/83 11/26/21 16:45 97 H 171/74 11/26/21 16:44 97.7 F 11/26/21 16:30 90 128/89 11/26/21 16:15 92 H 160/86 11/26/21 16:00 97 H 97 H 15 174/94 11/26/21 15:45 91 H 139/84 11/26/21 15:30 86 162/81 11/26/21 15:22 85 162/83 11/26/21 15:15 98.2 F 87 10 L 161/83 11/26/21 15:00 90 92 H 11 L 16 152/88 11/26/21 14:00 90 11 L 156/91 Pulse Ox Pulse Ox 11/27/21 13:00 96 11/27/21 12:00 96 11/27/21 11:00 97 11/27/21 10:00 96 11/27/21 09:00 98 11/27/21 08:28 99 11/27/21 08:00 99 11/27/21 07:38 11/27/21 07:00 99 11/27/21 06:00 96 11/27/21 05:00 99 11/27/21 04:00 97 11/27/21 03:00 99 11/27/21 02:00 97 11/27/21 01:00 99 11/27/21 00:00 97 11/26/21 23:44 11/26/21 23:28 99 11/26/21 23:00 11/26/21 22:00 98 11/26/21 21:00 100 11/26/21 20:00 100 11/26/21 19:00 100 11/26/21 18:50 100 11/26/21 18:22 11/26/21 18:15 11/26/21 18:00 100 11/26/21 17:45 11/26/21 17:30 11/26/21 17:15 11/26/21 17:00 14 L 11/26/21 16:45 11/26/21 16:44 11/26/21 16:30 11/26/21 16:15 11/26/21 16:00 100 11/26/21 15:45 11/26/21 15:30 11/26/21 15:22 11/26/21 15:15 100 11/26/21 15:00 95 11/26/21 14:00 99 - Physical Examination General: No Apparent Distress HEENT: Positive: PERRL Neck: Positive: neck supple Cardiac: Positive: Reg Rate and Rhythm Lungs: Positive: Decreased Breath Sounds Neuro: Positive: Weakness (Generalized lethargy) Abdomen: Positive: Soft Skin: Positive: Clear Extremities: Absent: edema - Labs and Meds Cardiac Enzymes 11/27/21 Range/Units 05:10 AST 83 H (5-40) units/L CBC 11/27/21 Range/Units 05:10 WBC 10.5 (4.5-11.0) K/mm3 RBC 4.16 (3.65-5.03) M/mm3 Hgb 12.1 (11.8-15.2) gm/dl Hct 38.3 (35.5-45.6) % Plt Count 161 (140-440) K/mm3 Comprehensive Metabolic Panel 11/27/21 Range/Units 05:10 Sodium 143 (137-145) mmol/L Potassium 3.9 D (3.6-5.0) mmol/L Chloride 96.9 L (98-107) mmol/L Carbon Dioxide 26 (22-30) mmol/L BUN 26 H (9-20) mg/dL Creatinine 3.5 H (0.8-1.3) mg/dL Glucose 157 H (75-100) mg/dL Calcium 9.0 (8.4-10.2) mg/dL AST 83 H (5-40) units/L ALT 178 H (7-56) units/L Alkaline Phosphatase 159 H (35-129) units/L Total Protein 6.2 L (6.3-8.2) g/dL Albumin 3.9 (3.9-5) g/dL
--- NOTE | 2021-11-27 13:15 | Progress Note ---
Assessment and Plan Assessment: Sepsis Pneumonia End-stage renal disease on hemodialysis Cirrhosis Metabolic encephalopathy Transaminitis Elevated troponin Plan: -Hemodialysis tomorrow for UF and clearance -No acute HD indication today -Fluid restriction of 1 liter per day -Renally dose all medications -Obtain daily weights -Monitor I/O's daily -Assess dialysis needs daily -On hemodialysis TTS outpatiently -Plan of care reviewed by Dr. Jay Subjective Date of service: 11/27/21 Principal diagnosis: ESRD Interval history: Patient seen lying in bed. He is lethargic. Objective - Vital Signs Vital signs: Vital Signs - 12hr 11/27/21 11/27/21 11/27/21 02:00 03:00 04:00 Temperature 98.3 F Pulse Rate 91 H 98 H 129 H Pulse Rate [ 97 H From Monitor] Respiratory 14 15 Rate Blood Pressure 180/87 148/124 156/83 O2 Sat by Pulse 97 99 97 Oximetry 11/27/21 11/27/21 11/27/21 05:00 06:00 07:00 Temperature Pulse Rate 93 H 90 Pulse Rate [ From Monitor] Respiratory 15 Rate Blood Pressure 156/83 156/83 159/87 O2 Sat by Pulse 99 96 99 Oximetry 11/27/21 11/27/21 11/27/21 07:38 08:00 08:28 Temperature 97.3 F L Pulse Rate 87 Pulse Rate [ 86 From Monitor] Respiratory 15 Rate Blood Pressure 160/76 O2 Sat by Pulse 99 99 Oximetry 11/27/21 11/27/21 11/27/21 09:00 10:00 11:00 Temperature Pulse Rate 80 85 92 H Pulse Rate [ From Monitor] Respiratory 9 L 8 L 11 L Rate Blood Pressure 160/76 161/76 170/82 O2 Sat by Pulse 98 96 97 Oximetry 11/27/21 11/27/21 12:00 13:00 Temperature 96.5 F L Pulse Rate 87 80 Pulse Rate [ 83 From Monitor] Respiratory 9 L 9 L Rate Blood Pressure 165/85 157/73 O2 Sat by Pulse 96 96 Oximetry - General Appearance General appearance: other (Lethargic) EENT: ATNC Neck: no JVD, supple Respiratory: Present: Decreased Breath Sounds Cardiology: S1S2 Gastrointestinal: normoactive bowel sounds, other (has dobhoff) Integumentary: warm and dry Neurologic: other (Lethargic) Musculoskeletal: decreased ROM, other (no edema) - Lab 08/31/22 05:10 11/27/21 05:10 Most recent lab results ABG pH 7.373 pH Units (7.350-7.450) 11/25/21 15:10 ABG pCO2 42.1 mm Hg 11/25/21 15:10 ABG pO2 73.9 mm Hg (80.0-90.0) L 11/25/21 15:10 ABG HCO3 23.9 mmol/L (20.0-26.0) 11/25/21 15:10 ABG O2 Saturation 96.7 % (95.0-99.0) 11/25/21 15:10 Calcium 9.0 mg/dL (8.4-10.2) 11/27/21 05:10 Phosphorus 6.10 mg/dL (2.5-4.5) H 11/25/21 19:58 Magnesium 2.10 mg/dL (1.7-2.3) 11/25/21 19:58 Medications & Allergies - Medications Allergies/Adverse Reactions: Allergies No Known Allergies Allergy (Verified 11/24/21 02:09) Home Medications: Home Medications Medication Instructions Recorded Confirmed Last Taken Type ALBUTEROL NEB's [Proventil 0.083% 1 puff PO Q40MIN PRN 11/24/21 11/24/21 Unknown History NEBS] Aspirin [Aspirin BABY CHEW TAB] 81 mg PO QDAY 11/24/21 11/24/21 Unknown History Carafate 1 gm PO ACHS 11/24/21 11/24/21 Unknown History Darbepoetin Hari in Polysorbat 60 mcg SQ QWEEK 11/24/21 11/24/21 Unknown History [Aranesp] Folic Acid [Folvite] 1 mg PO QDAY 11/24/21 11/24/21 Unknown History Furosemide [Lasix] 40 mg PO QDAY 11/24/21 11/24/21 Unknown History Loratadine [Allergy Relief] 10 mg PO QDAY 11/24/21 11/24/21 Unknown History Pantoprazole [Protonix] 40 mg PO BID 11/24/21 11/24/21 Unknown History Simvastatin 20 mg PO QHS 11/24/21 11/24/21 Unknown History allopurinoL [Zyloprim] 100 mg PO QDAY 11/24/21 11/24/21 Unknown History amLODIPine 5 mg PO QDAY 11/24/21 11/24/21 Unknown History Active Medications: Generic Name Dose Route Start Last Admin Trade Name Freq PRN Reason Stop Dose Admin Allopurinol 100 mg 11/27/21 10:00 11/27/21 11:33 Allopurinol 100 Mg Tab PO Not Given QDAY [facility] Aspirin 81 mg 11/24/21 10:00 11/27/21 11:33 Aspirin 81 Mg Tab Chew PO Not Given QDAY [facility] Famotidine 20 mg 11/26/21 10:00 11/27/21 11:33 Famotidine 20 Mg Tab PO Not Given DAILY [facility] Folic Acid 1 mg 11/25/21 10:00 11/27/21 11:33 Folic Acid 1 Mg Tab PO Not Given QDAY [facility] Lactulose 20 gm 11/25/21 08:00 11/27/21 11:32 Lactulose 20 Gm/30 Ml Oral Liqd PO Not Given Q6H [facility] Metoprolol Tartrate 25 mg 11/25/21 22:00 11/27/21 11:33 Metoprolol Tartrate 25 Mg Tab PO Not Given BID [facility] Ondansetron HCl 4 mg 11/23/21 23:05 Ondansetron 4 Mg/2 Ml Inj IV Q8H PRN Nausea And Vomiting Rifaximin 550 mg 11/25/21 14:00 11/27/21 11:33 Rifaximin 550 Mg Tab FEEDTUBE Not Given BID HUGH Sodium Chloride 10 ml 11/24/21 10:00 11/27/21 10:08 Sodium Chloride 0.9% 10 Ml Flush Syringe IV 10 ml BID HUGH Administration Sodium Chloride 10 ml 11/23/21 23:05 Sodium Chloride 0.9% 10 Ml Flush Syringe IV PRN PRN LINE FLUSH Sucralfate 1 gm 11/26/21 16:30 11/27/21 11:36 Sucralfate 1 Gm Tab PO Not Given ACHS HUGH
--- NOTE | 2021-11-27 14:17 | Discharge Summary ---
Providers - Providers Date of Admission: 11/23/21 23:19 Attending physician: MANDA BRENNER MD 11/23/21 23:05 Consult to Physician [CONS] Routine Comment: Consulting Provider: BRANDON GANN Physician Instructions: Reason For Exam: esrd 11/24/21 06:46 Consult to Physician [CONS] Routine Comment: Consulting Provider: AUBREY BALTAZAR Physician Instructions: Reason For Exam: sepsis 11/24/21 06:50 Consult to Physician [CONS] Routine Comment: called answ. serv./ van Consulting Provider: VISHNU BARRY Physician Instructions: Reason For Exam: Elevated liver function test Consult to Physician [CONS] Routine Comment: called answ. serv/ van Consulting Provider: LATANYA OSEGUERA Physician Instructions: Reason For Exam: Elevated troponin 11/25/21 07:29 Consult to Dietitian/Nutrition [CONS] Routine Physician Instructions: Reason For Exam: Reason for Consult: Write/Manage Tube Feeding 11/26/21 13:55 Occupational Therapy Evaluate and Treat [CONS] Routine Comment: Reason For Exam: debility Physical Therapy Evaluation and Treat [CONS] Routine Comment: Reason For Exam: debility 11/27/21 10:22 Speech Therapy Evaluation and Treat [CONS] Urgent Reason For Exam: coughing after liquid and med administration; Primary care physician: [employer] Hospitalization Reason for admission: HEPATIC ENCEPHALOPATHY Hospital course: This is a 76-year-old male with ESRD on HD (Thursday), 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 Per family patient was out of state in [facility] last week during his birthday and felt sick and vomited and was at an urgent care in [place] then transferred over to a facility in [place] for hemodialysis. Per granddaughter patient received dialysis on 10/20 and 10/22. After his treatment on 10/22 patient had altered mental status. Per granddaughter patient was being treated with nafcillin which was changed to Zosyn after blood cultures grew staph and patient also was noted to have pleural effusions. Per documentation patient was started on Levophed for septic shock with lactic acidosis. Patient was admitted to the hospital service with septic shock, pneumonia and ESRD with consults to nephrology, CCM, GI and cardiology. Patient remains encephalopathic. Spoke to son at bedside. Patient had apparently been hospitalized in [facility] approximately 1.5 weeks ago. Facility was too small to handle patient care so he was airlifted to a facility in [place]. Patient had been treated for pneumonia in [place] as well as given dialysis treatments. He demonstrated some moderate improvement but did not have complete resolution of symptoms. Patient family subsequently drove him down to [place]. They are residents of [place] however patient family opted to admit patient at [facility]. Per son, patient has an extensive drinking history. He had only recently been told by physicians at the hospital in [place] the patient has liver disease. Patient has been on hemodialysis for approximately 1 year now. He is tolerating hemodialysis well and has been compliant with this. The son did note that the patient prior to being hospitalized was drinking extensively with family while [place] were [place] a casino. Prior to this he had been drinking frequently per the son. Chest xray done 11/23/21 reported Cardiomegaly with mild bilateral cardiopulmonary edema and small pleural effusions. Ultrasound of Abdomen 11/25/21 reported Mild cirrhotic changes in the liver, mild splenomegaly and small ascites is suspected. Cholelithiasis but no convincing evidence for acute cholecystitis. Hospital course to date: 11/24 patient started on lactulose and rifaximin. Due to her inadequate oral intake patient started on Nepro. Echocardiogram completed today. We will also obtain a right upper quadrant ultrasound to rule out biliary duct dilation. 11/25: Remain encephalopathic. RUQ ultrasound demonstrates mild cirrhotic changes with mild splenomegaly and small ascites. Cholelithiasis observed in study however no evidence of cholecystitis. Will get hemodialysis today. Continue therapy with lactulose. Added solumedrol IV. Would consider rifaximin but will follow GI direction regarding admin. 11/26: Patient showing some slow improvement in the area of mental status. Not quite yet at baseline. LFTs at gradually trending down. I did get some more information on the patient. Apparently the patient had a GI bleed to sometimes earlier this year late last year was admitted to [place] at that time was diagnosed with liver cirrhosis. Hemodialysis has been going on for about 2 years patient was on initially on PD then converted to HD. I will request records from [place] and also from [facility] in [place]. I will also try to request hospital from the facility in [place]. I did discuss with GI doctor we agreed that steroids should be discontinued at this time. Patient does have a thrombocytopenia which is showing some improvement. Concern that the patient passed bedside swallow evaluation with aspiration and fall precaution in place patient can be resumed on oral diet including continue lactulose. If continues to show improvement anticipate consideration for LTAC in 24 to 48 hours 11/27: Patient seen and examined, discussed extensively with the GI physician and we agreed patient can be discharged to LTAC for continued lactulose and refixamin, no surgical internvention needed at this time. Due to persistent encephalopathy and failed exam the Patient had a dobhoff placed for continued care, Family is considering AND/DNR but will decide over the next day or so. Discussed and signed off to the LTAC team. 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 Neuro: Acute metabolic encephalopathy. possible Hepatic encephalopathy, current EtOH abuse -Reorientation as needed -Maintain sleep-wake cycle -As needed analgesia -Per family patient's mental status is much improved -Lactulose MS -Ammonia 31 Cardiac: Elevated troponin, h/o HTN, CAD with CABG x3 -Cardiology consulted, appreciate recommendations -Blood pressure monitoring per protocol -Patient was on vasopressor support at OSH but currently not needing any -Echocardiogram from [place] reveals LVEF 35 to 40% Respiratory: Current nicotine abuse -CCM consulted, appreciate recommendations -Currently on room air -SPO2 monitoring -Pulmonary hygiene GI: Moderate protein calorie malnutrition, transaminitis, h/o EtOH cirrhosis, alcoholic hepatitis, cirrhosis -GI consulted, appreciate recommendations - MELD-Na: 21, 7-10% est mortality. - Bili: 1.9, AST: 175, ALT: 22, ALP: 142, Alb: 3.1 -Per family patient has been evaluated by [place] [facility] not a candidate for transplant due to active drinking hx. -Patient takes MS lactulose, would consider rifaximin -added solumedrol -PPI -Cardiac, consistent carbohydrate renal diet -Nutrition supplementation -BR: Lactulose MS -Abd US: demonstrates mild cirrhotic changes with mild splenomegaly and small ascites. Cholelithiasis observed in study however no evidence of cholecystitis -Trend LFTs, hold potential hepatotoxins (apap, statins) : ESRD on HD -Nephrology consulted, appreciate recommendations -Monitor intake and output -Outpatient Thursday -HD per nephrology -Renally dose medications -Avoid nephrotoxic medications -Trend BMP ID: r/o Sepsis -Per family patient was being treated for right lower lobe pneumonia and sepsis at OSH and received a total of 7 days of antibiotics -CXR shows cardiomegaly with mild bilateral cardiopulmonary edema and small pleural effusions -Antibiotic therapy with cefepime and vancomycin -Given no leukocytosis, afebrile nature and no clearly identifiable source of infection with likely 7 days of abx therapy at OSH (staph bacteremia treated with nafcillin and Zosyn at OSH per family), will stop cefepime and vancomycin -Restart antibiotic therapy if needed -P.o. rifaximin -f/u blood culture -Monitor WBC and temperature curve Endo: h/o DM -Avoid hypoglycemia -SSI -Accu-Cheks q. 6 Heme: Elevated INR, AOCD, thrombocytopenia -Trend CBC -Transfuse hemoglobin less than 7 -SCDs to BLE while in bed Disposition: [facility] Final Discharge Diagnosis (Prints w/discharge instructions): Acute metabolic encephalopathy. possible Hepatic encephalopathy, Possible current EtOH abuse. Elevated troponin, h/o HTN, CAD with CABG x3. Moderate protein calorie malnutrition, transaminitis, h/o EtOH cirrhosis, alcoholic hepatitis, cirrhosis Time spent for discharge: 35 mins Core Measure Documentation - Palliative Care Palliative Care/ Comfort Measures: Not Applicable - Core Measures Any of the following diagnoses?: none Exam - Physical Exam Narrative exam: General appearance: Present: no acute distress, cachectic, other (Chronically ill-appearing), responsive, but with intermittent confusion - EENT Eyes: Present: PERRL, EOM intact ENT: clear oral mucosa, dentition normal - Neck Neck: Present: normal ROM - Respiratory Respiratory effort: normal Respiratory: bilateral: diminished - Cardiovascular Rhythm: regular Heart Sounds: Present: S1 & S2. Absent: systolic murmur, diastolic murmur - Extremities Extremities: no ischemia, pulses intact, pulses symmetrical, No edema, normal temperature, normal color Peripheral Pulses: within normal limits - Abdominal General gastrointestinal: soft, non-tender, non-distended, normal bowel sounds - Integumentary Integumentary: Present: warm, dry - Psychiatric Psychiatric: cooperative - Neurologic Neurologic: CNII-XII intact, no focal deficits, moves all extremities - Allied Health Allied health notes reviewed: nursing - Constitutional Vitals: Temp Pulse Resp BP Pulse Ox 96.5 F L 80 9 L 157/73 96 11/27/21 13:00 11/27/21 13:00 11/27/21 13:00 11/27/21 13:00 11/27/21 13:00 Plan Activity: advance as tolerated, fall precautions Diet: low fat, renal Special Instructions: record daily weights, record daily BP diary Follow up with: PRIMARY CARE, [Primary Care Provider] - 7 Days Prescriptions: Lactulose [Cephulac] 20 gm PO Q6H #90 oral.liqd Metoprolol [Lopressor TAB] 25 mg PO BID #60 tablet Rifaximin [Xifaxan] 550 mg FEEDTUBE BID #60 tablet
--- NOTE | 2021-11-27 15:52 | XRay Report ---
ABDOMEN 1 VIEW 11/27/2021 2:46 PM INDICATION / CLINICAL INFORMATION: s/p dht placement. COMPARISON: None available. FINDINGS: Dobbhoff tube tip is within the stomach Signer Name: Osmany Rashid MD Signed: 11/27/2021 3:47 PM Workstation Name: [id number]
[2021-11-27 16:13] VITALS: BP 166/70
== END 2021-11-27 16:14 | DRG 441 ==
LOC: CC1 22:41 → UNDOADMIN 22:41 → IMCU 23:19
PROVIDERS: ADMIT Hospitalist; ATTEND Internal Medicine
PROC: 4A033R1 Measurement of Arterial Saturation, Peripheral, Percutaneous Approach (ICD-10-PCS; principal; 2021-11-25)
PROC: 5A1D70Z Performance of Urinary Filtration, Intermittent, Less than 6 Hours Per Day (ICD-10-PCS; 2021-11-26)
DX: K72.90 Hepatic failure, unspecified without coma (principal); G93.41 Metabolic encephalopathy; N18.6 End stage renal disease; E44.0 Moderate protein-calorie malnutrition; I13.2 Hypertensive heart and chronic kidney disease with heart failure and with stage 5 chronic kidney disease, or end stage renal disease; Z68.25 Body mass index [BMI] 25.0-25.9, adult; K70.31 Alcoholic cirrhosis of liver with ascites; R77.8 Other specified abnormalities of plasma proteins; I25.10 Atherosclerotic heart disease of native coronary artery without angina pectoris; Z95.1 Presence of aortocoronary bypass graft; F17.200 Nicotine dependence, unspecified, uncomplicated; D63.8 Anemia in other chronic diseases classified elsewhere; K70.11 Alcoholic hepatitis with ascites; I27.20 Pulmonary hypertension, unspecified; I50.810 Right heart failure, unspecified; D69.6 Thrombocytopenia, unspecified; Z82.49 Family history of ischemic heart disease and other diseases of the circulatory system
CPT/HCPCS: 36415; 36600; 71045; 74018; 76700; 80053; 80061; 80074; 82140; 82550; 82553; 82803; 82962; 83735; 84100; 84484; 85007; 85025; 85027; 85610; 87040; 93005; 93306; 94640; G0378; C8929; J0456; J0696; J2270; J2920